=== PATIENT | female | born 1950 | race Native Hawaiian/Other Pacific Islander ===

== ENCOUNTER 2016-10-05 10:54 | Inpatient (IN) | payer OTHER, MEDICAID ==
[~2016-10-05] VITALS: Ht 160 cm; Wt 72.7 kg
[2016-10-05 11:05] VITALS: BP 141/60; PULSE 80; RESP 16; O2SAT 96
[2016-10-05 11:24] LABS: BASOPHILS % (AUTO) 0.1 % (0-3); EOSINOPHILS % (AUTO) 1.9 % (0-5); MONOCYTES % (AUTO) 9.9 % (4-12); Mean Corpuscular Hemoglobin 29.1 pg (27.0-35.0); Mean Corpuscular Volume 90.2 fL (81-100); NEUTROPHILS % (AUTO) 62.2 % (40-74); Platelet Count 281 bil/L (150-400)
[2016-10-05 12:27] LABS: APPEARANCE,URINE HAZY (CLEAR,HAZY); COLOR,URINE YELLOW (YELLOW); OCCULT BLOOD,URINE TRACE (NEGATIVE); UROBILINOGEN,URINE NORMAL (NORMAL)
--- NOTE | 2016-10-05 13:21 | ED.REPORT ---
HPI-Psychiatric Illness Date of Service Oct 05, 2016 ED Provider: Anita Dodge History of Present Illness: patient brought in by police. released from [facility] after being there 1 day. Police feel unable to care for self. When seen in [facility] and asked how long she will be there, she replied "once they find out I did not kill the body in my yard, I will be released". denies medications or primary care. Denies health concerns. Nursing Notes Stated Complaint: PSYCHOSIS Chief Complaint: Psychiatric Complaint Nursing Notes Reviewed: Yes Allergies: Coded Allergies: No Known Allergies (Unverified , 10/05/16) General Time Seen by MD: 10:56 Chief Complaint Bizarre behavior Hx Obtained From: Patient, Police Arrived By: Police Risk-Psychiatric Illness Suicide Risk Stratification Suicide Risk Factors - Adult: No: Access to firearms, Alcohol use, Close associate suicide, Family Hx of Suicide, Previous attempt, Prior psych admission , Substance abuse RF Statements: Risk factors reviewed Past Medical History Past Medical History denies Past Surgical History denies Social History unable to obtain, rambling Review of Systems Basic Review of Systems Eyes: Vision NL, No discharge ENT: Hearing NL, No pain, No nasal congestion, No pharyngeal pain : No dysuria, No frequency Musculoskeletal: No extremity swelling, No extremity pain, Full range of motion , Joints NL Hematologic: No bleeding, No bruising Endocrine: No cold intolerance, No heat intolerance, No weight gain, No weight loss Allergy / Immune: No allergy Physical Exam Initial Vital Signs Vital Signs (First) Date Time Temp Pulse Resp B/P Pulse Ox O2 Delivery O2 Flow Rate FiO2 10/05/16 11:05 36.7 80 16 141/60 96 Room Air Initial VS: Reviewed, Vital signs normal Head / Eyes: Atraumatic, Normocephalic, PERRL ENT: Mucous membranes moist, Conjunctiva normal, No scleral icterus Neck: Supple, Non-tender, Full range of motion Respiratory: Breath sounds normal, Clear to auscultation, No respiratory distress Cardiovascular: Regular rate & rhythm, Heart sounds normal, Intact distal pulses Abdomen / GI: Soft, Non-tender, No guarding, No rebound, No distention Back: No CVA tenderness Lymphatic: No lymphadenopathy Extremities: Vascular intact, Neuro intact, No swelling, No tenderness Skin: Warm, Dry, No cyanosis General/Constitutional: Awake, Alert, No acute distress, Cooperative Neurologic: Oriented X3, Speech NL, No motor deficits Abnormal Thinking / Perception: Positive: Delusions - paranoid appears unkempt, toenails long, hair has not been combed Head / Eyes: Atraumatic, Normocephalic, PERRL ENT: Atraumatic, Airway patent, Mucous membranes moist, Pharynx NL Respiratory / Chest: Atraumatic, Breath sounds NL, Breath sounds = bilat Cardiovascular: Heart rate NL, Regular rhythm, Heart sounds NL Abdomen: Atraumatic, Soft, Non-tender, McBurney's non-tender toenails are long with no recent triming, patient states can't reach her nails Interpretation & Diagnostics Lab Results Interpretation Result Diagram: 10/05/16 1115 10/05/16 1115 Test 10/05/16 11:15 10/05/16 11:26 10/05/16 11:40 White Blood Count 7.2th/mm3 (3.8-10.1) Red Blood Count 4.50mil/mm3 (3.90-5.20) Hemoglobin 13.1g/dL (12.0-15.6) Hematocrit 40.6% (35.0-46.0) Mean Corpuscular Volume 90.2fL (81-100) Mean Corpuscular Hemoglobin 29.1pg (27.0-35.0) Mean Corpuscular Hemoglobin Concent 32.3% (32.0-37.0) Red Cell Distribution Width 15.1% (12.3-15.4) Platelet Count 281bil/L (150-400) Neutrophils (%) (Auto) 62.2% (40-74) Lymphocytes (%) (Auto) 25.8% (14-46) Monocytes (%) (Auto) 9.9% (4-12) Eosinophils (%) (Auto) 1.9% (0-5) Basophils (%) (Auto) 0.1% (0-3) Sodium Level 140mEq/L (134-144) Potassium Level 4.6mEq/L (3.5-5.2) Chloride Level 102mEq/L (97-108) Carbon Dioxide Level 28mmol/L (18-29) Blood Urea Nitrogen 13mg/dL (8-27) Creatinine 0.59mg/dL (0.57-1.00) Estimat Glomerular Filtration Rate 147mL/min (>59) Glucose Level 100mg/dL (60-99) Calcium Level 9.8mg/dL (8.5-10.1) Total Bilirubin 0.2mg/dL (0.0-1.2) Aspartate Amino Transf (AST/SGOT) 15U/L (0-50) Alanine Aminotransferase (ALT/SGPT) 13U/L (0-32) Alkaline Phosphatase 67U/L (25-165) Total Protein 7.0g/dL (6.4-8.4) Albumin 3.9g/dL (3.4-5.0) Thyroid Stimulating Hormone (TSH) 3.600uIU/mL (0.450-4.500) Hold Coker Top Tube Received (Received) Hold Urine Received (Received) Urine Color Yellow (YELLOW) Urine Appearance Hazy (CLEAR,HAZY) Urine pH 6.0 (5.0-8.0) Urine Specific [place] 1.025 (1.003-1.035) Urine Protein Negativemg/dL (NEG,TRACE) Urine Glucose (UA) Negativemg/dL (NEGATIVE) Urine Ketones Negativemg/dL (NEGATIVE) Urine Occult Blood Trace (NEGATIVE) Urine Nitrite Negative (NEGATIVE) Urine Bilirubin Negative (NEGATIVE) Urine Urobilinogen Normalmg/dL (NORMAL) Urine Leukocyte Esterase Small (NEGATIVE) Urine RBC 3-10/hpf (0-2) Urine WBC 6-10/hpf (0-5) Urine Epithelial Cells Occasional/hpf (NONE-MOD) Urine Crystals None seen (NONE SEEN) Urine Bacteria Few/hpf (NONE-FEW) Urine Hyaline Casts None/lpf (NONE) Urine Granular Casts None seen (NONE SEEN) Urine Waxy Casts None seen (NONE SEEN) Urine Red Blood Cell Casts None seen (NONE SEEN) Urine White Blood Cell Casts None seen (NONE SEEN) Urine Mucus Present (None Seen) Urine Trichomonas None seen (NONE SEEN) Urine Yeast None (NONE SEEN) Urinalysis Comment None Urine Culture Reflexed Indicated Lab Results Interpretation: urine is negative CT Head Interpretation Noncontrast 4.5 mm thick angled axial sections acquired from the foramen magnum to the vertex, with coronal reformats. COMPARISON: None. FINDINGS: Image quality: Excellent. CSF spaces: Basal cisterns are patent. No extra-axial fluid collections. The ventricles are symmetric in size and shape. Brain: No intracranial bleeds or masses. There is cerebral volume loss for age, with resultant ventricular and sulcal prominence. There are periventricular and deep white matter chronic small vessel ischemic changes. There is intracranial internal carotid artery atherosclerosis. Skull and face: Calvarium and visualized facial bones appear intact, without suspicious lesions. Sinuses: Visualized sinuses and mastoids are clear. IMPRESSION: No abnormality, other than minimal atrophic change, is found in this CT scan of the head done without contrast. Dictated by: Nasim Ramos M.D. on 10/05/2016 at 18:13 Re-Eval/Medical Decision Med Decision/Clinical Course patient with clear parnoia. Discharge & Departure Impression: Primary Impression: Paranoia (psychosis) Disposition: ADMITTED TO HOSPITAL Referrals: NOPCP (PCP) EDSupervising Provider for APC: Bandar Burr MD Attending Statement I have conducted and evaluation of this patient and reviewed the documentation per the UTILIZATION COORDINATOR. I agree with the documentation as above. Anita Dodge [facility] Oct 05, 2016 13:21 Bandar Burr MD Oct 05, 2016 18:30
[2016-10-05] MEDS ORDERED: Ketamine 100 mg/mL 5 mL Inj IM ONE (16:45)
[2016-10-05 17:30] VITALS: PULSE 112; RESP 14; O2SAT 96
[2016-10-05 18:17] VITALS: PULSE 82; RESP 16; O2SAT 99
--- NOTE | 2016-10-05 18:17 | DRSVH ---
PROCEDURE: CT BRAIN WITHOUT CONTRAST ([id number]) INDICATIONS: changes in behavior TECHNIQUE: Noncontrast 4.5 mm thick angled axial sections acquired from the foramen magnum to the vertex, with c oronal reformats. COMPARISON: None. FINDINGS: Image quality: Excellent. CSF spaces: Basal cisterns are patent. No extra-axial fluid collections. The ventricles are symmet rafia in size and shape. Brain: No intracranial bleeds or masses. There is cerebral volume loss for age, with resultant vent ricular and sulcal prominence. There are periventricular and deep white matter chronic small vessel ischemic changes. There is intracranial internal carotid artery atherosclerosis. Skull and face: Calvarium and visualized facial bones appear intact, without suspicious lesions. Sinuses: Visualized sinuses and mastoids are clear. IMPRESSION: No abnormality, other than minimal atrophic change, is found in this CT scan of the head done without contrast. Dictated by: Nasim Ramos M.D. on 10/05/2016 at 18:13 Approved by: Nasim Ramos M.D. on 10/05/2016 at 18:15
--- NOTE | 2016-10-05 19:10 | NUR ---
Nurses Admission Note 65 year old female involuntarily committed at 1700 today as gravely disabled and danger to others and property.Patient arrived to the ER from longterm where she had been detained under suspicion of murdering her roommate whom was found and rolled up in a tarp on the porch. Its been reported by neighbors that she has been threatening to kill them, believing they are following her placing bodies around the neighborhood and are grinding dogs into sausages and feeding it to people. Patient has been living in [facility] in a home without running water,electricity or toilets. Patient has no previous psychiatric history although per her sons' conversation with the [facility], the patient has had paranoia for 30 years. Her son reported that he has been buying food and paying her storage bill. patient received Ketamine in the ER to perform CT head scan with was unremarkable. Patient arrived on the unit sedated with an unsteady balance. She was dry heaving at the bedside,was given water to sip and a basin. Patient was unable to be interviewed effectively or able to sign admission paperwork. Will maintain q 15min. checks for safety and support.
[2016-10-05 19:17] VITALS: BP 141/60; PULSE 82; RESP 16; O2SAT 99
[2016-10-05] MEDS ORDERED: LORazepam 1 mg Tablet PO PRN (22:50)
[2016-10-05] MEDS ORDERED: Alum-Mag Hydrox-Simeth 30 mL Suspension PO PRN (22:50)
[2016-10-05] MEDS ORDERED: Magnesium Hydroxide 10 mL Oral Concentration PO PRN (22:50)
--- NOTE | 2016-10-06 04:41 | NUR ---
Pt arrived at 1910. Did not sign paperwork as she was nauseous and had been medicated in ER. Asleep at 2245. Pt observed every 15 minutes as ordered.
--- NOTE | 2016-10-06 05:13 | NUR ---
nursing, nights, 11-7 s/o- has appeared to sleep after 2244 during q 15 minute assessments. a- no apparent distress. p- monitor behavior/emotional state, quality, times and amount of sleep, use and effect of medication. betty
[2016-10-06 10:05] VITALS: BP 156/96; PULSE 106; RESP 16
--- NOTE | 2016-10-06 12:16 | NUR ---
Nursing Day Shift- S- "They cut my fingernails in the residential because one of the bodies had claw levy in the skin and they where looking for evidence. I was cleared. There were 5 bodies, all male but then the police came and switched them out with female bodies. I've been locking the door at night because the neighbors have been doing a lot of scary things. I sit and work on my writing. 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 Some of them have been published. I moved to the house 7.5 years ago because I used to walk to get there and it would take [address], and my legs would hurt when I got there. I volunteered my time to help. 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 I should be able to return to the house, my name has been on the title for 23 years now. I had a bed in the house. I haven't been to the 's in 30 years." O- Pt. was in bed and appeared asleep at the start of the day shift. She awoke at 8ish. Pt. was encouraged to eat breakfast then shower. She denied depression, anxiety, auditory or visual hallucinations. Pt. was polite with a steady gait. She was oriented x3. Pt. was aware that she had been at the residential. She denied any medical conditions or pain. She denied any medications or drug and alcohol use. Pt. was willing to answer questions. Her answers did not appear to match what was known of her history. Some of her responses contradicted what she had recently said. She eat well at meals. A- Pleasant, delusional, Poor historian, Multiple missing teeth, with what appear to be several rotten remaining. P- MD to evaluate today. Cont. BHTP.
--- NOTE | 2016-10-06 14:22 | HP ---
[address] [address] HISTORY AND PHYSICAL PATIENT: LALI DONOHUE : 1950 MR#: [id number] ADMIT: 10/05/2016 JOB ID: [id number] IDENTIFICATION: The patient is a 65-year-old single, white female. She has a very supportive brother who helps her with finances, groceries. 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 She has been living at the place where she had been providing care. REASON FOR ADMISSION: Client brought to the ED from the assisted by police for evaluation and treatment of psychosis. HISTORY OF PRESENT ILLNESS: The patient presents today for evaluation and treatment of psychotic symptoms. I met with her for a 60 minute evaluation, reviewed course and records kept by [facility], the police report in the involuntary [facility] papers. Client's main issue is in acute psychotic state secondary to being emotionally overwhelmed. Her paranoid symptoms are reportedly chronic and have been present for the past 30 years. However, she has been functional. The neighbors called because they were concerned and they found Mr. Vinson body wrapped up and left on the porch. Initially there was some concern that this was a homicide and the patient was taken to assisted for several days. However, the report is that he of natural causes. It appears that she was overwhelmed by the event and is currently describing completely amnestic state. She believes that she owns the house and lives in the house. She believes that there has never been a Charlie Layton and that the body that they found on her porch was a female body, not Mr. Stovers. The police report that he is the mold blower of the house and that her brother confirmed in chart review that she had been his caregiver for seven years. At present, she denies symptoms of depression, ko or psychosis. She presents quite well initially but after 30-60 seconds begins to talk in a delusional manner with delusions of persecution, yarsanism and paranoia. She believes that the neighbors are not human. She believes that Mr. Vinson body was not human and was a magical being. She feels that multiple things are being stolen from her house by her neighbors and she has in the past threatened homicide. At this point she denied suicidal ideation, homicidal ideation and stated that this is simply a big misunderstanding. She denies ever being on psychiatric medications and has no interest in treatment of psychosis because "I'm fine." She is currently presenting with no emotional liability or difficulty with impulse control. Her judgment, insight, coping and reality testing are all severely impaired. PAST MEDICAL HISTORY: MEDICATIONS: Client denies. ALLERGIES: Client denies. ILLNESSES: Client denies. FAMILY MEDICAL HISTORY: Client denies. PAST PSYCHIATRIC HISTORY: Client denies. PSYCHOSOCIAL HISTORY: Client states she was born in [place] and graduated from [employer]. 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 HISTORY OF TRAUMA: Client denies drug and alcohol history. Client denies lethality. Client denies suicidal ideation or previous suicide attempts. RELATIONSHIPS: Client states she has been for 34 years. She stated her was incarcerated for two years for fake murder charges. She stated that he was recently released. All of this appears to be delusional and a projection. ORIENTAL ORTHODOX: "I'm a born again [employer]ism. I don't attend faith." LEGAL HISTORY: Client recently cleared from murder charges in assisted. They report that Mr. Layton of natural causes. PHYSICAL EXAMINATION: Normal gait. Balance steady. Vital signs within normal limits. MENTAL STATUS EXAMINATION: Client has neatly styled hair but she had strong body odor and very unkept dental hygiene and nail care. She had good eye contact. Her behavior was calm and her attitude was aloof and detached. Speech normal rate and rhythm. Mood fine. Affect flat, restricted. No lability. Thought process: Client unable to relate a coherent history. She does not appear to be responding to internal stimuli. She was able to talk quite freely and spontaneously about different events in her life from [place] to living in [place]. Thought content: Multiple delusions of a paranoid, persecutory and congregational nature. Consistently denied suicidal ideation, homicidal ideation. She was alert and oriented to person, place and date. Her immediate short and long-term memory intact. Her attention and concentration are actually relatively good. Insight and judgment severely impaired. Impulse control highly contained but rigid. Reality testing is severely impaired. Competence to handle stressors is currently being overwhelmed. LABORATORIES: October 06, 2016: CT of the head normal. CBC, liver, electrolytes normal. UDS negative. IMPRESSION: The patient is a 65-year-old, white female, admitted on a 72 hour involuntary treatment hold after police found the body of the person that she was caring in the house and staying at his house. He had apparently several weeks ago. Client is currently completely dissociated in terms of her relationship with Mr. Lyaton. She believes she owns the house. She denies that she ever knew Mr. Layton. She talks in a very paranoid and persecutory way about the neighbors being not human and that the body found on her porch was an alien. She has no other psychotic symptoms and is refusing any kind of psychiatric medication. She stated, "I'm fine waiting until I can talk to the eap clinician." DIAGNOSIS: AXIS I 1. Psychosis unspecified. 2. Adjustment disorder with disturbance of emotion. AXIS II Defer. AXIS III None. AXIS IV Severe. AXIS V Current global assessment of functioning equal to 30. PLAN: Recommend client be admitted to our unit and be provided with a high degree of safety through the structure and active adult engagement that she will receive. We will have her participate in one-to-one unit and group activities focused on improving reality based thinking and coming up with a follow up plan for how to care for herself after discharge. She is on a 72 hour involuntary treatment hold. She will be given a chance to talk with her bridge repair crew person on Sunday. It is likely she will need a 14-day involuntary treatment hold. I offered the client Zyprexa starting at a low dose 5 mg h.s. but she refused. I will meet with her every day to see if I can develop an alliance that would allow education about her condition and the need for medications.
--- NOTE | 2016-10-06 17:59 | NUR ---
[facility] Day Shift Pt maintained behavioral control throughout the shift. Pt affect appears mostly flat, occasionally superficially bright. Pt spends most of the shift resting in her room and occasionally participating in unit activities. Pt is pleasant and appropriate with staff and peers when active on the unit. Pt occasionally appears vacant, or attentive to internal stimuli. Pt did not attend community meeting, but did participate in unit activities throughout the shift. Pt attended all meals and ate approx 80% of all meals.
--- NOTE | 2016-10-06 17:59 | NUR ---
Busgirl/Counselor: S: "I don't need to take any medicine." O: Patient only slept 7.5 hours last night as per staff. She denies S/I and H/I. She also denies auditory and visual hallucinations. She did not rate depression and anxiety. A: Patient is cooperative, unkept, flat affect, delusional, paranoid, poor historian, severely impaired insight and judgment. P: Follow care plan, coordinate out-patient providers.
--- NOTE | 2016-10-06 19:21 | NUR ---
NURSING NOTE [id number] Mood= "I'm hatching from my egg" *smiles* Affect= blunted, sad Behavior= pt. has mostly isolated to her room this shift, sitting on her bed w/eyes open, often staring into space, did come out for her evening meal but not seen socializing w/peers. Thought processes= delusional, paranoid, disorganized. Able to carry surface conversation for a while but ultimately delves into delusional thought content. She denies all issues but when this singer songwriter pointed out to her that she appears sad she admitted "yes I'm a little bit sad because I'm here and don't want to be" and is worried about her home and neighbors invading it; "I live alone, my left me and the police didn't shut the door properly after him so now the neighbors can come in whenever they please and take my things and take my mail. Pt. was oriented to person, place, time, date, and U.S. President but not oriented to her situation whatsoever. PRNs Ibuprofen 600 mg @ 18:02 for 6/10 neck, back and headache pain
--- NOTE | 2016-10-07 05:51 | NUR ---
Nursing note: shift superintendent Patient appears to be sleeping on safety checks during the night.
--- NOTE | 2016-10-07 06:02 | NUR ---
Pt isolated to room entire shift. Asleep at 2100. Pt observed every 15 minutes as ordered.
--- NOTE | 2016-10-07 11:53 | NUR ---
Nursing Day Shift- S- "I do still hurt. he ibuprofen was helpful." O- Pt. had slept 7 plus hours per shift report. She was awake for breakfast, eat 100%, and socialized politely with peers and staff. Pt. again denied depression, auditory or visual hallucinations. She attributed moderate anxiety to concerns over her neighbors. Pt. requested and received Ibprofen 600 mg at 1140 for back pain rated 6/10. She reported that it had been effective yesterday. A- Appropriate and calm on the surface, confused and delusional regarding history. P- Cont. BHTP
[2016-10-07 12:22] VITALS: BP 143/96; PULSE 93; RESP 20
--- NOTE | 2016-10-07 15:40 | PCM.PNPSY ---
Subjective Date of Service Oct 07, 2016 Subjective I spent 30 minutes both reviewing treatment plan and providing supportive/ educational psychotherapy. I spent more than 50% of the time counseling the patient. I reviewed the treatment plan with the patient and discussed options available including the potential risks, benefits and side effects. Marbin reports difficulty with thought organization or mood stability. Staff reports that she has been active and participating well in one-to-one unit and group activities. She slept 8 hours and denies depression manic or psychotic symptoms review. She remained superficially pleasant and cooperative as long as I do not ask her about details relating to her self-care, her housing, her relations, or the recent investigation of her employer was found . When I begin to ask her these questions her thoughts become tangential and her explanations bizarre. She declined all offers of medications. She did not appear to understand the need for medications by the questions she asked during our discussion. Current Medications Current Medications Ibuprofen 600 mg Q4H PRN PO Last administered on 10/07/16 12:01; Admin Dose 600 MG; Start 10/06/16 at 16:55 Ketamine HCl 100 mg ONCE ONCE IM Last administered on 10/05/16 17:34; Admin Dose 100 MG; Start 10/05/16 at 16:45; Stop 10/05/16 at 16:46; Status DC Mental Status Exam Vital Signs Vital Signs Date Time Temp Pulse Resp B/P Pulse Ox O2 Delivery O2 Flow Rate FiO2 10/07/16 12:22 36.7 93 20 143/96 Appearance: Unkept, Disheveled Attitude: Pleasant, Cooperative Behavior: Distractible Affect: Well Modulated/Appropriate Mood: Euthymic Thought Process/Associations: Tangential, Circumstantial, Other Speech Production: Normal Speech Rate: Normal Speech Articulation: Normal Thought Content: Other (client is expressing a psychotic level of denial about facts related to her alf) Danger to Self/Suicidal Ideati: None Danger to Others: None Delusions: Other (fixed delusional belief that she owns the house where her employer recently . He in fact is the legal lab asst.) Consciousness: Alert Orientation: Person, Place, Date Memory: Grossly Intact Attention/Concentration & Cogn: Grossly Intact Insight: None Judgement: Poor Result Diagram: 10/05/16 1115 10/05/16 1115 Mental Health Plan [place] AXIS I 1. Psychosis unspecified. 2. Adjustment disorder with disturbance of emotion. AXIS II Defer. AXIS III None. AXIS IV Severe. AXIS V Current global assessment of functioning equal to 30. Medications Treatments Patient is being provided with a high degree of safety through the structure and active adult engagement. We will focus on developing improved coping skills and identifying stressors that may have led to current episode. We will attempt to: Integrate into therapeutic groups, milieu and individual therapy. Maintain in a closely monitored and structured unit Provide low-stimulation environment Obtain collateral data to assist in treatment planning Assess degree of lability of affect and impulse control Complete safety plan Decrease frequency of relapse and need for re-hospitalization Denies thoughts of harm to self and/or others Establish a consistent sleep pattern Educate about and identify a medication regimen effective in stabilization of mood and/or thought process Tolerates medication without side effects Patient will be on the following psychiatric medications: Patient is declining any offers of medication Address patient's legal status Patient is on a 72 hour involuntary treatment hold. Patient will be given the opportunity to talk to her member certification manager and the bark scaler Matt Rabago MD Oct 07, 2016 15:40
--- NOTE | 2016-10-07 17:38 | NUR ---
Observations 0700 to 1900 Pt maintained behavioral control throughout the shift. Pt is euthymic, childlike. Pt alternated between D.R. and room throughout the day. Pt seemed to spent much of time around hers room organizing small items. Pt seems to enjoy interacting with other pts set daily goal to fold towels in room, do laundry. Pt ate 75-100% of meals and was observed every 15 minutes as ordered.
--- NOTE | 2016-10-07 18:34 | NUR ---
NURSING NOTE [id number] Orientation= x3 (not oriented to situation) Mood= "good" Affect= flat, blunted Behavior= pt has spent most of the shift isolating in her room, sitting on her bed. Sometimes she is reading a magazine and other times just sitting on her bed staring into space. Does interact She asked to clip her toenails and did so under this marketing writer's supervision. Several of her toenails were circa 0.5 inches long and curving sideways. Pt reported her nails "are like this because I've always worn tennis shoes and mowed lawns-- I keep walkin', walkin', walkin'" Thought processes= pt. expresses no insight into why she is here, still very delusional about her neighbors. As she was clipping her toenails tonight she spoke about how her neighbors "keep stealing my clippers so I can't trim my nails" and expressed paranoia about police and the FBI. 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 Pt. denies depression, anxiety, SI/HI/AH/VH.
--- NOTE | 2016-10-07 18:37 | NUR ---
Senior Quality Methods Specialist./ c.m. S.:"This is the best vacation I ever had! I'm having time of my life! It would be even better if I had TV in my room." O.: met with pt. in the Dining room. She was coloring a picture. She slept well last night. She said that she had "a great mattress and a nice room". She denied SI/HI, denied AH/VH, denied depression or anxiety. She told curriculum writer her story that was changing in a process of a conversation. She believes that she can go back to the house where she has been living. She was in and out of her room but mostly keeping to herself. A.: pt. is pleasant, cooperative, delusional, has a bright affect and a good eye contact. P.: monitor behavior, follow care plan.
--- NOTE | 2016-10-08 06:20 | NUR ---
Nursing Noc Pt noted to isolate to room this entire shift. Noted to be first asleep at 2200 and remained asleep throughout this shift. Q15 minute safety snacks performed throughout the night, Continuing to monitor safety, mood, behavior, emotional state and sleep times. CP
[2016-10-08 10:54] VITALS: BP 148/94; PULSE 102; RESP 16
--- NOTE | 2016-10-08 11:27 | NUR ---
Nursing Day Shift- S- "Today is Sunday Isn't it? Maybe tomorrow I could talk to a wire worker about getting on disability. When I leave here I won't have any money. I paid into SS a few times. The most I ever made in a month was 600.00 dollars. I had 6 bank accounts but the neighbors stole my mail and stole them all. There was 5 men bringing me bottled water and groceries because they stole my money and that was part of the court arrangement for paying me back. They said they were my son, but none of them looked like him. All my family knows I'm here, because they have been looking out for me. The police would have told them. I had 2 toilets, but one broke when it got filled with body parts and they put it out in the yard because it stunk so bad. The downstairs toilet worked until the neighbors stole the pipes and put a cap on the bottom of it. I emptied the buckets in the bathtub, but you had to add a lot of water to make a slurry out of it so it would go down. We had an outhouse in the [facility]. The house had a gold mine under it and the man would move the gold out every night into trucks." O- Pt. was asleep at the start of the shift. She had slept 8 plus hours per report. Pt. joined her peers and eat 100% breakfast and lunch. She denied depression, auditory or visual hallucinations. Pt. stated the above in response to staff questions that were intended to encourage her to contact family. She expressed pleasure at a warm environment, and hot meals. A- Oriented to time and plans for meeting basic needs. Delusional. P- Cont. BHTP. CM to be informed ofPt's request for assistance with connecting to services.
[2016-10-08] MEDS ORDERED: Alum-Mag Hydrox-Simeth 30 mL Suspension PO PRN (12:30)
[2016-10-08] MEDS ORDERED: Magnesium Hydroxide 10 mL Oral Concentration PO PRN (12:30)
[2016-10-08] MEDS ORDERED: Benzocaine-Menthol Lozenge 2/Pkg PO PRN (12:30)
--- NOTE | 2016-10-08 12:31 | PCM.PNPSY ---
Subjective Date of Service Oct 08, 2016 Subjective I spent 30 minutes both reviewing treatment plan and providing supportive/ educational psychotherapy. I spent more than 50% of the time counseling the patient. I reviewed the treatment plan with the patient and discussed options available including the potential risks, benefits and side effects. Sarita denies difficulty with thought organization or mood stability. Staff reports that she has been active and participating well in one-to-one unit and group activities. She slept 7.5 hours and denies depression manic or psychotic symptoms review. She remains superficially pleasant and cooperative as long as I do not ask her about details relating to her self-care, her housing, her relations, or the recent investigation of her employer was found . When I begin to ask her these questions her thoughts become tangential and her explanations bizarre. She declined all offers of medications. She did not appear to understand the need for medications by the questions she asked during our discussion. Current Medications Current Medications Ibuprofen 600 mg Q4H PRN PO Last administered on 10/07/16t 12:01; Admin Dose 600 MG; Start 10/06/16 at 16:55 Mental Status Exam Vital Signs Vital Signs Date Time Temp Pulse Resp B/P Pulse Ox O2 Delivery O2 Flow Rate FiO2 10/08/16 10:54 36.3 102 16 148/94 Appearance: Unkept, Disheveled Attitude: Pleasant, Cooperative Behavior: Distractible Affect: Well Modulated/Appropriate Mood: Euthymic Thought Process/Associations: Tangential, Circumstantial, Other Speech Production: Normal Speech Rate: Normal Speech Articulation: Normal Thought Content: Other (client is expressing a psychotic level of denial about facts related to her [facility]) Danger to Self/Suicidal Ideati: None Danger to Others: None Delusions: Other (fixed delusional belief that she owns the house where her employer recently . 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 He had apparently of natural causes several weeks ago. When the police were notified they initially thought that she had killed the man And she was held in [facility]. It was determined that it was natural causes and she was transferred to [facility] for evaluation and treatment. She is currently completely dissociated in terms of her relationship with Mr. Layton. She believes she owns the house. She denies that she ever knew Mr. Layton. She talks in a very paranoid and persecutory way about the neighbors being not human and that the body found on her porch was an alien. She has no other psychotic symptoms and is refusing any kind of psychiatric medication. She stated, "I'm fine waiting until I can talk to the customer service and sales consultant." [place] AXIS I 1. Psychosis unspecified. 2. Adjustment disorder with disturbance of emotion. AXIS II Defer. AXIS III None. AXIS IV Severe. AXIS V Current global assessment of functioning equal to 30. Medications Treatments Patient is being provided with a high degree of safety through the structure and active adult engagement. We will focus on developing improved coping skills and identifying stressors that may have led to current episode. We will attempt to: Integrate into therapeutic groups, milieu and individual therapy. Maintain in a closely monitored and structured unit Provide low-stimulation environment Obtain collateral data to assist in treatment planning Assess degree of lability of affect and impulse control Complete safety plan Denies thoughts of harm to self and/or others Establish a consistent sleep pattern Educate about and identify a medication regimen effective in stabilization of mood and/or thought process Tolerates medication without side effects Patient will be on the following psychiatric medications: Patient is declining any offers of medication Address patient's legal status Patient is on a 72 hour involuntary treatment hold. Patient will be given the opportunity to talk to her certified orthotist and the customer service and sales consultant Matt Rabago MD Oct 08, 2016 12:31
--- NOTE | 2016-10-08 16:55 | NUR ---
[place] Treatment Supervisor./ c.m. S.:"I'm doing good but I'm in pain because I broke my neck and my back in many places." O.: met with pt. in a private room to work on her Treatment plan and goals. She slept "good" last night. She complained about "pain" in her neck and back. She denied SI/HI, denied depression, denied AH/VH. She talked about her time in senior care and legal hold here. She talked about "3 bodies that were found" in her yard after she "was put in senior care". She said that she "knew about it because" she "talked to" her "neighbors. They called me on my cell phone." She told development writer that "other patients here were using their cell phones too. I saw Yakov talking to his daughter on his cell phone." Pt. was asking about visitation rights here. She said that she read about it in her folder but she wasn't sure if it was true. She had a hard time following a conversation. She was in and out of her room wondering around and looking at pictures in a regan. A.: pt. is cooperative, quiet, confused, paranoid and delusional. She looks internally preoccupied. P.: monitor behavior, follow care plan.
--- NOTE | 2016-10-08 17:33 | NUR ---
[facility] Day Shift Pt affect and behavior unchanged from previous shift. Pt maintained behavioral control throughout the shift. Pt affect appears mostly flat, occasionally superficially bright. Pt spends most of the shift resting in her room and occasionally participating in unit activities. Pt is pleasant and appropriate with staff and peers when active on the unit. Pt occasionally appears vacant, or attentive to internal stimuli. Pt lightly participated in unit activities throughout the shift. Pt attended all meals and ate approx 80% of all meals.
--- NOTE | 2016-10-08 18:09 | NUR ---
NURSING NOTE [id number] Orientation= time, date, place, but not situation Mood= "good" Affect= blunted, pleasant but vacant in conversation Behavior= napping at start of shift. She came out for her meal, sat alone and didn't interact w/peers. Ate most of her evening meal. She reads intermittently but mostly sits on her bed, staring into space. C/o of back aches and neck aches that she reports she sustained in custodial, reports ibuprofen PRN here has given her "some" relief. Thought processes= delusional: this scenario writer asked her if she has been living with anyone and she stated "I've been living alone now for the last 7.5 years", she reported she enjoys being here on the unit because she feels safe here and "no one is gonna murder me here" *smiles*. She went on to state that "lots of people are being murdered where I live, [place], body parts floating in the water-- it's gotten so bad that the seagulls are dying from the rot in the water". When asked about if she has family she stated "I have 3 children" *smiles*, then said "they come in and out of my house-- my neighbors do too-- now that the police didn't shut the door I'm sure they're all in there now" PRNs Motrin 600 mg @ 16:55 for neck and back pain (03/19)
--- NOTE | 2016-10-09 03:50 | NUR ---
Observations from [id number] Pt reamined asleep in her room the entire shift and has been observed every 15 minutes as directed.
--- NOTE | 2016-10-09 05:46 | NUR ---
Nursing NOC Pt stayed in room all evening, asleep since 2014, q 15min checks in place.
[2016-10-09 10:08] VITALS: BP 139/95; PULSE 102; RESP 16
--- NOTE | 2016-10-09 12:53 | NUR ---
Nursing Day Shift- S- "I slept fine. I understood. 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 response to being asked if she understood that her pending court tomorrow was for Mental Health.) O- Pt. had slept well per report. She attended breakfast and eat 100%. She has participated in unit activities and colored in the DR. She continues to be delusional with increased grandiose themes. Pt. declined to take medications before court tomorrow. A- Presentation mostly unchanged past 3 days. Appears relaxed and comfortable with a fair amount of internal stimulation. P- Court tomorrow for possible 14 day MRO.
--- NOTE | 2016-10-09 16:06 | NUR ---
Observations [id number] Pt was asleep during start of shift. Mood appears distant and internally preoccupied. Pt was pleasant to both staff and peers upon interaction. She attended all meals eating 100%. Pt attended Community Meeting, and spent the majority of the day coloring in the dining room. Pt was observed sitting her room staring at the hardwick with a blank expression. Pt was observed every 15 minutes of shift as directed.
--- NOTE | 2016-10-09 18:24 | NUR ---
NURSING NOTE [id number] Orientation= x3 (not situation) Mood= "good, I like being here. There's no regimen I have to stick to. I can just come and go" *smiles* Affect= vacant staring, smiles sporadically in conversation Behavior= mostly isolating to her room and when she does come out to the common area for meals she is only visible on the fringes of the milieu. This news writer heard her speaking to herself in her room once at the beginning of the shift. Thought processes= has a continuous fixed delusion about her neighbors coming into her home and stealing her things, denies AH/VH, denies SI/HI. She said "I noticed other people here have people visit them and bring them clothes. Can I have that too?" When this news writer said she could, and encouraged her to reach out to her family, she seemed reticent to do so, stating: "they're probably cooking supper so I don't want to bother them" and "they're just very busy". When this news writer reminded her she has a new medication, Risperdal, ordered tonight she cut this news writer off mid-sentence and in a pressured tone said: "the doctor said it's going to give me a big fat butt! I'm not taking it, no thank you!"
--- NOTE | 2016-10-09 18:31 | NUR ---
Ticket Puller/Counselor: S: "I'm doing good, I'm feeling good." O: Patient slept 10 hours last night as per staff. She denies S/I and H/I. She also denies auditory and visual hallucinations. Depression is 0/10 and anxiety is 0/10. Patient stated the body that was found on the property, "Was a woman, not really a woman, It was a person from another country. Somebody from [place]. It was a troll. The boy that accused me of something has been arrested and 5 bodies were there. 3 bodies were put there after I went to [facility]. They watched the porch and put them there. I own the house, it's in my name. 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 P: Follow care plan, coordinate out-patient providers.
[2016-10-09] MEDS: risperiDONE 1 mg Tablet PO SCH (20:24)
--- NOTE | 2016-10-09 20:54 | PCM.PNPSY ---
Subjective Date of Service Oct 09, 2016 Subjective The patient reports that she is "doing good." Regarding her reason for hospitalization she states, "that boy that accused me of something was arrested. There were 5 bodies, 3 more got added after I was in custodial. 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 She stated that someone took out the plumbing from underneath the house. She reported the date was 10/09/2016 [facility]. Sleep: 10 hours Appetite: Good Suicidal and homicidal ideation: Denies Auditory hallucinations/Visual hallucinations: Denies Other Psychotic Symptoms: Delusions as above Anxiety/Depression: Denies Mental Status Exam Appearance: Unkept, Disheveled Attitude: Pleasant, Cooperative Behavior: Distractible Affect: Well Modulated/Appropriate Mood: Euthymic Thought Process/Associations: Tangential, Circumstantial Speech Production: Normal Speech Rate: Normal Speech Articulation: Normal Thought Content: Suspicious, Other (multiple delusions) Danger to Self/Suicidal Ideati: None Danger to Others: None Delusions: Paranoid (Endorses), Other (multiple delusions as above) Hallucinations: Auditory (Denies) Consciousness: Alert Orientation: Person, Place, Date Memory: Grossly Intact Estimate Intellectual Function: Average Attention/Concentration & Cogn: Grossly Intact Insight: None Judgement: Poor Result Diagram: 10/05/16 1115 10/05/16 1115 Mental Health Plan Sarita is a 65-year-old, female admitted on a 72 hour involuntary hold. Police initially found the body of a man on the porch of their house. 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 He apparently of natural causes several weeks prior. She was initially held in custodial under investigation of a homicide but upon discovering the nature of his she was transferred to [facility] for evaluation and treatment. The patient has expressed multiple delusions as noted above regarding neighbor's and the fact that she believes that the body was in fact a troll. She previously reported that she believed it was an alien. We discussed the use of antipsychotic medications, the patient denied psychosis and indicated that she did not need medication. She was given informed consent including the risk of tardive dyskinesia and metabolic syndrome. [place] AXIS I Psychotic disorder unspecified AXIS II Defer. AXIS III None. AXIS IV Severe. AXIS V Current global assessment of functioning equal to 25. Medications Treatments 1. The patient is encouraged to participate with group and milieu therapy. 2. The patient is prescribed risperidone 1 mg at bedtime and was given informed consent as noted above. Medication will be titrated as tolerated. 3. The patient will meet with the treatment team on a daily basis to assess symptoms, side effects, and response to treatment. 4. The patient appears to be in need of further inpatient treatment. A 14 day order has been requested and she will have court tomorrow. 5. Estimated length of stay 10-14 days. Terence Brown MD Oct 09, 2016 20:54
--- NOTE | 2016-10-10 01:21 | NUR ---
Observations 1900 to 0700 Pt was in her room for most of the night. Pt did come out to watch TV briefly but went back to her room shortly after. Pt was not very social. Pt first appeared asleep at 21:45 and was observed every 15 minutes through the night as directed.
--- NOTE | 2016-10-10 05:53 | NUR ---
Nursing, Nights, 11-7 s/o- has appeared to sleep 2145 during q 15 minute assessments. a- no apparent distress. p- monitor behavior/emotional state, quality, times and amount of sleep, use and effect of medication.
[2016-10-10 09:00] VITALS: BP 130/89; PULSE 99; RESP 17
--- NOTE | 2016-10-10 11:37 | NUR ---
Nursing Day Shift- S- "I lived alone. I would return to my residence on [facility]." (Pt. made toe above comments in court today.) O- Pt. had slept well again last PM per report. She was dressed and friendly toward staff and peers at breakfast. Pt. continued to deny any mental health concerns. She attended court on the unit and was placed on a 14 day MRO. Pt. made multiple delusional comments in court. A- Pleasant, delusional, slightly angered in court, but maintained behavioral control. P- Pt. placed on 14 Day hold. Awaiting 2nd opinion for forced medications.
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
--- NOTE | 2016-10-10 18:08 | NUR ---
Nursing Note Nanda Shift- Pt up for most of shift watching tv and reading. Pt denied anxiety, depression, SI or hallucinations. Pt A&O x 3, with delusional thought process AEB pt stating, " [place] is a dangerous place, bodies found everywhere, I sit on my front pouch and watch men drown their wives."Once I saw a man with a women head that was dripping blood and had pink flesh flying off it and he was trying to clean it off in the water and the water was turning pink with blood". I asked pt if she was seeing things like that here on the unit and pt stated "No but I cover my head with the blanket at night". While graphically describing bodies pt was laughing and smiling. 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
[2016-10-10] MEDS: risperiDONE 1 mg Tablet PO SCH ×2 (21:00→21:15)
--- NOTE | 2016-10-11 01:29 | NUR ---
Observations 1900 to 0700 Pt was in her room for the entire night. Pt first appeared asleep at 20:00 and was observed every 15 minutes through the night as directed.
--- NOTE | 2016-10-11 06:05 | NUR ---
Nursing 11p-7a Adequate sleep through the night with no noted distress or awakening. Total 9.5+ hours.
--- NOTE | 2016-10-11 12:12 | NUR ---
Nursing Day Shift- S- "I'm going to focus on being positive and making the most of my situation." O- Pt. appeared asleep at the start of the day shift. She awoke for breakfast after sleeping 10 plus hours. and eat 100% at meals. She stated the above for her daily goal, was presented with her admission paperwork, and again declined to sign it. Pt. continues with delusional comments. A- Very limited insight. Good sleep, pleasant, delusional, resistant to medications. P- Cont. with BHTP and 2nd opinion medications if PO refused.
--- NOTE | 2016-10-11 18:16 | NUR ---
NURS evening shift S "Could I get some ibuprofen -- my back is killing me." O Pt requested and given PRN ibuprofen for back pain. When asked about mood stated "I'm okay" and would not elaborate. Expressed concern about not being home to receive package with new clothes. A Pt was calm, pleasant, and cooperative. Concerns about mail/packages suggests paranoia. P Continue with treatment plan and continue to monitor behaviors and back pain.
[2016-10-11] MEDS: risperiDONE 1 mg Tablet PO SCH (20:06)
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
--- NOTE | 2016-10-12 05:22 | NUR ---
Observations 1900 to 0700 Pt was in her room for the entire night. Pt first appeared asleep at 20:45 and was observed every 15 minutes through the night as directed.
--- NOTE | 2016-10-12 05:29 | NUR ---
Nursing, Nights, 11- s/o- has appeared to sleep 2044 during q 15 minute assessments. a- no apparent distress. Pt was willing to take HS PO medicine this shift. p- monitor behavior/emotional state, quality, times and amount of sleep, use and effect of medication.
--- NOTE | 2016-10-12 15:54 | NUR ---
Nursing Day Shift- S/O- Pt. was awake for breakfast. She appeared to have a pleasant smile and increased socialization with her peers. Pt. denied depression, SI, auditory or visual hallucinations. A- Delusional, participatory with medications. Eating well. P- Cont. BHTP.
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
--- NOTE | 2016-10-12 17:50 | NUR ---
NURSING NOTE [id number] Orientation= x3 (not oriented to situation) Mood= "good" Affect= blunted, flat Behavior= spent time out in the dining room this evening watching a movie she enjoys, smiling while watching, otherwise she is visible on the fringes of the milieu and socializing very little w/peers. She appears indecisive about committing to activities, e.g; she is seen standing and staring at coloring pages and markers for several mins and then stated to this greeting card writer "I was thinking about maybe coloring... but maybe I won't" and paging through a book off and on without reading it. Often seen sitting on her bed staring into space. Thought processes= delusional w/church content (mentioning blood in the water near her home and then relating it to [place]). She is denying SI/HI/AH/VH. Denies any disturbed thought processes and gives rogelio answers when the topic is broached.
--- NOTE | 2016-10-12 17:56 | NUR ---
Glass Enamel Mixer/Counselor: S: "I'm doing okay." O: Patient slept 8.75 hours last night as per staff. She denies S/I and H/I. She denies auditory and visual hallucinations. Depression is 0/10 and anxiety is 0/10. When asked her mood, patient stated, "I'm doing okay." Patient stated that she is thinking about going back to her after she discharges. She stated that she has her "some 30 years ago." When the psychiatrist asked patient if he could contact patient's , patient stated, "I'm not going to tell you where he lives because he wouldn't like anybody calling or contacting him. I also have a catholic friend who I might be able to stay with also." When the psychiatrist asked patient if she could possibly stay with her son or daughter, patient stated, "a neighbor pretended to be my son. Maybe he felt guilty for being in my house. He kept bringing me grocery." A: Patient is cooperative, guarded, distractible, restricted, suspicious, paranoid, no insight, poor judgment. P: Follow care plan, coordinate out-patient providers.
--- NOTE | 2016-10-12 18:53 | NUR ---
[facility] Day Shift Pt affect and behavior unchanged from previous shift. Pt maintained behavioral control throughout the shift. Pt affect appears mostly flat, occasionally superficially bright. Pt spends most of the shift resting in her room and occasionally participating in unit activities. Pt is pleasant and appropriate with staff and peers when active on the unit. Pt occasionally appears vacant, or attentive to internal stimuli. Pt attended community meeting in the AM and lightly participated in unit activities throughout the shift. Pt attended all meals and ate approx 80% of all meals.
[2016-10-12 19:20] VITALS: BP 128/79; PULSE 88; RESP 18
[2016-10-12] MEDS: risperiDONE 2 mg Tablet PO SCH (20:04)
--- NOTE | 2016-10-13 05:39 | NUR ---
Pt isolated to room entire shift. Asleep at 2045. Pt observed every 15 minutes as ordered.
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
[2016-10-13 16:30] VITALS: BP 155/91; PULSE 84; RESP 16
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
--- NOTE | 2016-10-13 18:21 | NUR ---
Cabinetmaker Helper/Counselor: S/O: Patient slept 7.2 hours last night as per staff. She denies S/I and H/I. She denies auditory and visual hallucinations. Depression is 0/10 and anxiety is 0/10. A: Patient is cooperative, unkempt, guarded, distractible, restricted, suspicious, paranoid, no insight, poor judgment. P: Follow care plan, coordinate out-patient providers.
[2016-10-13] MEDS: risperiDONE 2 mg Tablet PO SCH (21:01)
--- NOTE | 2016-10-14 04:58 | NUR ---
Pt isolated to room most of shift, out some to watch TV. Asleep at 2315. Pt observed every 15 minutes as ordered.
--- NOTE | 2016-10-14 05:18 | NUR ---
nursing, nights, 11-7 s/o- has appeared to sleep after 2315 during q 15 minute assessments. a- no apparent distress. p- monitor behavior/emotional state, quality, times and amount of sleep, use and effect of medication. betty
--- NOTE | 2016-10-14 13:46 | PCM.PNPSY ---
Subjective Date of Service Oct 14, 2016 Subjective The patient was brighter today, smiling and less guarded. She reported that she might have some muscle stiffness but on physical exam none was noted. There was also no cogwheeling noted. She continued to reports that the body on the front porch was not a human and if it were a human there was likely a female. She stated that she might believe the photography coordinator's report but she would not believe a police report regarding the status of the body. She stated that she might be open to those reported in the newspaper. Sleep: 7+ hours "good" Appetite: Denies Suicidal and homicidal ideation: Denies Auditory hallucinations/Visual hallucinations: Denies Other Psychotic Symptoms: Delusions as above Anxiety: Denies Depression: Denies Current Medications Current Medications Risperidone 2 mg HS PO Last administered on 10/13/16t 21:01; Admin Dose 2 MG; Start 10/12/16 at 21:00 Mental Status Exam Appearance: Neat/well groomed Attitude: Pleasant, Cooperative, Guarded Behavior: No unusual behavior Affect: Well Modulated/Appropriate Mood: Euthymic Thought Process/Associations: Logical/Sequential, Goal Directed Speech Production: Normal Speech Rate: Normal Speech Articulation: Normal Thought Content: Suspicious, Other (multiple delusions, decreased in intensity) Danger to Self/Suicidal Ideati: None Danger to Others: None Delusions: Paranoid (Endorses), Other (delusions as above) Hallucinations: Auditory (Denies), Visual (Denies) Consciousness: Alert Orientation: Person, Place, Date Memory: Grossly Intact Estimate Intellectual Function: Average Attention/Concentration & Cogn: Grossly Intact Insight: None Judgement: Poor Mental Health Plan Sarita is a 65-year-old, female admitted on a 72 hour involuntary hold. Police initially found the body of a man on the porch of their house. 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 He apparently of natural causes several weeks prior. She was initially held in nursing home under investigation of a homicide but upon discovering the nature of his she was transferred to [facility] for evaluation and treatment. Although the patient is still reporting delusional content, she is much more engaged and pleasant and open to the possibility that the individual was actually a human male. At the present time, given the fact that she is never been on medications, appears to be responding to medications, slow titration is warranted. Insight is only minimally improved. [place] AXIS I Schizophrenia chronic paranoid type AXIS II Defer. AXIS III None. AXIS IV Severe. AXIS V Current global assessment of functioning equal to 30. Medications Treatments 1. The patient is encouraged to participate with group and milieu therapy. 2. Risperidone will be continued at 2 mg at bedtime and titrated as needed. Second opinion for medication override was approved, she will receive olanzapine 5 mg IM for each refused dose of by mouth risperidone. 3. The patient will meet with the treatment team on a daily basis to assess symptoms, side effects, and response to treatment. 4. The patient received a 14 day commitment order on 10/10/2016.. 5. Estimated length of stay 14+ days. Terence Brown MD Oct 14, 2016 13:46
--- NOTE | 2016-10-14 15:14 | NUR ---
Nursing Note Day Shift-Depression/Anxiety/SI/Psychosis/Nutrition S/O-"I am not the one who needs a shower...I took a shower yesterday." Pt. has been up for meals. She tends to keep to herself in her room. She stays on the periphery of groups. She has been ambulating the halls and is cooperative and pleasant with staff. She has a steady, even gait and a almost toothless smile. She denies SI, depression, anxiety or hallucinations. She does not initiate any conversation with her peers. She appears internally preoccupied. A-Psychosis. Lack of insight. P-Monitor for safety per protocol. Assess efficacy of meds to decrease psychosis. Encourage engagement in milieu activities when able.
--- NOTE | 2016-10-14 16:16 | NUR ---
Livestock Handler/Counselor: S: "I didn't expect for anything to be in the newspaper about the body on my porch because 'it' was not from here, it wasn't human." O: Patient slept 7+ hours last night as per staff. She denies S/I and H/I. She denies auditory and visual hallucinations. Depression is 0/10 and anxiety is 0/10. Patient smiled a lot during interview and was pleasant during interview. A: Patient is cooperative, unkempt, guarded, distractible, brighter affect, suspicious, paranoid, no insight, poor judgment. P: Follow care plan, coordinate out-patient providers.
--- NOTE | 2016-10-14 17:41 | NUR ---
Observations 0700 to 1900 Pt affect and mood was isolative, religiously preoccupied and flat. Pt speech and eye contact was good. Pt attended group and unit activities. Pt attended community meeting and set a daily goal. Pt was social with staff and select peers when approached. Pt attended meals in [facility] and ate 100% of her meals. Pt maintained behavior throughout the shift. Pt was in her room reading for a majority of the shift. Pt was polite, pleasant and cooperative. Pt was observed every 15 minutes throughout the shift as ordered.
[2016-10-14 19:48] VITALS: BP 133/94; PULSE 98; RESP 16
[2016-10-14] MEDS: risperiDONE 2 mg Tablet PO SCH (20:22)
--- NOTE | 2016-10-15 05:12 | NUR ---
Pt isolated to room most of shift, out some to watch TV. Asleep at 2245. Pt observed every 15 minutes as ordered.
--- NOTE | 2016-10-15 06:00 | NUR ---
Nursing note: /sleep Patient appears to be sleeping on safety checks during the night.
[2016-10-15 09:00] VITALS: BP 133/94; PULSE 89; RESP 16
--- NOTE | 2016-10-15 11:17 | NUR ---
Nursing Note [id number] Psychotic Sx S/O: Pt ate 100% of breakfast. Pt out in dining room reading [employer] & writing on paper. Pt turned paper over when approached. Pt stated, "The neighbor came over to my house & took out the toilet pipe....He dug in the crawl space & took out the pipe.The perla at my house had to pee in the bathtub....I own the house....The neighbors are stealing car parts....I don't have any thing to drive because they've stolen parts out of them....They run a [employer] yard." Pleasant & cooperative. Adequate eye contact. D/n interact with peers. A: Pt paranoid & delusional. P: Provide supportive environment. Monitor medications & effects.
--- NOTE | 2016-10-15 15:32 | PCM.PNPSY ---
Subjective Date of Service Oct 15, 2016 Subjective The patient is fairly cooperative today. She was given information regarding the of the gentleman at the house but continued to report that 20 individuals were coming in and out of the house and she did not know who he was. 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 and the outboard system operator gave me a license after interviewing me." Sleep: 8 hours "good" Appetite: "Good" Suicidal and homicidal ideation: Denies Auditory hallucinations/Visual hallucinations: Denies Other Psychotic Symptoms: Delusions as above Anxiety: Denies Depression: Denies Mental Status Exam Appearance: Neat/well groomed Attitude: Pleasant, Cooperative, Guarded Behavior: No unusual behavior Affect: Well Modulated/Appropriate Mood: Euthymic Thought Process/Associations: Logical/Sequential, Goal Directed Speech Production: Normal Speech Rate: Normal Speech Articulation: Normal Thought Content: Suspicious, Other (multiple delusions, decreased in intensity) Danger to Self/Suicidal Ideati: None Danger to Others: None Delusions: Paranoid (Endorses), Other (delusions as above) Hallucinations: Auditory (Denies), Visual (Denies) Consciousness: Alert Orientation: Person, Place, Date, Situation (unclear if she fully understands the situation) Memory: Grossly Intact Estimate Intellectual Function: Average Attention/Concentration & Cogn: Grossly Intact Insight: None Judgement: Poor Mental Health Plan Sarita is a 65-year-old, female admitted on a 72 hour involuntary hold. Police initially found the body of a man on the porch of their house. 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 He apparently of natural causes several weeks prior. She was initially held in prison under investigation of a homicide but upon discovering the nature of his she was transferred to [facility] for evaluation and treatment. Although the patient is still reporting delusional content, she is much more engaged and pleasant and appears less delusionally focused. At the present time , given the fact that she has never been on medications, appears to be responding to medications, slow titration is warranted. If no further improvement in the next several days, the dose should be increased. Insight is only minimally improved. [place] AXIS I Schizophrenia chronic paranoid type AXIS II Defer. AXIS III None. AXIS IV Severe. AXIS V Current global assessment of functioning equal to 30. Medications Risperdal 2 mg at bedtime Treatments 1. The patient is encouraged to participate with group and milieu therapy. 2. Risperidone will be continued at 2 mg at bedtime and titrated as needed. If no further improvement in the next couple of days, we will increase to 3 mg. Second opinion for medication override was approved, she will receive olanzapine 5 mg IM for each refused dose of by mouth risperidone. 3. The patient will meet with the treatment team on a daily basis to assess symptoms, side effects, and response to treatment. 4. The patient received a 14 day commitment order on 10/10/2016.. 5. Estimated length of stay 14+ days. Terence Brown MD Oct 15, 2016 15:32
--- NOTE | 2016-10-15 18:17 | NUR ---
Observations [id number] Pt was asleep upon start of shift. She appears to be more present and able to track conversations better then previous interactions with this rewriter. Pt spent time in her room but also attended groups. Pt is very clean and organized- she was observed methodically cleaning or putting things away. Pt attended all meals, eating 100%. She was friendly with peers and staff, but is not overly social. Pt watched TV in the evening and colored in the dining room. Pt was observed every 15 minutes of shift as directed.
[2016-10-15] MEDS: risperiDONE 2 mg Tablet PO SCH (19:56)
--- NOTE | 2016-10-16 04:48 | NUR ---
Observations from [id number] Pt was out in the common area for a good portion of the evening but didn't interact with peers. Pt appeared asleep 0 and has remained asleep throughout the night. Pt has been monitored every 15 minutes as directed.
--- NOTE | 2016-10-16 05:29 | NUR ---
Nursing note: 11p-07a/ sleep Patient appears to be sleeping on safety checks during the night. No complaints offered.
[2016-10-16 09:45] VITALS: BP 149/106; PULSE 95; RESP 16
--- NOTE | 2016-10-16 14:20 | NUR ---
Nursing Note [id number] Behavior S/O: Pt has good appetite. B/P high at 149/106. Will recheck this afternoon. Other VS stable. Pt is pleasant & cooperative. Conversation tracking clear & organized with normal rate & rhythm. Pt remains delusional about home situation. Pt out in milieu at times, but rarely has interactions with peers. A: Pt unable to care for self d/t delusions. P: Provide supportive environment. Monitor medications & effects.
--- NOTE | 2016-10-16 18:51 | NUR ---
Observations [id number] Pt was awake sitting on bed this morning at beginning of shift. Pt still appears to be very quiet with peers but friendly, and spending much of her time in her room. She stated that she has been washing her clothes in her bathroom sink, and doesn't need clothes washed. It also appears that she has not taken a shower. Pt did attend groups, and ate 100% of meals. Pt was observed every 15 minutes of shift as directed.
--- NOTE | 2016-10-16 20:07 | PCM.PNPSY ---
Subjective Date of Service Oct 16, 2016 Subjective The patient is somewhat guarded today. The patient stated that she "must have the wrong phone book" as she can't find any of her friends. The patient declined assistance from her son and appeared suspicious of the suggestion. She denied medical or side effect complaints. Sleep: 7+ hours "good" Appetite: "Good" Suicidal and homicidal ideation: Denies Auditory hallucinations/Visual hallucinations: Denies Other Psychotic Symptoms: Delusions as above Anxiety: Denies Depression: Denies Mental Status Exam Appearance: Neat/well groomed Attitude: Pleasant, Guarded Behavior: No unusual behavior Affect: Well Modulated/Appropriate Mood: Other (suspicious) Thought Process/Associations: Logical/Sequential, Goal Directed Speech Production: Normal Speech Rate: Normal Speech Articulation: Normal Thought Content: Suspicious, Other (reluctant to discuss delusions) Danger to Self/Suicidal Ideati: None Danger to Others: None Delusions: Paranoid (Endorses), Other (delusions as above) Hallucinations: Auditory (Denies), Visual (Denies) Consciousness: Alert Orientation: Person, Place, Date, Situation (unclear if she fully understands the situation) Memory: Grossly Intact Estimate Intellectual Function: Average Attention/Concentration & Cogn: Grossly Intact Insight: None Judgement: Poor Mental Health Plan Sarita is a 65-year-old, female admitted on a 72 hour involuntary hold. Police initially found the body of a man on the porch of their house. 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 He apparently of natural causes several weeks prior. She was initially held in [facility] under investigation of a homicide but upon discovering the nature of his she was transferred to [facility] for evaluation and treatment. Although the patient is still reporting delusional content, she is more engaged and pleasant and appears less delusionally focused. Insight is only minimally improved but sufficiently so to not freely discuss delusional content. Appears to need increase in medication. [place] AXIS I Schizophrenia chronic paranoid type AXIS II Defer. AXIS III None. AXIS IV Severe. AXIS V Current global assessment of functioning equal to 30. Medications Risperdal 2 mg at bedtime Treatments 1. The patient is encouraged to participate with group and milieu therapy. 2. Increase risperidone to 3 mg. Second opinion for medication override was approved, she will receive olanzapine 5 mg IM for each refused dose of by mouth risperidone. 3. The patient will meet with the treatment team on a daily basis to assess symptoms, side effects, and response to treatment. 4. The patient received a 14 day commitment order on 10/10/2016.. 5. Estimated length of stay 14+ days. eTrence Brown MD Oct 16, 2016 20:07
[2016-10-16] MEDS ORDERED: risperiDONE 2 mg Tablet PO SCH (21:00)
--- NOTE | 2016-10-16 23:00 | NUR ---
Nursing Note Nanda- Pt in milieu coloring upon arrival to unit. Pt cooperative with staff, and isolating to self and not noted socializing with peers. Pt denied anxiety, depression and SI. Pt appears to still be having delusional thought process AEB pt c/t talk about "her house on [facility] [place]". Pt was compliant with meds and is currently resting in bed. Q15 min safety checks done per protocols. WCTM sleep, safety, behavior
--- NOTE | 2016-10-17 06:39 | NUR ---
Nursing Noc s/o- has appeared to sleep after 2315 during q 15 minute assessments. a- no apparent distress. p- monitor behavior/emotional state, quality, times and amount of sleep, use and effect of medication.
[2016-10-17 10:33] VITALS: BP 133/83; PULSE 90; RESP 16
--- NOTE | 2016-10-17 13:00 | NUR ---
Nursing Note [id number] Behavior S/O: Pt has a good appetite. VS stable. Pt attended some groups during the day. Only superficial interactions with peers & staff. Conversation tracking clear & organized with normal rate & rhythm. Pt remained in room most of the time. Pt showered with encouragement. A: Pt very guarded. P: Provide supportive environment. Monitor medications & effects.
--- NOTE | 2016-10-17 19:25 | NUR ---
Hydrological Technical Officer/Counselor: S: "The meds gives my heart palpitations, bang, bang, bang, bang." O: Patient slept 6.5+ hours last night as per staff. She denies S/I and H/I. She denies auditory and visual hallucinations. Depression is 0/10 and anxiety is 0/10. When patient was asked about "the body" that was found on her porch she stated, "The neighbors said it was a female. I walked by it everyday to go to the mailbox but I didn't look at it." A: Patient is cooperative, unkempt, guarded, distractible, brighter affect, suspicious, paranoid, poor insight, poor judgment. P: Follow care plan, coordinate out-patient providers.
--- NOTE | 2016-10-17 19:41 | PCM.PNPSY ---
Subjective Date of Service Oct 17, 2016 Subjective The patient is somewhat guarded today. The patient reports that she was able to locate phone numbers but could not reach anyone. The patient declined assistance from her son and again appeared suspicious of the suggestion. The patient reported again that the body was a female and she has no idea how it got there. The patient reports stiffness in her calves and pounding headache after taking medication and would like to have an alternate medication. We discussed using olanzapine at bedtime and she was given informed consent including the risk of tardive dyskinesia and metabolic syndrome and agreed to proceed. She denied medical or side effect complaints. Sleep: 6.5+ hours, "okay" Appetite: "Good" Suicidal and homicidal ideation: Denies Auditory hallucinations/Visual hallucinations: Denies Other Psychotic Symptoms: Delusions as above Anxiety: Denies Depression: Denies Current Medications Current Medications Risperidone 3 mg HS PO Last administered on 10/16/16t 20:04; Admin Dose 3 MG; Start 10/16/16 at 21:00; Stop 10/17/16 at 12:16; Status DC Mental Status Exam Appearance: Neat/well groomed Attitude: Pleasant, Guarded Behavior: No unusual behavior Affect: Well Modulated/Appropriate Mood: Other (suspicious) Thought Process/Associations: Logical/Sequential, Goal Directed Speech Production: Normal Speech Rate: Normal Speech Articulation: Normal Thought Content: Suspicious, Other (reluctant to discuss delusions, but clearly still present) Danger to Self/Suicidal Ideati: None Danger to Others: None Delusions: Paranoid (Endorses), Other (delusions as above) Hallucinations: Auditory (Denies), Visual (Denies) Consciousness: Alert Orientation: Person, Place, Date, Situation (unclear if she fully understands the situation) Memory: Grossly Intact Estimate Intellectual Function: Average Attention/Concentration & Cogn: Grossly Intact Insight: None Judgement: Poor Mental Health Plan Sarita is a 65-year-old, female admitted on a 72 hour involuntary hold. Police initially found the body of a man on the porch of their house. 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 He apparently of natural causes several weeks prior. She was initially held in residential under investigation of a homicide but upon discovering the nature of his she was transferred to [facility] for evaluation and treatment. Although the patient is still reporting delusional content, she is more engaged and pleasant and appears less delusionally focused. Insight is only minimally improved but sufficiently so to not freely discuss delusional content; she also indicates that she does not need medications or treatment and discharge. As the patient is reporting side effects she would likely be noncompliant on discharge and therefore we will switch to olanzapine which should have less extrapyramidal symptoms. [place] AXIS I Schizophrenia chronic paranoid type AXIS II Defer. AXIS III None. AXIS IV Severe. AXIS V Current global assessment of functioning equal to 30. Medications Risperdal 2 mg at bedtime Treatments 1. The patient is encouraged to participate with group and milieu therapy. 2. Discontinue risperidone and start olanzapine 10 mg at bedtime with a 10 mg IM backup. 3. The patient will meet with the treatment team on a daily basis to assess symptoms, side effects, and response to treatment. 4. The patient received a 14 day commitment order on 10/10/2016.. 5. Estimated length of stay 14+ days. Terence Brown MD Oct 17, 2016 19:41
--- NOTE | 2016-10-18 06:37 | NUR ---
Sleep Adequate sleep through the night with no noted distress or awakening per protocol checks. Total sleep over 7.5 hours.
[2016-10-18 15:30] VITALS: BP 133/86; PULSE 107
--- NOTE | 2016-10-18 17:44 | NUR ---
Day Shift 7a-7p Pt withdrawn, guarded and vague this shift, thoughts organized and linear in conversation with poor insight into why she is receiving treatment, " This place is boring, I don't even know why I am here". No delusional content elicited or observed and she denies A/VH. Pt is making superficial social connections and was seen for brief periods in the common area doing art work with peers. Hygiene good, food and fluid intake adequate. Pt denies side effects to medicaiton, reports the stiffness in legs has resolved. Pt given ibuprofen for a stiff neck with good relief ) see MAR for details.
--- NOTE | 2016-10-18 19:46 | PCM.PNPSY ---
Subjective Date of Service Oct 18, 2016 Subjective The patient reports that she is "contemplating the future." Regarding where she will live on discharge she states, "I haven't got a clue." The patient reports that she feels foggy this morning but otherwise is noting no new side effects. Sleep: 7.5+ hours, "okay" Appetite: "Fine" Suicidal and homicidal ideation: Denies Auditory hallucinations/Visual hallucinations: Denies Other Psychotic Symptoms: Delusions as above Anxiety: Denies Depression: Denies Current Medications Current Medications Olanzapine 10 mg HS PO Last administered on 10/17/16 20:50; Admin Dose 10 MG; Start 10/17/16 at 21:00 Risperidone 3 mg HS PO Last administered on 10/16/16 20:04; Admin Dose 3 MG; Start 10/16/16 at 21:00; Stop 10/17/16 at 12:16; Status DC Mental Status Exam Vital Signs Vital Signs Date Time Temp Pulse Resp B/P Pulse Ox O2 Delivery O2 Flow Rate FiO2 10/18/16 15:30 107 133/86 Appearance: Neat/well groomed Attitude: Pleasant, Guarded Behavior: No unusual behavior Affect: Well Modulated/Appropriate Mood: Other (suspicious) Thought Process/Associations: Logical/Sequential, Goal Directed Speech Production: Normal Speech Rate: Normal Speech Articulation: Normal Thought Content: Suspicious, Other (delusions still present will not discuss) Danger to Self/Suicidal Ideati: None Danger to Others: None Delusions: Paranoid (Endorses) Hallucinations: Auditory (Denies), Visual (Denies) Consciousness: Alert Orientation: Person, Place, Date, Situation (unclear if she fully understands the situation) Memory: Grossly Intact Estimate Intellectual Function: Average Attention/Concentration & Cogn: Grossly Intact Insight: None Judgement: Poor Mental Health Plan Sarita is a 65-year-old, female admitted on a 72 hour involuntary hold. Police initially found the body of a man on the porch of their house. 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 He apparently of natural causes several weeks prior. [facility] of a [facility] but upon discovering the nature of his she was transferred to [facility] for evaluation and treatment. Although the patient is still reporting delusional content, she is more engaged and pleasant and appears less delusionally focused. Insight is only minimally improved but sufficiently so to not freely discuss delusional content; she also indicates that she does not need medications or treatment on discharge. She currently is unsure of where she will live upon discharge. She reports the only side effect from olanzapine at this time is some mental clouding this morning. We discussed that this will likely resolve over the next few days and if not we will need a dosage adjustment. [place] AXIS I Schizophrenia chronic paranoid type AXIS II Defer. AXIS III None. AXIS IV Severe. AXIS V Current global assessment of functioning equal to 30. Medications Olanzapine 10 mg at bedtime Treatments 1. The patient is encouraged to participate with group and milieu therapy. 2. Continue olanzapine 10 mg at bedtime with a 10 mg IM backup. 3. The patient will meet with the treatment team on a daily basis to assess symptoms, side effects, and response to treatment. 4. The patient received a 14 day commitment order on 10/10/2016.. 5. Estimated length of stay 14+ days. Terence Brown MD Oct 18, 2016 19:46
--- NOTE | 2016-10-19 01:52 | NUR ---
Nursing note [id number] Pt up in milieu upon arrival to unit. Pt noted to have minimal engagement with peers. Pt appears to be superficially Bright in conversation with staff and denied anxiety, depression and hallucinations. When asked if she was seeing anything weird or out of the ordinary on the unit she stated" Well I am looking at you" and laughed. Pt was compliant with meds and no PRN's given. Pt noted sleep time 2300 and has had uninterrupted sleep since. Q15 min safety checks done per protocol, [facility] sleep, safety, behavior
[2016-10-19 08:20] VITALS: BP 158/91; PULSE 98; RESP 17
--- NOTE | 2016-10-19 18:10 | NUR ---
Nursing Note [id number] S: They were always coming into my yard at night, doing terrible things, raping girls-I would hear them screaming and screaming all night long. They even cut down some of my evergreens and took them home and burned them to heat their house. They were just kids, you know, but they steal things. They come to my place because there is privacy and they do terrible things. O: Patient reading in dining room, attended activity group for a short time. Quiet, pursuing solitary activities, but interacts appropriately when approached. A: Patient paranoid, pleasant. Cooperative. P: Monitor for safety and response to treatment. Follow plan of care.
--- NOTE | 2016-10-19 20:19 | NUR ---
Observations 0900 to 2130 Pt affect and mood remained the same as previous shifts. Pt speech and eye contact was good. Pt attended group and unit activities. Pt attended community meeting and set a daily goal. Pt was social with staff and select peers when approached. Pt attended meals in D.R. and ate 100% of her meals. Pt maintained behavior throughout the shift. Pt was in her room reading for a majority of the shift. Pt was polite, pleasant and cooperative. Pt was observed every 15 minutes throughout the shift as ordered.
--- NOTE | 2016-10-19 21:52 | PCM.PNPSY ---
Subjective Date of Service Oct 19, 2016 Subjective The patient reports that she is not as groggy today. Patient reports that she does not think she is mentally ill and does not plan to continue treatment on discharge. She reports that we have been in contact with "pretend family members." Sleep: 7+ hours, "fine" Appetite: "Good" Suicidal and homicidal ideation: Denies Auditory hallucinations/Visual hallucinations: Denies Other Psychotic Symptoms: Delusions as above Anxiety: Denies Depression: Denies Mental Status Exam Appearance: Neat/well groomed Attitude: Pleasant, Guarded Behavior: No unusual behavior Affect: Well Modulated/Appropriate Mood: Other (suspicious) Thought Process/Associations: Logical/Sequential, Goal Directed Speech Production: Normal Speech Rate: Normal Speech Articulation: Normal Thought Content: Suspicious, Other (delusions still present will not discuss in detail) Danger to Self/Suicidal Ideati: None Danger to Others: None Delusions: Paranoid (Endorses) Hallucinations: Auditory (Denies), Visual (Denies) Consciousness: Alert Orientation: Person, Place, Date, Situation (unclear if she fully understands the situation) Memory: Grossly Intact Estimate Intellectual Function: Average Attention/Concentration & Cogn: Grossly Intact Insight: None Judgement: Poor Mental Health Plan Sarita is a 65-year-old, female admitted on a 72 hour involuntary hold. Police initially found the body of a man on the porch of their house. 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 He apparently of natural causes several weeks prior. She was initially held in long-term under investigation of a homicide but upon discovering the nature of his she was transferred to [facility] for evaluation and treatment. Although the patient is still reporting delusional content, she is more engaged and pleasant and appears less delusionally focused. Insight is only minimally improved but sufficiently so to not freely discuss delusional content; she also indicates that she does not need medications or treatment on discharge. She currently is unsure of where she will live upon discharge. She reports side effecrs from olanzapine have improved. [place] AXIS I Schizophrenia chronic paranoid type AXIS II Defer. AXIS III None. AXIS IV Severe. AXIS V Current global assessment of functioning equal to 30. Medications Olanzapine 10 mg at bedtime Treatments 1. The patient is encouraged to participate with group and milieu therapy. 2. Continue olanzapine 10 mg at bedtime with a 10 mg IM backup. 3. The patient will meet with the treatment team on a daily basis to assess symptoms, side effects, and response to treatment. 4. The patient received a 14 day commitment order on 10/10/2016.. 5. Estimated length of stay 14+ days. Terence Brown MD Oct 19, 2016 21:52
--- NOTE | 2016-10-20 04:49 | NUR ---
Observations from [id number] Pts mood and affect mostly unchanged from previous shifts. Pt appeared asleep 2300 and has remained asleep through the night. Pt has been monitored every 15 minutes as directed.
--- NOTE | 2016-10-20 05:30 | NUR ---
nursing, nights, 11-7 s/o- has appeared to sleep after 2300 during q 15 minute assessments. a- no apparent distress. p- monitor behavior/emotional state, quality, times and amount of sleep, use and effect of medication. betty
[2016-10-20 08:30] VITALS: BP 141/92; PULSE 97; RESP 16
--- NOTE | 2016-10-20 11:53 | NUR ---
Nursing Day Shift- S/O- Pt. had slept 7 plus hours per report. She was awake for breakfast. Pt. appeared to keep to herself. She eat well, walked in the hallway and read the newspaper. Pt. continues to deny any mental health concerns, or need for psychiatric medications. A- Pt. behavior mostly unchanged since admission. P- Pt. had a preliminary hearing today for court next week. Cont. BHTP. Enforce 2nd opinion for forced medications.
--- NOTE | 2016-10-20 17:47 | NUR ---
[facility] Day Shift Pt affect and behavior mostly unchanged from previous shifts. Pt maintained behavior control throughout the shift. Pt affect appears mostly flat. Pt spends most of the shift resting in her room, occasionally participating in unit activities and interacting lightly with peers in the dining room. Pt is not overly social with staff and peers when active on the unit, but is appropriate when engaged. Pt attended community meeting in the AM and participated lightly in group activities. Pt attended all meals and ate approx 100% of all meals.
--- NOTE | 2016-10-20 18:54 | PCM.PNPSY ---
Subjective Date of Service Oct 20, 2016 Subjective The patient reports that she is "doing good." She does endorse some muscle aches which are apparently unchanged from with risperidone. She reports feeling more alert with olanzapine. She reports that she is "talked with her and they have not decided what to do." She now states that he was not in [facility] but was on a trip to [place]. Regarding her son she stated, "he is not my son, I do not know who that was." She denies side effects other than above. Sleep: 6.5+ hours Appetite: "Good" Suicidal and homicidal ideation: Denies Auditory hallucinations/Visual hallucinations: Denies Other Psychotic Symptoms: Delusions as above Anxiety: Denies Depression: Denies Mental Status Exam Appearance: Neat/well groomed Attitude: Pleasant, Guarded Behavior: No unusual behavior Affect: Well Modulated/Appropriate Mood: Other (suspicious) Thought Process/Associations: Logical/Sequential, Goal Directed Speech Production: Normal Speech Rate: Normal Speech Articulation: Normal Thought Content: Suspicious, Other (delusions still present as exemplified by those regarding her and son) Danger to Self/Suicidal Ideati: None Danger to Others: None Delusions: Paranoid (Endorses) Hallucinations: Auditory (Denies), Visual (Denies) Consciousness: Alert Orientation: Person, Place, Date, Situation Memory: Grossly Intact Estimate Intellectual Function: Average Attention/Concentration & Cogn: Grossly Intact Insight: None Judgement: Poor Mental Health Plan Sarita is a 65-year-old, female admitted on a 72 hour involuntary hold. Police initially found the body of a man on the porch of their house. 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 He apparently of natural causes several weeks prior. She was initially held in [facility] under investigation of a homicide but upon discovering the nature of his she was transferred to [facility] for evaluation and treatment. Although the patient is still reporting delusional content, she is more engaged and pleasant and appears less delusionally focused. She now no longer believes her ex- was in [facility] and rather states he was in [place]. She still appears to believe that they will be reunited. Insight, therefore, is only minimally improved. She currently is unsure of where she will live upon discharge. She reports side effects from olanzapine have improved. [place] AXIS I Schizophrenia chronic paranoid type AXIS II Defer. AXIS III None. AXIS IV Severe. AXIS V Current global assessment of functioning equal to 30. Medications Olanzapine 10 mg at bedtime Treatments 1. The patient is admitted to the inpatient unit and will be provided a safe and secure environment. 2. The patient is denying current active suicidality and is not in need of a one-to-one at this time. He is agreeing to notify us should he have any acute suicidal or homicidal thoughts. 3. The patient is encouraged to participate with group and milieu activities. 4. The patient will be seen by the treatment team on a daily basis to assess symptoms, side effects and response to treatment. 5. Continue olanzapine 10 mg at bedtime with a 10 mg IM backup. Consider increasing to 15 mg if no further improvement in the next few days. 6. The patient received a 14 day commitment order on 10/10/2016. 7. Estimated length of stay 14+ days. Petition for 90 day more restrictive order was filed 10/20/2016. Terence Brown MD Oct 20, 2016 18:54
--- NOTE | 2016-10-20 19:22 | NUR ---
NURSING NOTE [id number] Orientation= x3 (time, date, place -- stated: "I'm at [facility], [place], [place]. My daughter lives a few blocks down from here." Not oriented to situation) Mood= "Good! I didn't spill anything or drop anything on the floor" *smiles* Affect= flat, distracted Behavior= mostly isolating to her room, reading her book. She comes out to the dining room off and on to grab refreshments or watch TV. 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
--- NOTE | 2016-10-21 04:18 | NUR ---
Nursing Note Noc Shift Pt asleep upon arrival to unit. Sleep time noted 0 and has had 7 hr uninterrupted sleep. No PRN's given and Pt currently asleep, Q15 min safety checks done per protocol, No distress noted, [facility] sleep, safety, behavior
--- NOTE | 2016-10-21 12:57 | NUR ---
Nursing Day Shift- S/O- Pt. had slept well again per report. She was awake for breakfast and morning group. She continues to appear contained and calm. She did color in the DR for several hours. A- Delusional with very limited insight. Resistant to medications. P- Cont. BHTP.
--- NOTE | 2016-10-21 15:07 | NUR ---
Meat And Poultry Inspector/Counselor: S: "I'm good,I'm just grooming. I take a shower when I feel I need one, around every 3 days." O: Patient slept 8.5+ hours last night as per staff. She denies S/I and H/I. She denies auditory and visual hallucinations. Depression is 0/10 and anxiety is 0/10. A: Patient is cooperative, unkempt, guarded, distractible, brighter affect, suspicious, paranoid, poor insight, poor judgment. P: Follow care plan, coordinate out-patient providers.
[2016-10-21 16:53] VITALS: BP 143/96; PULSE 85; RESP 16
--- NOTE | 2016-10-21 18:08 | NUR ---
NURSING NOTE [id number] Mood: "Good! Trying to stay busy and that's what I'm doing!" *sighs* Affect: blunted Behavior: colored for a while in the dining room, mostly isolates to her room Thought processes = appears distracted w/vacant expression and poor eye contact in conversation but denies any disturbed thought processes, denies AH/VH/SI/HI. No expressed delusions this evening.
--- NOTE | 2016-10-21 18:52 | NUR ---
Observations 0700 to 1900 Pt maintained behavioral control throughout the shift. Pt affect and behavior seems mostly unchanged from previous shifts. Pt attended community activities throughout the day-- set goal to keep a stiff upper lip. Pt was active on the unit throughout the day but did not seek interaction and struggles to hold conversations with staff or peers. Pt ate 75-100% of meals and ate was observed every 15 minutes as ordered.
--- NOTE | 2016-10-21 22:08 | PCM.PNPSY ---
Subjective Date of Service Oct 21, 2016 Subjective The patient reports that she was "just grooming" herself. She reports taking a shower every 3 days as she does not want it drying out her skin. Patient reports feeling uncoordinated at times from medication. She denies side effects other than above. Sleep: 8.5+ hours, "Good" Appetite: "Good" Suicidal and homicidal ideation: Denies Auditory hallucinations/Visual hallucinations: Denies Other Psychotic Symptoms: remains guarded. Anxiety: Denies Depression: Denies Mental Status Exam Vital Signs Vital Signs Date Time Temp Pulse Resp B/P Pulse Ox O2 Delivery O2 Flow Rate FiO2 10/21/16 16:53 36.1 85 16 143/96 Appearance: Neat/well groomed Attitude: Pleasant, Guarded Behavior: No unusual behavior Affect: Well Modulated/Appropriate Mood: Other (suspicious) Thought Process/Associations: Logical/Sequential, Goal Directed Speech Production: Normal Speech Rate: Normal Speech Articulation: Normal Thought Content: Suspicious Danger to Self/Suicidal Ideati: None Danger to Others: None Delusions: Paranoid (Endorses) Hallucinations: Auditory (Denies), Visual (Denies) Consciousness: Alert Orientation: Person, Place, Date, Situation Memory: Grossly Intact Estimate Intellectual Function: Average Attention/Concentration & Cogn: Grossly Intact Insight: None Judgement: Poor Mental Health Plan Sarita is a 65-year-old, female admitted on a 72 hour involuntary hold. Police initially found the body of a man on the porch of their house. 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 He apparently of natural causes several weeks prior. She was initially held in senior living under investigation of a homicide but upon discovering the nature of his she was transferred to [facility] for evaluation and treatment. Although the patient is still reporting delusional content, she is more engaged and pleasant and appears less delusionally focused. She is fairly guarded today. She currently is unsure of where she will live upon discharge. She reports side effects from olanzapine have improved, but are still present. [place] AXIS I Schizophrenia chronic paranoid type AXIS II Defer. AXIS III None. AXIS IV Severe. AXIS V Current global assessment of functioning equal to 30. Medications Olanzapine 10 mg at bedtime Treatments 1. The patient is admitted to the inpatient unit and will be provided a safe and secure environment. 2. The patient is denying current active suicidality and is not in need of a one-to-one at this time. He is agreeing to notify us should he have any acute suicidal or homicidal thoughts. 3. The patient is encouraged to participate with group and milieu activities. 4. The patient will be seen by the treatment team on a daily basis to assess symptoms, side effects and response to treatment. 5. Continue olanzapine 10 mg at bedtime with a 10 mg IM backup. Consider increasing to 15 mg if no further improvement in the next few days. 6. The patient received a 14 day commitment order on 10/10/2016. 7. Estimated length of stay 14+ days. Petition for 90 day more restrictive order was filed 10/20/2016. Terence Brown MD Oct 21, 2016 22:08
--- NOTE | 2016-10-22 01:34 | NUR ---
Observations 1900 to 0700 Pt was out in the DR watching TV for most of the night. Pt first appeared asleep at 22:30 and was observed every 15 minutes through the night as directed.
--- NOTE | 2016-10-22 06:36 | NUR ---
Sleep Adequate sleep through the night with no noted distress or awakening per protocol checks. Total sleep over 7.5 hours.
--- NOTE | 2016-10-22 10:39 | NUR ---
Nursing Day shift- S/O- Pt. set a goal of not being sarcastic and being increasingly patient and tolerant. She expressed frustration with staff daily questions as the motivation for the goal. Pt. had slept well and was awake for breakfast. She continues to dent any mental health concerns or problems. A- Delusions continue per staff report, with very limited insight. P- Cont bHTP. Court this coming week for possible 90 day LRO.
--- NOTE | 2016-10-22 18:33 | NUR ---
Obs Dayshift Pt is attending grps, participating well. Pt spends sometime in the milieu, but mostly keeps to herself. Engages some w/ peers when she is approached but remains very superficial and keeps conversations short. Pt does spend a lot of free time in her room, sitting on the bed, mumbling to herself, cleaning/organizing, napping. Pt stated that her mood is an 8/10 - 10 being the best day ever, but stated that her goal was to try and be more patient and not be sarcastic because she is tired fo being asked the same questions ever day for the last 3 weeks. Pt wants to DC soon and get back to her house. Ok ADL's, Good meals
--- NOTE | 2016-10-22 21:01 | PCM.PNPSY ---
Subjective Date of Service Oct 22, 2016 Subjective The patient reports that she is writing a short story. She reports that she plans to publish it under a "nom de plume" as she has done before. She would not say what her pseudonym is. The patient reports feeling somewhat unsteady early in the morning from the medication but has yet to report this to staff. She was asked to find staff and inform them of the same should this recur. She denies side effects other than above. Sleep: 7.5+ hours, "Good" Appetite: "Good" Suicidal and homicidal ideation: Denies Auditory hallucinations/Visual hallucinations: Denies Other Psychotic Symptoms: remains guarded, some delusions. Anxiety: Denies Depression: Denies Mental Status Exam Appearance: Neat/well groomed Attitude: Pleasant, Guarded Behavior: No unusual behavior Affect: Well Modulated/Appropriate Mood: Other (suspicious) Thought Process/Associations: Logical/Sequential, Goal Directed Speech Production: Normal Speech Rate: Normal Speech Articulation: Normal Thought Content: Suspicious Danger to Self/Suicidal Ideati: None Danger to Others: None Delusions: Paranoid (Endorses) Hallucinations: Auditory (Denies), Visual (Denies) Consciousness: Alert Orientation: Person, Place, Date, Situation Memory: Grossly Intact Estimate Intellectual Function: Average Attention/Concentration & Cogn: Grossly Intact Insight: None Judgement: Poor Mental Health Plan Sarita is a 65-year-old, female admitted on a 72 hour involuntary hold. Police initially found the body of a man on the porch of their house. 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 He apparently of natural causes several weeks prior. She was initially held in assisted under investigation of a homicide but upon discovering the nature of his she was transferred to [facility] for evaluation and treatment. Although the patient is still reporting delusional content, she is more engaged and pleasant and appears less delusionally focused. She is still fairly guarded. She currently is unsure of where she will live upon discharge. She reports side effects from olanzapine have improved, but are still present. The patient will likely need further titration of olanzapine. [place] AXIS I Schizophrenia chronic paranoid type AXIS II Defer. AXIS III None. AXIS IV Severe. AXIS V Current global assessment of functioning equal to 30. Medications Olanzapine 10 mg at bedtime Treatments 1. The patient is admitted to the inpatient unit and will be provided a safe and secure environment. 2. The patient is denying current active suicidality and is not in need of a one-to-one at this time. She is agreeing to notify us should he have any acute suicidal or homicidal thoughts. 3. The patient is encouraged to participate with group and milieu activities. 4. The patient will be seen by the treatment team on a daily basis to assess symptoms, side effects and response to treatment. 5. Continue olanzapine 10 mg at bedtime with a 10 mg IM backup. Consider increasing to 15 mg if no further improvement in the next few days. 6. The patient received a 14 day commitment order on 10/10/2016. 7. Estimated length of stay 14+ days. Petition for 90 day more restrictive order was filed 10/20/2016. Terence Brown MD Oct 22, 2016 21:01
--- NOTE | 2016-10-22 21:50 | NUR ---
NURSING NOTE [id number] Mood: "I did my walk and I read my book, so yeah, I'm doing good" Affect: guarded, blunted Behavior: watching TV off and on, selectively social w/a few of her peers. Spent some time outside on the patio. Isolating to her room in later part of shift. Thought processes: pt. denies AH/VH/SI/HI. Stares blankly at this filing writer when asked any questions r/t mental health. PRNs Ibuprofen for 6/10 neck and back pain @ 15:38-- pt. reported relief upon reassessment
--- NOTE | 2016-10-23 06:14 | NUR ---
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
[2016-10-23 10:21] VITALS: BP 150/79; PULSE 90; RESP 16
--- NOTE | 2016-10-23 13:02 | PCM.PNPSY ---
Subjective Date of Service Oct 23, 2016 Subjective I spent 30 minutes both reviewing treatment plan and providing supportive/ educational psychotherapy. I spent more than 50% of the time counseling the patient. I reviewed the treatment plan with the patient and discussed options available including the potential risks, benefits and side effects. Sarita reports no difficulty with thought organization, mood stability, or paranoia. She remains actively psychotic with multiple grandiose delusions. She is quite intelligent and can maintain a false sense of thought organization for 3-5 minutes. However if you ask her any details about events leading to admission or what will happen afterwards her delusional frame of mind becomes quite apparent. Staff reports that she has been active and participating well in one-to-one unit and group activities. She slept 7.5 hours . She denies medication side effects. Patient was not able to identify her medications or what they were used to treat. She did not appear to understand the need for medications by the questions she asked during our discussion. Mental Status Exam Vital Signs Vital Signs Date Time Temp Pulse Resp B/P Pulse Ox O2 Delivery O2 Flow Rate FiO2 10/23/16 10:21 36.7 90 16 150/79 Appearance: Neat/well groomed Attitude: Pleasant, Guarded Behavior: No unusual behavior Affect: Well Modulated/Appropriate Mood: Other (suspicious) Thought Process/Associations: Logical/Sequential, Goal Directed Speech Production: Normal Speech Rate: Normal Speech Articulation: Normal Thought Content: Suspicious Danger to Self/Suicidal Ideati: None Danger to Others: None Delusions: Paranoid (Endorses) Hallucinations: Auditory (Denies), Visual (Denies) Consciousness: Alert Orientation: Person, Place, Date, Situation Memory: Grossly Intact Estimate Intellectual Function: Average Attention/Concentration & Cogn: Grossly Intact Insight: None Judgement: Poor Mental Health Plan Sarita is a 65-year-old, white female, admitted initially on a 72 hour involuntary treatment hold after police found the body of the client. 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 He had apparently of natural causes several weeks ago. When the police were notified they initially thought that she had killed the man And she was held in assisted. It was determined that it was natural causes and she was transferred to [facility] for evaluation and treatment. She remains completely dissociated in terms of her relationship with Mr. Layton. She believes she owns the house. She denies that she ever knew Mr. Layton. She talks in a very paranoid and persecutory way about the neighbors being not human and that the body found on her porch was an alien. She is now reluctantly taking Zyprexa 10 mg at bedtime. She remains quite psychotic with no change in her delusional system beliefs. [place] AXIS I Schizophrenia chronic paranoid type AXIS II Defer. AXIS III None. AXIS IV Severe. AXIS V Current global assessment of functioning equal to 30. Medications Olanzapine 10 mg at bedtime Treatments 1. The patient is admitted to the inpatient unit and will be provided a safe and secure environment. 2. The patient is denying current active suicidality and is not in need of a one-to-one at this time. She is agreeing to notify us should he have any acute suicidal or homicidal thoughts. 3. The patient is encouraged to participate with group and milieu activities. 4. The patient will be seen by the treatment team on a daily basis to assess symptoms, side effects and response to treatment. 5. Continue olanzapine 10 mg at bedtime with a 10 mg IM backup. Consider increasing to 15 mg if no further improvement in the next few days. 6. The patient received a 14 day commitment order on 10/10/2016. 7. Estimated length of stay 14+ days. Petition for 90 day more restrictive order was filed 10/20/2016. Matt Rabago MD Oct 23, 2016 13:02
--- NOTE | 2016-10-23 14:15 | NUR ---
Nursing Note [id number] Behavior S/O: Pt ate 100% of breakfast & lunch. Pt attends groups. She interacts pleasantly when spoken to, but d/n initiate conversation. Pt seen talking to herself. She appeared to be counting her fingers, when asked she stated, "I'm manicuring." Conversation tracking clear & organized with normal rate & rhythm. A: Pt appears to be responding to internal stimuli. P: Provide supportive environment. Monitor medications & effects.
--- NOTE | 2016-10-23 16:55 | NUR ---
Observations 0700 to 1900 Pt maintained behavioral control throughout the shift. Pt attended groups throughout the day and and is interacting positive with staff and peers. Pt is cooperative when approached and holds a lucid conversation most of the time. During 15 minutes check pt was observed multiple times in her room talking to self and air and interacting with internal stimuli. Pt touching fingers on hands over and over again with other hand. "I'm giving myself a manicure." Pt ate 75-100% of breakfast and lunch and was observed every 15 minutes as ordered.
--- NOTE | 2016-10-24 06:00 | NUR ---
nursing, nights, 11-7 s/o- has appeared to sleep after 2244 during q 15 minute assessments. a- no apparent distress. p- monitor behavior/emotional state, quality, times and amount of sleep, use and effect of medication
--- NOTE | 2016-10-24 12:13 | PCM.PNPSY ---
Subjective Date of Service Oct 24, 2016 Subjective I spent 20 minutes both reviewing treatment plan and providing supportive/ educational psychotherapy. Sarita continues to feel that she has no difficulty with thought organization, mood stability, or paranoia. Over both myself and staff note that She remains actively psychotic with multiple grandiose delusions. She is quite intelligent and can maintain a false sense of thought organization for 3-5 minutes. However if you ask her any details about events leading to admission or what will happen afterwards her delusional frame of mind becomes quite apparent. Staff reports that she has been active and participating well in one-to-one unit and group activities. She slept 7.25 hours . She denies medication side effects. Patient was not able to identify her medications or what they were used to treat. She did not appear to understand the need for medications by the questions she asked during our discussion. Mental Status Exam Appearance: Neat/well groomed Attitude: Pleasant, Guarded Behavior: No unusual behavior Affect: Well Modulated/Appropriate Mood: Other (suspicious) Thought Process/Associations: Logical/Sequential, Goal Directed Speech Production: Normal Speech Rate: Normal Speech Articulation: Normal Thought Content: Suspicious Danger to Self/Suicidal Ideati: None Danger to Others: None Delusions: Paranoid (Endorses) Hallucinations: Auditory (Denies), Visual (Denies) Consciousness: Alert Orientation: Person, Place, Date, Situation Memory: Grossly Intact Estimate Intellectual Function: Average Attention/Concentration & Cogn: Grossly Intact Insight: None Judgement: Poor Mental Health Plan Sarita is a 65-year-old, white female, admitted initially on a 72 hour involuntary treatment hold after police found the body of the client. 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 He had apparently of natural causes several weeks ago. When the police were notified they initially thought that she had killed the man And she was held in intermediate. It was determined that it was natural causes and she was transferred to [facility] for evaluation and treatment. She remains completely dissociated in terms of her relationship with Mr. Layton. She believes she owns the house. She denies that she ever knew Mr. Layton. She talks in a very paranoid and persecutory way about the neighbors being not human and that the body found on her porch was an alien. She is now reluctantly taking Zyprexa 10 mg at bedtime. She remains quite psychotic with no change in her delusional system beliefs. She has little to know insight into recent events and appears unable to process at this time. [place] AXIS I Schizophrenia chronic paranoid type AXIS II Defer. AXIS III None. AXIS IV Severe. AXIS V Current global assessment of functioning equal to 30. Medications Treatments 1. The patient is admitted to the inpatient unit and will be provided a safe and secure environment. 2. The patient is denying current active suicidality and is not in need of a one-to-one at this time. She is agreeing to notify us should he have any acute suicidal or homicidal thoughts. 3. The patient is encouraged to participate with group and milieu activities. 4. The patient will be seen by the treatment team on a daily basis to assess symptoms, side effects and response to treatment. 5. olanzapine 15 mg at bedtime with a 10 mg IM backup. 6. The patient received a 14 day commitment order on 10/10/2016. 7. Estimated length of stay 14+ days. Petition for 90 day more restrictive order was filed 10/20/2016. Matt Rabago MD Oct 24, 2016 12:13
--- NOTE | 2016-10-24 18:38 | NUR ---
Nursing: Day shift: Sarita is unchanged in her behavior and thinking. She laughed when fha underwriter attempted to assess her suicidality, anxiety and depression. When asked why she thought she was on this mental health unit, she responded with statements about ""Someone reported me ...I know his name..He looks like my son but he isn't my son...My son is ...They said the body was in my house..." Alert. Oriented to environment. A: Delusional. Lacks insight into any need to hospitalization. P: Assess for effectiveness of meds.
--- NOTE | 2016-10-24 19:57 | NUR ---
Obs Dayshift Pt is attending some groups, with minimal participation, polite, IS. Slightly engaging w/ peers or staff but only on approach. Pt is hoarding in her room. Stating that she needs help looking for housing. Engaged in one of the groups this shift, Trivia cards, laughing w/ peers and answering questions. Pt has some inappropriate laughter, and smiling, responding to IS. Ok ADL's, Good meals
[2016-10-24 20:47] VITALS: BP 150/85; PULSE 95; RESP 16
--- NOTE | 2016-10-25 02:43 | NUR ---
Observations 1900 to 0700 Pt was out in the DR watching TV for most of the night. Pt first appeared asleep at 21:30 and was observed every 15 minutes through the night as directed.
--- NOTE | 2016-10-25 05:20 | NUR ---
nursing, nights, s/o- has appeared to sleep after 2129 during q 15 minute assessments. a- no apparent distress. Expected court hearing Sunday for 90 MR. p- monitor behavior/emotional state, quality, times and amount of sleep, use and effect of medication
--- NOTE | 2016-10-25 10:04 | PCM.PNPSY ---
Subjective Date of Service Oct 25, 2016 Subjective I spent 20 minutes both reviewing treatment plan and providing supportive/ educational psychotherapy. Sarita continues to feel that she has no difficulty with thought organization, mood stability, or paranoia. She remains actively psychotic with multiple grandiose delusions. She is quite intelligent and can maintain a false sense of thought organization for 3-5 minutes. She does not understand the long term process or need for psychiatric medications. She has been taking the Zyprexa but only because she is on an involuntary order to do so. Staff reports that she has been active and participating well in one-to-one unit and group activities. She slept 7.25 hours . She denies medication side effects. Patient was not able to identify her medications or what they were used to treat. She did not appear to understand the need for medications by the questions she asked during our discussion. Current Medications Current Medications Olanzapine 15 mg HS PO Last administered on 10/24/16t 21:15; Admin Dose 15 MG; Start 10/24/16 at 21:00 Mental Status Exam Appearance: Neat/well groomed Attitude: Pleasant, Guarded Behavior: No unusual behavior Affect: Well Modulated/Appropriate Mood: Other (suspicious) Thought Process/Associations: Logical/Sequential, Goal Directed Speech Production: Normal Speech Rate: Normal Speech Articulation: Normal Thought Content: Suspicious Danger to Self/Suicidal Ideati: None Danger to Others: None Delusions: Paranoid (Endorses) Hallucinations: Auditory (Denies), Visual (Denies) Consciousness: Alert Orientation: Person, Place, Date, Situation Memory: Grossly Intact Estimate Intellectual Function: Average Attention/Concentration & Cogn: Grossly Intact Insight: None Judgement: Poor Mental Health Plan Sarita is a 65-year-old, white female, admitted initially on a 72 hour involuntary treatment hold after police found the body of the client. 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 He had apparently of natural causes several weeks ago. When the police were notified they initially thought that she had killed the man And she was held in retirement. It was determined that it was natural causes and she was transferred to [facility] for evaluation and treatment. She remains completely dissociated in terms of her relationship with Mr. Layton. She believes she owns the house. She denies that she ever knew Mr. Kinjal. She talks in a very paranoid and persecutory way about the neighbors being not human and that the body found on her porch was an alien. She is now reluctantly taking Zyprexa 10 mg at bedtime. She remains quite psychotic with no change in her delusional system beliefs. She has little to know insight into recent events and appears unable to process at this time. Her Zyprexa was increased yesterday from 10-15 mg. She is not having side effects from this change. [place] AXIS I Schizophrenia chronic paranoid type AXIS II Defer. AXIS III None. AXIS IV Severe. AXIS V Current global assessment of functioning equal to 30. Medications Treatments 1. The patient is admitted to the inpatient unit and will be provided a safe and secure environment. 2. The patient is denying current active suicidality and is not in need of a one-to-one at this time. She is agreeing to notify us should he have any acute suicidal or homicidal thoughts. 3. The patient is encouraged to participate with group and milieu activities. 4. The patient will be seen by the treatment team on a daily basis to assess symptoms, side effects and response to treatment. 5. olanzapine 15 mg at bedtime with a 10 mg IM backup. 6. The patient received a 14 day commitment order on 10/10/2016. 7. Estimated length of stay 14+ days. Petition for 90 day more restrictive order was filed 10/20/2016." Transfer to [facility] if she continues to struggle with this level of psychotic symptoms. Matt Rabago MD Oct 25, 2016 10:04
[2016-10-25 10:14] VITALS: BP 133/82; PULSE 90; RESP 18
--- NOTE | 2016-10-25 17:30 | NUR ---
NURSING NOTE [id number] Orientation= x3 Mood= "okay, good" Affect= flat, guarded Behavior= approached pt several times in her room and each time she was sitting on her bed, staring at the wall. She later sat in the DR reading a magazine and briefly spent time in the rec room. Mostly visible on fringes of milieu. Thought processes= pt. used one-word answers to answer this race and sports book writer's questions re: disturbed thought processes; no SI/HI/AH/VH/depression. Pt. not showing insight into illness and why she is here yet reports she is content here and "enjoying my walks and resting... I've also had time to do some writing" *smiles* PRNs 600 mg ibuprofen @ 17:00 for 03/19 neck and back pain, pt. reported improvement to 11/17 upon reassessment
--- NOTE | 2016-10-26 05:16 | NUR ---
nursing, nights, 11-7 s/o- has appeared to sleep after 2114 during q 15 minute assessments. a- no apparent distress. p- monitor behavior/emotional state, quality, times and amount of sleep, use and effect of medication. betty
--- NOTE | 2016-10-26 05:20 | NUR ---
Nursing Noc Pt hesitant to take HS medications r/t having court in am. Explained to patient that court is not until Sunday, patient finally took medications. Continue to monitor.
--- NOTE | 2016-10-26 06:15 | NUR ---
Observations 1900 to 0700 Pt was in her room for most of the night. Pt came out for snack and a little TV before going back to her room for the night. Pt first appeared asleep at 21:15 and was observed every 15 minutes through the night as directed.
[2016-10-26 08:59] VITALS: BP 126/86; PULSE 78; RESP 15
--- NOTE | 2016-10-26 12:54 | PCM.PNPSY ---
Subjective Date of Service Oct 26, 2016 Subjective I spent 30 minutes both reviewing treatment plan and providing supportive/ educational psychotherapy. Sarita continues to feel that she has no difficulty with thought organization, mood stability, or paranoia. She remains actively psychotic with multiple grandiose delusions: [she believes that the house she was staying in was built on top of a [place]. She Believes that she was minding the Gold. She believes that people were coming into the house to steal the Gold. 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 She presents as a quite intelligent woman and can maintain a false sense of thought organization for 3-5 minutes. She does not understand the halfway process or need for psychiatric medications. She has been taking the Zyprexa but only because she is on an involuntary order to do so. Staff reports that she has been active and participating well in one-to-one unit and group activities. She slept 8.5 hours . She complained of medication side effects to Zyprexa when it was increased from 10 to15 mg saying that for an hour after taking the medication she feels dizzy and hot. Patient was not able to identify her medications or what they were used to treat. She did not appear to understand the need for medications by the questions she asked during our discussion. Current Medications Current Medications Olanzapine 15 mg HS PO Last administered on 10/25/16t 20:48; Admin Dose 15 MG; Start 10/24/16 at 21:00 Mental Status Exam Vital Signs Vital Signs Date Time Temp Pulse Resp B/P Pulse Ox O2 Delivery O2 Flow Rate FiO2 10/26/16 08:59 36.0 78 15 126/86 Appearance: Neat/well groomed Attitude: Pleasant, Guarded Behavior: No unusual behavior Affect: Well Modulated/Appropriate Mood: Other (suspicious) Thought Process/Associations: Logical/Sequential, Goal Directed Speech Production: Normal Speech Rate: Normal Speech Articulation: Normal Thought Content: Suspicious Danger to Self/Suicidal Ideati: None Danger to Others: None Delusions: Paranoid (Endorses) Hallucinations: Auditory (Denies), Visual (Denies) Consciousness: Alert Orientation: Person, Place, Date, Situation Memory: Grossly Intact Estimate Intellectual Function: Average Attention/Concentration & Cogn: Grossly Intact Insight: None Judgement: Poor Mental Health Plan Sarita is a 65-year-old, white female, admitted initially on a 72 hour involuntary treatment hold after police found the body of the client. 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 He had apparently of natural causes several weeks ago. When the police were notified they initially thought that she had killed the man And she was [facility]. It was determined that it was natural causes and she was transferred to [facility] for evaluation and treatment. She remains completely dissociated in terms of her relationship with Mr. Layton. She believes she owns the house. She denies that she ever knew Mr. Layton. She talks in a very paranoid and persecutory way about the neighbors being not human and that the body found on her porch was an alien. She is now reluctantly taking Zyprexa 10 mg at bedtime. She remains quite psychotic with no change in her delusional system beliefs. She has little to know insight into recent events and appears unable to process at this time. Her Zyprexa was increased 48 hours ago from 10to 15 mg. She is now complaining of side effects from this change. [place] AXIS I Schizophrenia chronic paranoid type AXIS II Defer. AXIS III None. AXIS IV Severe. AXIS V Current global assessment of functioning equal to 30. Medications Treatments 1. The patient is admitted to the inpatient unit and will be provided a safe and secure environment. 2. The patient is encouraged to participate with group and milieu activities. 4. The patient will be seen by the treatment team on a daily basis to assess symptoms, side effects and response to treatment. 5. Decrease olanzapine 15 mg at bedtime to 10 mg with a 10 mg IM backup. 6. The patient received a 14 day commitment order on 10/10/2016. 7. Petition for 90 day more restrictive order was filed 10/20/2016. Transfer to [facility] if she continues to struggle with this level of psychotic symptoms. Matt Rabago MD Oct 26, 2016 12:54
--- NOTE | 2016-10-26 17:58 | NUR ---
[id number]. nurs. S: "I don't think that I will be allowed to go back home.. I don't think I will have any control about what will happen to me" O: Pt reports that she is comfortable on unit but her preference would be to return home, pt does seem to have some understanding that the prev residential situation she was in will be unavailable to her. A: Pt verbalizing some continuing delusional ideation about previous neighbours, and that her son was really neighbour pretending to be her son. Pt reporting that she has list of phone numbers but unable to find them, restarting list to call medicaid etc. Pt out on unit to participate in group briefly has worked on craft projects previously and concerned that they are well stored. Pt calm, somewhat guarded, poor insight re. concerns re prev. coping and resulting loss of independent control. P:CNCP
--- NOTE | 2016-10-26 18:18 | NUR ---
[facility] Day Shift Pt affect and behavior mostly unchanged from previous shifts. Pt maintained behavior control throughout the shift. Pt affect appears mostly flat. Pt spends most of the shift resting in her room, occasionally participating in unit activities and interacting lightly with peers in the dining room. Pt is not overly social with staff and peers when active on the unit, but is appropriate when engaged. Pt attended community meeting in the AM and participated lightly in group activities. Pt attended all meals and ate approx 100% of all meals.
--- NOTE | 2016-10-26 18:59 | NUR ---
Photography Manager/Counselor: S/O: Patient slept 8.5 hours last night as per staff. She denies S/I and H/I. She denies auditory and visual hallucinations. Depression is 0/10 and anxiety is 0/10. A: Patient is cooperative, unkempt, guarded, flat affect, suspicious, paranoid, poor insight, poor judgment. P: Follow care plan, coordinate out-patient providers.
--- NOTE | 2016-10-27 05:48 | NUR ---
Nursing Noc Pt withdrawn and paranoid, seen in common area but not interacting with others. First note to be first asleep at 2130 and remained asleep throughout the night. Pt refusing medications r/t scheduled court hearing today.
[2016-10-27 08:10] VITALS: BP 127/89; PULSE 84; RESP 16
--- NOTE | 2016-10-27 10:47 | PCM.PNPSY ---
Subjective Date of Service Oct 27, 2016 Subjective I spent 30 minutes both reviewing treatment plan and providing supportive/ educational psychotherapy. Sarita continues to feel that she has no difficulty with thought organization, mood stability, or paranoia. She remains actively psychotic with multiple grandiose delusions: Staff reports that she has been active and participating well in one-to-one unit and group activities. She slept over 8 hours . She denied medication side effects to Zyprexa. Mental Status Exam Appearance: Neat/well groomed Attitude: Pleasant, Guarded Behavior: No unusual behavior Affect: Well Modulated/Appropriate Mood: Other (suspicious) Thought Process/Associations: Logical/Sequential, Goal Directed Speech Production: Normal Speech Rate: Normal Speech Articulation: Normal Thought Content: Suspicious Danger to Self/Suicidal Ideati: None Danger to Others: None Delusions: Paranoid (Endorses) Hallucinations: Auditory (Denies), Visual (Denies) Consciousness: Alert Orientation: Person, Place, Date, Situation Memory: Grossly Intact Estimate Intellectual Function: Average Attention/Concentration & Cogn: Grossly Intact Insight: None Judgement: Poor Mental Health Plan Sarita is a 65-year-old, white female, admitted initially on a 72 hour involuntary treatment hold after police found the body of the client. 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 He had apparently of natural causes several weeks ago. When the police were notified they initially thought that she had killed the man And she was [facility]. It was determined that it was natural causes and she was transferred to [facility] for evaluation and treatment. She remains completely dissociated in terms of her relationship with Mr. Layton. She believes she owns the house. She denies that she ever knew Mr. Layton. She talks in a very paranoid and persecutory way about the neighbors being not human and that the body found on her porch was an alien. She is now reluctantly taking Zyprexa 10 mg at bedtime. She remains quite psychotic with no change in her delusional system beliefs. She has little to know insight into recent events and appears unable to process at this time. Sarita's court was postponed per her traffic law attorney's request until next Sunday [place] AXIS I Schizophrenia chronic paranoid type AXIS II Defer. AXIS III None. AXIS IV Severe. AXIS V Current global assessment of functioning equal to 35. Medications Treatments 1. The patient is admitted to the inpatient unit and will be provided a safe and secure environment. 2. The patient is encouraged to participate with group and milieu activities. 4. The patient will be seen by the treatment team on a daily basis to assess symptoms, side effects and response to treatment. 5 olanzapine 10mg at bedtime 6. The patient received a 14 day commitment order on 10/10/2016. 7. Petition for 90 day more restrictive order was filed 10/20/2016. This was postponed or continued to Transfer to [facility] if she continues to struggle with this level of psychotic symptoms. Matt Rabago MD Oct 27, 2016 10:47
--- NOTE | 2016-10-27 17:40 | NUR ---
Nursing Dayshift: S: "I don't get any meds until bedtime." O: Patient relating having no AM meds. Had signed not to take meds [address] which was this morning. Case continued to Sunday the . Has been out on the unit most of the shift. Eating well at meals. Pleasant on approach. A: Calm. Cooperative. P: CPOC. Monitor mood and behavior.
--- NOTE | 2016-10-27 18:28 | NUR ---
[facility] Day Shift Pt affect and behavior mostly unchanged from previous shifts. Pt maintained behavior control throughout the shift. Pt affect appears mostly flat. Pt spends most of the shift resting in her room, occasionally participating in unit activities and interacting lightly with peers in the dining room. Pt is not overly social with staff and peers when active on the unit, but is appropriate when engaged. Pt attended all meals and ate approx 100% of all meals.
--- NOTE | 2016-10-27 18:46 | NUR ---
Back Order Clerk/Counselor: S/O: Patient slept 7 hours last night as per staff. She denies S/I and H/I. She denies auditory and visual hallucinations. Depression is 0/10 and anxiety is 0/10. A: Patient is cooperative, pleasant, guarded, flat affect, suspicious, paranoid, no insight, poor judgment. P: Follow care plan, coordinate out-patient providers.
--- NOTE | 2016-10-28 05:17 | NUR ---
Nursing Note 7pm to 7am Pt pleasant, calm and cooperative, remained in room during movie time stating " I am writing a story about my vacation. Maybe my mother will read it and remember. Pt stated mother is alive. Uncertain if mother is still alive, if this is part of her delusional system or if she is confused. Pt went to bed at approx 2315 and slept the duration of the shift with no interruptions.
[2016-10-28 09:00] VITALS: BP 121/86; PULSE 79; RESP 15
--- NOTE | 2016-10-28 11:01 | PCM.PNPSY ---
Subjective Date of Service Oct 28, 2016 Subjective I spent 20 minutes both reviewing treatment plan and providing supportive/ educational psychotherapy. Sarita continues to feel that she has no difficulty with thought organization, mood stability, or paranoia. She remains actively psychotic with multiple grandiose delusions. I attempted to confront her on some of the delusional thought today and was only successful and making K irritable. At this point she is not capable of processing recent erratic ayevents Staff reports that she has been active and participating well in one-to-one unit and group activities. She slept over 8 hours . She denied medication side effects to Zyprexa. Current Medications Current Medications Olanzapine 10 mg HS PO Last administered on 10/27/16t 20:24; Admin Dose 10 MG; Start 10/26/16 at 21:00 Mental Status Exam Appearance: Neat/well groomed Attitude: Pleasant, Guarded Behavior: No unusual behavior Affect: Well Modulated/Appropriate Mood: Other (suspicious) Thought Process/Associations: Logical/Sequential, Goal Directed Speech Production: Normal Speech Rate: Normal Speech Articulation: Normal Thought Content: Suspicious Danger to Self/Suicidal Ideati: None Danger to Others: None Delusions: Paranoid (Endorses) Hallucinations: Auditory (Denies), Visual (Denies) Consciousness: Alert Orientation: Person, Place, Date, Situation Memory: Grossly Intact Estimate Intellectual Function: Average Attention/Concentration & Cogn: Grossly Intact Insight: None Judgement: Poor Mental Health Plan Sarita is a 65-year-old, white female, admitted initially on a 72 hour involuntary treatment hold after police found the body of the client. 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 He had apparently of natural causes several weeks ago. When the police were notified they initially thought that she had killed the man And she was held in group home. It was determined that it was natural causes and she was transferred to [facility] for evaluation and treatment. She remains completely dissociated in terms of her relationship with Mr. Layton. She believes she owns the house. She denies that she ever knew Mr. Layton. She talks in a very paranoid and persecutory way about the neighbors being not human and that the body found on her porch was an alien. She is now reluctantly taking Zyprexa 10 mg at bedtime. She remains quite psychotic with no change in her delusional system beliefs. She has little to know insight into recent events and appears unable to process at this time. Sarita's court was postponed per her stockkeeper's request until next Sunday [place] AXIS I Schizophrenia chronic paranoid type AXIS II Defer. AXIS III None. AXIS IV Severe. AXIS V Current global assessment of functioning equal to 35. Medications Treatments 1. The patient is admitted to the inpatient unit and will be provided a safe and secure environment. 2. The patient is encouraged to participate with group and milieu activities. 4. The patient will be seen by the treatment team on a daily basis to assess symptoms, side effects and response to treatment. 5 olanzapine 10mg at bedtime 6. The patient received a 14 day commitment order on 10/10/2016. 7. Petition for 90 day more restrictive order was filed 10/20/2016. This was postponed or continued to Transfer to [facility] if she continues to struggle with this level of psychotic symptoms. Matt Rabago MD Oct 28, 2016 11:01
--- NOTE | 2016-10-28 13:32 | NUR ---
Nursing Dayshift: S: "The rain is good. The trees need it because they are going to be blooming soon." O: Patient describing her positive attitude about the rain. Has been out of her room for meals and group activities. Pleasant on approach. Eating well at meals. Attending unit activities. Denies anxiety and depression "I'm a 9 today!" Also denies harmful thoughts and hallucinations. A: Calm. Cooperative. Pleasant. P: CPOC. Monitor mood and behavior.
--- NOTE | 2016-10-28 17:58 | NUR ---
Observations [id number] Pt was asleep upon start of shift. She was very quite, not socializing much with peers but pleasant upon interaction. Pt spent much of her time in her room and in dining room coloring. Pt appears to continue to be washing her clothes in her bathroom sink, laying them out on her window sill to dry. Pt has been offered to utilize washer and dryer, but has declined. She spent time writing, reading and coloring. Pt attended group and all meals eating 100%. She was observed every 15 minutes of shift as directed.
--- NOTE | 2016-10-29 05:10 | NUR ---
Nursing 7pm to 7am Pt received at start of shift in day room, watching tv with staff, pleasant and engaging, affect appeared bright and responded to proposal manager writer with a smile. Pt went to bed at 2200. Pt denied back pain this evening. No prn medications given this shift. Pt slept through the night with uninterrupted sleep.
--- NOTE | 2016-10-29 11:24 | PCM.PNPSY ---
Subjective Date of Service Oct 29, 2016 Subjective I spent 30 minutes both reviewing treatment plan and providing supportive/ educational psychotherapy. Sarita continues to feel that she has no difficulty with thought organization, mood stability, or paranoia. She remains actively psychotic with grandiose and persecutory delusions. I did not confront her delusional thought today and was able to maintain a therapeutic alliance. At this point she is not capable of processing recent events Staff reports that she has been active and participating well in one-to-one unit and group activities. She slept over 8 hours . She denied medication side effects to Zyprexa. Mental Status Exam Appearance: Neat/well groomed Attitude: Pleasant, Guarded Behavior: No unusual behavior Affect: Well Modulated/Appropriate Mood: Other (suspicious) Thought Process/Associations: Logical/Sequential, Goal Directed Speech Production: Normal Speech Rate: Normal Speech Articulation: Normal Thought Content: Suspicious Danger to Self/Suicidal Ideati: None Danger to Others: None Delusions: Paranoid (Endorses), Grandiose (Endorses) Hallucinations: Visual Consciousness: Alert Orientation: Person, Place, Date, Situation Memory: Grossly Intact Estimate Intellectual Function: Average Attention/Concentration & Cogn: Grossly Intact Insight: None Judgement: Poor Mental Health Plan Sarita is a 65-year-old, white female, admitted initially on a 72 hour involuntary treatment hold after police found the body of the client. 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 He had apparently of natural causes several weeks ago. When the police were notified they initially thought that she had killed the man And she was held in [facility] living. It was determined that it was natural causes and she was transferred to [facility] for evaluation and treatment. She remains completely dissociated in terms of her relationship with Mr. Layton. She believes she owns the house. She denies that she ever knew Mr. Layton. She talks in a very paranoid and persecutory way about the neighbors being not human and that the body found on her porch was an alien. She is now reluctantly taking Zyprexa 10 mg at bedtime. She remains psychotic with no change in her delusional system beliefs. She has little to know insight into recent events and appears unable to process at this time. Sarita's court was postponed per her corporate associate attorney's request until next Sunday [place] AXIS I Schizophrenia chronic paranoid type AXIS II Defer. AXIS III None. AXIS IV Severe. AXIS V Current global assessment of functioning equal to 35. Medications Treatments 1. The patient is admitted to the inpatient unit and will be provided a safe and secure environment. 2. The patient is encouraged to participate with group and milieu activities. 4. The patient will be seen by the treatment team on a daily basis to assess symptoms, side effects and response to treatment. 5 olanzapine 10mg at bedtime 6. The patient received a 14 day commitment order on 10/10/2016. 7. Petition for 90 day more restrictive order was filed 10/20/2016. This was postponed or continued to Transfer to [facility] if she continues to struggle with this level of psychotic symptoms. Matt Rabago MD Oct 29, 2016 11:23
--- NOTE | 2016-10-29 17:29 | NUR ---
Nursing Dayshift: S: "That was a good burger. They make good food here." O: Patient pleasant and cheerful on approach. Quiet otherwise. Coloring in the dining room this afternoon. Watched a movie in the group room earlier in the day. States she is having a good day today. Good appetite at meals. A: Quiet. Approachable. Appropriate. P: CPOC. Monitor mood and behavior.
--- NOTE | 2016-10-29 18:30 | NUR ---
Observations [id number] Pt was asleep upon start of shift. She mentioned that she's still not sure as to why she is here. Pt said she has been bored, and is trying to keep herself busy. She continues to color, write stories, and watched a movie in the afternoon. Pt is not social with peers, but appropriate when approached. She attended all meals, eating 100%. Goal was to continue to stay busy. Pt was observed every 15 minutes of shift as directed.
--- NOTE | 2016-10-30 05:29 | NUR ---
Nursing [facility] 7p-7a Pt continues much the same. She presents as bright and pleasant. Visible on the unit with appropriate interaction with both peers and staff. Delusional thought content still present. Took scheduled HS medication along with prn Motrin 800 mg po for pain. Motrin appeared effective pt able to fall asleep and remain asleep with no further awakening or distress noted per protocol checks. Total sleep over 6 hours. Addendum: 11/07/16 at 0653 by BLANCA DE LEON RN Nursing [facility] 7p-7a Pt continues much the same. She presents as bright and pleasant. Visible on the unit with appropriate interaction with both peers and staff. Delusional thought content still present. Took scheduled HS medication. Pt able to fall asleep and remain asleep with no further awakening or distress noted per protocol checks. Total sleep over 7.5 hours
[2016-10-30 09:00] VITALS: BP 126/90; PULSE 93; RESP 16
--- NOTE | 2016-10-30 14:32 | PCM.PNPSY ---
Subjective Date of Service Oct 30, 2016 Subjective The patient reports that she is doing well. Although she still reports that her neighbors told her that the body on the porch was female; however, she now refers to it as male and that she is unsure of how it got there. When asked about whether her son could help her she stated she was unsure but she did not report that he was an impostor. She stated that she was unsure where she would be living. She reported her mood as" 9 out of 10 good." The patient reported mild sedation but no other side effects. Sleep: 7+ hours, "Good" Appetite: "Okay" Suicidal and homicidal ideation: Denies Auditory hallucinations/Visual hallucinations: Denies Other Psychotic Symptoms: As above Anxiety: Denies Depression: Denies Mental Status Exam Vital Signs Vital Signs Date Time Temp Pulse Resp B/P Pulse Ox O2 Delivery O2 Flow Rate FiO2 10/30/16 09:00 35.8 93 16 126/90 Appearance: Neat/well groomed Attitude: Pleasant, Cooperative, Guarded (less) Behavior: No unusual behavior Affect: Well Modulated/Appropriate Mood: Euthymic Thought Process/Associations: Logical/Sequential, Goal Directed Speech Production: Normal Speech Rate: Normal Speech Articulation: Normal Thought Content: Suspicious (less so) Danger to Self/Suicidal Ideati: None Danger to Others: None Delusions: Paranoid (Endorses but improved) Hallucinations: Auditory (Denies), Visual (Denies) Consciousness: Alert Orientation: Person, Place, Date, Situation Memory: Grossly Intact Estimate Intellectual Function: Average Attention/Concentration & Cogn: Grossly Intact Insight: Limited Judgement: Poor Mental Health Plan Sarita is a 65-year-old, female admitted on a 72 hour involuntary hold. Police initially found the body of a man on the porch of their house. 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 He apparently of natural causes several weeks prior. She was initially held in senior care under investigation of a homicide but upon discovering the nature of his she was transferred to [facility] for evaluation and treatment. Although the patient is still reporting delusional content, it appears to be in the abstract. She appears less hostile or paranoid regarding family. She is more open to receiving assistance but still reports no need for mental health services. She reports side effects from olanzapine have improved, but are still present, but does not appear sedated or untowardly affected. The patient will likely need further slow titration of olanzapine. [place] AXIS I Schizophrenia chronic paranoid type AXIS II Defer. AXIS III None. AXIS IV Severe. AXIS V Current global assessment of functioning equal to 35. Medications Olanzapine 10 mg at bedtime Treatments 1. The patient is admitted to the inpatient unit and will be provided a safe and secure environment. 2. The patient is denying current active suicidality and is not in need of a one-to-one at this time. She is agreeing to notify us should he have any acute suicidal or homicidal thoughts. 3. The patient is encouraged to participate with group and milieu activities. 4. The patient will be seen by the treatment team on a daily basis to assess symptoms, side effects and response to treatment. 5. If the patient makes no further improvement will increase olanzapine to 15 mg at bedtime. 6. The patient received a 14 day commitment order on 10/10/2016. 7. Estimated length of stay 14+ days. Petition for 90 day more restrictive order was filed 10/20/2016.This was postponed or continued to . Likely plan to transfer to [facility] if 90 day order received given events surrounding initial commitment and persistent lack of insight. Terence Brown MD Oct 30, 2016 14:32
--- NOTE | 2016-10-30 17:29 | NUR ---
Observations 0900 to 1730 Pt affect and mood remained the same as previous shifts. Pt speech and eye contact was good. Pt attended group and unit activities. Pt attended community meeting and set a daily goal. Pt was social with staff and select peers when approached. Pt attended meals in D.R. and ate 100% of her meals. Pt maintained behavior throughout the shift. Pt was in her room reading and looking at paperwork for a majority of the shift. Pt watched TV with peers and was laughing really loud on occasion. Pt was polite, pleasant and cooperative. Pt was observed every 15 minutes throughout the shift as ordered.
--- NOTE | 2016-10-30 17:42 | NUR ---
Nursing Dayshift: S: "I ate too much at breakfast." O: Patient relating having a good breakfast though stating eating more than needed. Has been pleasant on approach. Good appetite. Watching TV with peers. Has attended group activities. Denies anxiety, depression, harmful thoughts, and hallucinations. A: Quiet. Calm. P: CPOC. Monitor mood and behavior.
--- NOTE | 2016-10-30 17:55 | NUR ---
Cook House Supervisor/Counselor: S/O: Patient slept 7 hours last night as per staff. She denies S/I and H/I. She denies auditory and visual hallucinations. Depression is 0/10 and anxiety is 0/10. Patient stated that she is not mentally ill and should not even still be here. A: Patient is cooperative, pleasant, guarded, flat affect, suspicious, paranoid, no insight, poor judgment. P: Follow care plan, coordinate out-patient providers.
--- NOTE | 2016-10-31 06:28 | NUR ---
Nursing Noc 7p-7a Pt continues much the same. She presents as bright and pleasant. Visible on the unit with appropriate interaction with both peers and staff. Delusional thought content still present. She watched part of a movie before retiring to bed. She took her scheduled medication and had no complaints this evening. No middle of the night awakening or distress noted per protocol checks. Total sleep over 9 hours.
[2016-10-31 10:22] VITALS: BP 151/84; PULSE 98; RESP 16
--- NOTE | 2016-10-31 13:07 | PCM.PNPSY ---
Subjective Date of Service Oct 31, 2016 Subjective The patient reports that she is "doing fine" and that her mood is "excellent, 10 /10." She is still not sure where she will live and has no options that she's aware of. She does not believe that she can stay with her children. She reported that the person who visits her is not her son,but a neighbor (same person who has been bringing groceries). 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 The neighbors are families from other countries and live in sheds on their properties." She reports side effect of Zyprexa "going to my spleen" and going to her spine. Sleep: 8.5+ hours, "Good" Appetite: "I like to eat" Suicidal and homicidal ideation: Denies Auditory hallucinations/Visual hallucinations: Denies Other Psychotic Symptoms: As above Anxiety: Denies Depression: Denies Mental Status Exam Vital Signs Vital Signs Date Time Temp Pulse Resp B/P Pulse Ox O2 Delivery O2 Flow Rate FiO2 10/31/16 10:22 35.8 98 16 151/84 Appearance: Neat/well groomed Attitude: Pleasant, Cooperative, Guarded (less) Behavior: No unusual behavior Affect: Well Modulated/Appropriate Mood: Euthymic Thought Process/Associations: Logical/Sequential, Goal Directed Speech Production: Normal Speech Rate: Normal Speech Articulation: Normal Thought Content: Suspicious (less so) Danger to Self/Suicidal Ideati: None Danger to Others: None Delusions: Paranoid (Endorses but improved) Hallucinations: Auditory (Denies), Visual (Denies) Consciousness: Alert Orientation: Person, Place, Date, Situation Memory: Grossly Intact Estimate Intellectual Function: Average Attention/Concentration & Cogn: Grossly Intact Insight: Limited Judgement: Poor Mental Health Plan Sarita is a 65-year-old, female admitted on a 72 hour involuntary hold. Police initially found the body of a man on the porch of their house. 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 He apparently of natural causes several weeks prior. She was initially held in assisted under investigation of a homicide but upon discovering the nature of his she was transferred to [facility] for evaluation and treatment. Although the patient is still reporting delusional content, it appears to be in the abstract. She appears less hostile or paranoid regarding family. She is more open to receiving assistance but still reports no need for mental health services. She reports side effects from olanzapine have improved, but are still present, but does not appear sedated or untowardly affected and her reports appear to be delusionally based. The patient will likely need further slow titration of olanzapine. [place] AXIS I Schizophrenia chronic paranoid type AXIS II Defer. AXIS III None. AXIS IV Severe. AXIS V Current global assessment of functioning equal to 35. Medications Olanzapine 10 mg at bedtime Treatments 1. The patient is admitted to the inpatient unit and will be provided a safe and secure environment. 2. The patient is denying current active suicidality and is not in need of a one-to-one at this time. She is agreeing to notify us should he have any acute suicidal or homicidal thoughts. 3. The patient is encouraged to participate with group and milieu activities. 4. The patient will be seen by the treatment team on a daily basis to assess symptoms, side effects and response to treatment. 5. If the patient makes no further improvement will increase olanzapine to 15 mg at bedtime, she has declined medications for court and if further detained will increase dose. 6. The patient received a 14 day commitment order on 10/10/2016. 7. Estimated length of stay 14+ days. Petition for 90 day more restrictive order was filed 10/20/2016.This was postponed or continued to . Likely plan to transfer to [facility] if 90 day order received given events surrounding initial commitment and persistent lack of insight. Terence Brown MD Oct 31, 2016 13:07
--- NOTE | 2016-10-31 14:02 | NUR ---
Nursing Note [id number] Behavior S/O: Pt has a good appetite. B/P slightly elevated at 151/84. She attended community meeting this morning. She has been out in the milieu briefly, but spends most of her time in her room. Pt pleasant & cooperative upon approach. Pt washes her clothing by hand & rarely takes a shower, but washes her body with a washcloth. 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 The story is detailed & very elaborate. Pt states she doesn't have time to finish it while she is here. Pt continued in court today. She has opted not to take medications prior to court. Pt con't to advocate that she d/n have a mental illness & there is nothing wrong with her. A: Pt has no insight into illness. P: Provide supportive environment. Monitor medications & effects.
--- NOTE | 2016-10-31 16:03 | NUR ---
Resource Coordinator/Counselor: S: "I'm not sure where I'm going to stay when I leave here." O: Patient slept 8.5+ hours last night as per staff. She denies S/I and H/I. She denies auditory and visual hallucinations. Depression is 0/10 and anxiety is 0/10. When the psychiatrist asked patient if her son brought her grocery when she lived in her house. Patient stated, "the person who brought me grocery is my neighbor, not my son. The state gave me that property 23 years ago. 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 The people that live there are form other countries. Will the medicine you're giving me shut my mouth for the rest of my life." A: Patient is cooperative, pleasant, guarded, flat affect, suspicious, paranoid, no insight, poor judgment. P: Follow care plan, coordinate out-patient providers.
--- NOTE | 2016-10-31 18:53 | NUR ---
Obs Dayshift Pt joined in most groups, with minimal participation. Pt is still responding to IS, but much less obvious and mostly in her room. Pt is polite w/ staff and peers, little engaging. Ok ADL's, Good meals
--- NOTE | 2016-11-01 01:00 | NUR ---
Observations 1900 to 0700 Pt was in her room for most of the night. Pt came out for snack and a little TV before going back to her room for the night as usual. Pt first appeared asleep at 21:45 and was observed every 15 minutes through the night as directed.
--- NOTE | 2016-11-01 05:01 | NUR ---
Sleep 11p-7a Adequate sleep through the night with no noted distress or awakening per protocol checks. Total sleep 8+ hours.
[2016-11-01 12:14] VITALS: BP 134/81; PULSE 83; RESP 15
--- NOTE | 2016-11-01 14:13 | NUR ---
Nursing Note [id number] Behavior S/O: Pt at court this morning. Pt silent during court. Pt put on 90 MRO. Pt quiet & pleasant. Little interaction with staff & no known interaction with peers. Superficial interactions only. Pt out in milieu during meals, getting snacks & drinks. Able to make needs known. A: Pt isolative & has little interactions on unit. P: Provide supportive environment. Monitor medications & effects.
--- NOTE | 2016-11-01 14:29 | PCM.PNPSY ---
Subjective Date of Service Nov 01, 2016 Subjective The patient had 90 day MR hearing today and received order. Patient's history and mental health symptoms reported. Patient stated that she disagreed with having a long history of mental health problems as this was her first treatment. We discussed family report of many years of symptoms but no professional verification. Patient stated she would prefer to not change medication. She agreed as the alternative was to change medications or proceed with referral to [facility]. If patient makes sufficient progress, could potentially go to [facility]. Patient states would need transportation as the neighbors took parts off of her car. Informed patient may need to refer to [facility] for outpatient treatment as she is stating today she would take medications in the community rather than go to [facility]. No clear side effects reported, "they make me feel strange at times." Sleep: 9.5+ hours, "Good" Appetite: "Fine" Suicidal and homicidal ideation: Denies Auditory hallucinations/Visual hallucinations: Denies Other Psychotic Symptoms: Continues as previously documented. Anxiety: Denies Depression: Denies Mental Status Exam Vital Signs Vital Signs Date Time Temp Pulse Resp B/P Pulse Ox O2 Delivery O2 Flow Rate FiO2 11/01/16 12:14 36.1 83 15 134/81 Appearance: Neat/well groomed Attitude: Pleasant, Cooperative, Guarded Behavior: No unusual behavior Affect: Well Modulated/Appropriate Mood: Euthymic Thought Process/Associations: Logical/Sequential, Goal Directed Speech Production: Normal Speech Rate: Normal Speech Articulation: Normal Thought Content: Suspicious (less so) Danger to Self/Suicidal Ideati: None Danger to Others: None Delusions: Paranoid (Endorses but improved) Hallucinations: Auditory (Denies), Visual (Denies) Consciousness: Alert Orientation: Person, Place, Date, Situation Memory: Grossly Intact Estimate Intellectual Function: Average Attention/Concentration & Cogn: Grossly Intact Insight: Limited Judgement: Poor Mental Health Plan Sarita is a 65-year-old, female admitted on a 72 hour involuntary hold. Police initially found the body of a man on the porch of their house. 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 He apparently of natural causes several weeks prior. [facility] of a homicide but upon discovering the nature of his she was transferred to [facility] for evaluation and treatment. Although the patient is still reporting delusional content, it appears to be in the abstract. She appears less hostile or paranoid regarding family. She is more open to receiving assistance but still reports no need for mental health services. She reports side effects from olanzapine have improved, but are still present, but does not appear sedated or untowardly affected and her reports of side effects (spleen/liver/spine deposits) appear to be delusionally based. The patient will likely need further slow titration of olanzapine. [place] AXIS I Schizophrenia chronic paranoid type AXIS II Defer. AXIS III None. AXIS IV Severe. AXIS V Current global assessment of functioning equal to 35. Medications Olanzapine 10 mg at bedtime Treatments 1. The patient is admitted to the inpatient unit and will be provided a safe and secure environment. 2. The patient is denying current active suicidality and is not in need of a one-to-one at this time. She is agreeing to notify us should he have any acute suicidal or homicidal thoughts. 3. The patient is encouraged to participate with group and milieu activities. 4. The patient will be seen by the treatment team on a daily basis to assess symptoms, side effects and response to treatment. 5. Increase olanzapine to 12.5mg x 3 days then 15mg. 6. The patient received a 90 day commitment order on 11/01/2016. 7. Will likely need referral to [facility] should patient improve enough for LRO. Terence Brown MD Nov 01, 2016 14:29
--- NOTE | 2016-11-02 05:56 | NUR ---
nursing, nights, 11-7 s/o- has appeared to sleep after 0 during q 15 minute assessments. a- no apparent distress. p- monitor behavior/emotional state, quality, times and amount of sleep, use and effect of medication. betty
[2016-11-02 10:28] VITALS: BP 133/83; PULSE 86; RESP 16
--- NOTE | 2016-11-02 13:07 | PCM.PNPSY ---
Subjective Date of Service Nov 02, 2016 Subjective The patient reports that her son lives in [place] and just lost his job so may be reluctant to take her in. She still insists that the individual who says that he is her son is actually a neighbor. She reports that she would like to stay in [facility] and is agreeable to working with [facility] regarding services and housing. Patient agreed to follow LRO if that occurred "I don't have a choice. " Patient stated grogginess from olanzapine and "high blood pressure" although patient normotensive with fairly bright, alert affect. Sleep: 7.75+ hours, "restful" Appetite: "Real good" Suicidal and homicidal ideation: Denies Auditory hallucinations/Visual hallucinations: Denies Other Psychotic Symptoms: Continues as previously documented, though appears to be softening somewhat given statements regarding son. Anxiety: Denies Depression: Denies Current Medications Current Medications Olanzapine/ Olanzapine 12.5 mg HS PO Last administered on 11/01/16t 20:24; Admin Dose 12.5 MG; Start 11/01/16 at 21:00 Mental Status Exam Vital Signs Vital Signs Date Time Temp Pulse Resp B/P Pulse Ox O2 Delivery O2 Flow Rate FiO2 11/02/16 10:28 36.4 86 16 133/83 Appearance: Neat/well groomed Attitude: Pleasant, Cooperative, Guarded (mild at times) Behavior: No unusual behavior Affect: Well Modulated/Appropriate Mood: Euthymic Thought Process/Associations: Logical/Sequential, Goal Directed Speech Production: Normal Speech Rate: Normal Speech Articulation: Normal Thought Content: Suspicious (mild at times) Danger to Self/Suicidal Ideati: None Danger to Others: None Delusions: Paranoid (Endorses but continues to improve) Hallucinations: Auditory (Denies), Visual (Denies) Consciousness: Alert Orientation: Person, Place, Date, Situation Memory: Grossly Intact Estimate Intellectual Function: Average Attention/Concentration & Cogn: Grossly Intact Insight: Limited Judgement: Limited Mental Health Plan Sarita is a 65-year-old, female admitted on a 72 hour involuntary hold. Police initially found the body of a man on the porch of their house. 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 He apparently of natural causes several weeks prior. She was initially held in assisted under investigation of a homicide but upon discovering the nature of his she was transferred to [facility] for evaluation and treatment. Although the patient is still reporting delusional content, it appears to be slowly improving over time. She appears less hostile or paranoid regarding family. She is more open to receiving assistance but still reports no need for mental health services, but is willing to comply. Patient reports some side effects, but no increase since increase in dose. The patient will likely need further slow titration of olanzapine. [place] AXIS I Schizophrenia chronic paranoid type AXIS II Defer. AXIS III None. AXIS IV Severe. AXIS V Current global assessment of functioning equal to 35. Medications Olanzapine 12.5 mg at bedtime Treatments 1. The patient is admitted to the inpatient unit and will be provided a safe and secure environment. 2. The patient is denying current active suicidality and is not in need of a one-to-one at this time. She is agreeing to notify us should he have any acute suicidal or homicidal thoughts. 3. The patient is encouraged to participate with group and milieu activities. 4. The patient will be seen by the treatment team on a daily basis to assess symptoms, side effects and response to treatment. 5. Increase olanzapine to 12.5mg x 3 days then 15mg. 6. The patient received a 90 day commitment order on 11/01/2016. 7. Will likely need referral to [facility] should patient improve enough for LRO. Terence Brown MD Nov 02, 2016 13:07
--- NOTE | 2016-11-02 14:16 | NUR ---
Nursing Note [id number] Behavior S/O: Pt has good appetite. Pt out in milieu for meals, groups, & snacks. Pt attends groups but d/n interact with peers. No interactions with peers noted. Pt responds briefly to staff with 1-2 word sentences. Pt's goal today was to "pick out a craft...stay busy on a new project." A: Pt appears guarded & paranoid. P: Provide supportive environment. Monitor medications & effects.
--- NOTE | 2016-11-02 14:22 | NUR ---
Observations 0700 to 1430 Pt affect and mood remained the same as previous shifts. Pt speech was guarded and eye contact was ok. Pt attended both groups and unit activities. Pt attended community meeting and set a daily goal. Pt was social with staff and select peers when approached. Pt continues to give short responses when approached. Pt attended meals in D.R. and ate 100% of her meals. Pt maintained behavior throughout the shift. Pt was polite, pleasant and cooperative. Pt was in her room during free time and keeps to herself. Pt was observed every 15 minutes throughout the shift as ordered.
--- NOTE | 2016-11-02 18:53 | NUR ---
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 She denies S/I and H/I. She denies auditory and visual hallucinations. Depression is 0/10 and anxiety is 0/10. A: Patient is cooperative, pleasant, guarded, flat affect, suspicious, paranoid, no insight, poor judgment. P: Follow care plan, coordinate out-patient providers.
--- NOTE | 2016-11-03 05:32 | NUR ---
nursing, nights, 11-7 s/o- has appeared to sleep after 2200 during q 15 minute assessments. a- no apparent distress. p- monitor behavior/emotional state, quality, times and amount of sleep, use and effect of medication. betty
[2016-11-03 13:34] VITALS: BP 132/81; PULSE 66; RESP 16
--- NOTE | 2016-11-03 14:22 | PCM.PNPSY ---
Subjective Date of Service Nov 03, 2016 Subjective The patient was reading [employer] in the original 1726 language. Patient reported finding it a difficult read at times, but enjoying it. She stated was willing to fill out paperwork for [employer] but has to call [facility] to resolve her status as she has not completed taxes in over 10 years. No new side effect complaints or medical issues. Sleep: 8.25+ hours Appetite: "Real good" Suicidal and homicidal ideation: Denies Auditory hallucinations/Visual hallucinations: Denies Other Psychotic Symptoms: Continues as previously documented, though appears more organized and future oriented. Anxiety: Denies Depression: Denies Current Medications Current Medications Olanzapine/ Olanzapine 12.5 mg HS PO Last administered on 11/02/16t 20:43; Admin Dose 12.5 MG; Start 11/01/16 at 21:00 Mental Status Exam Vital Signs Vital Signs Date Time Temp Pulse Resp B/P Pulse Ox O2 Delivery O2 Flow Rate FiO2 11/03/16 13:34 36.4 66 16 132/81 Appearance: Neat/well groomed Attitude: Pleasant, Cooperative, Guarded (mild at times) Behavior: No unusual behavior Affect: Well Modulated/Appropriate Mood: Euthymic Thought Process/Associations: Logical/Sequential, Goal Directed Speech Production: Normal Speech Rate: Normal Speech Articulation: Normal Thought Content: Suspicious (mild at times) Danger to Self/Suicidal Ideati: None Danger to Others: None Delusions: Paranoid (Endorses but continues to improve) Hallucinations: Auditory (Denies), Visual (Denies) Consciousness: Alert Orientation: Person, Place, Date, Situation Memory: Grossly Intact Estimate Intellectual Function: Average Attention/Concentration & Cogn: Grossly Intact Insight: Limited Judgement: Limited Mental Health Plan Sarita is a 65-year-old, female admitted on a 72 hour involuntary hold. Police initially found the body of a man on the porch of their house. 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 He apparently of natural causes several weeks prior. She was initially held in half-way under investigation of a homicide but upon discovering the nature of his she was transferred to [facility] for evaluation and treatment. Although the patient is still reporting delusional content, it appears to be slowly improving over time. She appears less hostile or paranoid regarding family. She is more open to receiving assistance. Patient reports some side effects, but no increase since increase in dose. The patient will likely need further slow titration of olanzapine. [place] AXIS I Schizophrenia chronic paranoid type AXIS II Defer. AXIS III None. AXIS IV Severe. AXIS V Current global assessment of functioning equal to 35. Medications Olanzapine 12.5 mg at bedtime Treatments 1. The patient is admitted to the inpatient unit and will be provided a safe and secure environment. 2. The patient is denying current active suicidality and is not in need of a one-to-one at this time. She is agreeing to notify us should he have any acute suicidal or homicidal thoughts. 3. The patient is encouraged to participate with group and milieu activities. 4. The patient will be seen by the treatment team on a daily basis to assess symptoms, side effects and response to treatment. 5. Increase olanzapine to 12.5mg x 3 days then 15mg. 6. The patient received a 90 day commitment order on 11/01/2016. 7. Will likely need referral to [facility] should patient improve enough for LRO, needs to clarify status as noted above. Terence Brown MD Nov 03, 2016 14:22
--- NOTE | 2016-11-03 17:04 | NUR ---
Hazmat Technician/Counselor: S: "I looked for those scissors in the craft room and could not find them anymore." Patient still wants to "trim" the top of her hair. O: Patient slept 7.5 hours last night as per staff. She denies S/I and H/I. She denies auditory and visual hallucinations. Depression is 0/10 and anxiety is 0/10. This investment underwriter attempted to do a Home & Community application for patient but patient does not qualify for medicaid at this time. Judy from [facility], attempted to assist patient in trying to obtain medicaid and patient has not paid taxes, or had a job to report taxes since on or around 1989. A: Patient is cooperative, pleasant, guarded, flat affect, suspicious, paranoid, no insight, poor judgment. P: Follow care plan, coordinate out-patient providers.
--- NOTE | 2016-11-03 19:26 | NUR ---
Nursing Day Shift: Patient has been up out of her room for a good part of the day attending group activities. Good appetite at meals. Pleasant on approach. Good eye contact. denies any negative processes. Will monitor mood and behavior.
--- NOTE | 2016-11-03 19:39 | NUR ---
Observations 00 to 1929 Pt affect and mood remained the same as previous shifts. Pt speech was guarded and eye contact was ok. Pt attended group. Pt was minimally social with staff and select peers when approached. Pt continues to give short responses when approached. Pt attended meals in [employer] and ate 100% of her meals. Pt maintained behavior throughout the shift. Pt was polite, pleasant and cooperative. Pt was in her room during free time and keeps to herself. Pt was observed every 15 minutes throughout the shift as ordered.
--- NOTE | 2016-11-04 05:24 | NUR ---
Nursing Noc Pt out in common area staying to self and not interacting with others. Appeared to be attempting to cheek her medications this evening. When asked to show patient refused and went to garbage can to throw some garbage away. Usually patient asks what each medication is before taking, but not today. monitor behavior/emotional state, quality, times and amount of sleep, use and effect of medication.
--- NOTE | 2016-11-04 05:40 | NUR ---
Pt out on unit most of evening participating in group and watching TV. All interactions are superficial, any discussion that is somewhat probing or in depth is ignored or she will walk away. Asleep at 2230. Pt observed every 15 minutes as ordered.
[2016-11-04 10:14] VITALS: BP 128/80; PULSE 91; RESP 16
--- NOTE | 2016-11-04 16:03 | NUR ---
Installer Interior Assemblies./c.m. S.:"I'm feeling good..." O.: met with pt. and MD together in the morning. Pt. was walking in a regan after breakfast in order to decrease her weight gain. She slept "good" last night. She described her mood as "good". She said that "there is always side effect from medications". She denied SI/HI, denied AH/VH, denied depression or anxiety. She is mostly keeping to herself. She talked about her financial situation. She was hoping to talk to Home and Community Services training representative on Sunday. A.: pt. is cooperative, quiet, isolative, pleasant. She has poor insight about her mental health condition. P.: monitor behavior, monitor meds intake, follow care plan.
--- NOTE | 2016-11-04 16:19 | NUR ---
[id number]. nurs. S: "I don't think I could go to an Adult Family Home with poor people because they would steal my things my son is not renting out a room any more because they were stealing from him" O: Pt wondering about living in [facility] and difficulties of returning to place she was staying in in [place] attending to ADLs and coming to meals, reading a [employer] book that she had read before to understand it better stating that it was based on true story. Pt making references to her son living in [facility] and daughter living in [facility] and frequently referring back to her past neighbours and her perception of their responsibility for many of pxs she has experienced. A: pt continues to appear to be preoccupied with past pxs and recall is vague and confusing, states does not remember name of man who "just came down the street to live with me"..Pt denies MH pxs. Pt will tangentially return to past focus. P:CNCP.
--- NOTE | 2016-11-04 18:43 | PCM.PNPSY ---
Subjective Date of Service Nov 04, 2016 Subjective The patient denies acute issues. Reported side effect of "hard to get out of bed, dizzy, hard to walk." Patient is noted to be walking well up and down the unit to "work off the breakfast I ate." No ataxia noted, patient appearing quite alert. No cogwheeling or stiffness on physical exam. Sleep: 7+ hours Appetite: "good" Suicidal and homicidal ideation: Denies Auditory hallucinations/Visual hallucinations: Denies Other Psychotic Symptoms: appeared apprehensive but did not discuss delusional material Anxiety: Denies Depression: Denies Mental Status Exam Vital Signs Vital Signs Date Time Temp Pulse Resp B/P Pulse Ox O2 Delivery O2 Flow Rate FiO2 11/04/16 10:14 36.6 91 16 128/80 Appearance: Neat/well groomed Attitude: Pleasant, Cooperative, Guarded (mild at times) Behavior: No unusual behavior Affect: Well Modulated/Appropriate Mood: Euthymic Thought Process/Associations: Logical/Sequential, Goal Directed Speech Production: Normal Speech Rate: Normal Speech Articulation: Normal Thought Content: Suspicious (mild at times) Danger to Self/Suicidal Ideati: None Danger to Others: None Delusions: Paranoid (Endorses but continues to improve) Hallucinations: Auditory (Denies), Visual (Denies) Consciousness: Alert Orientation: Person, Place, Date, Situation Memory: Grossly Intact Estimate Intellectual Function: Average Attention/Concentration & Cogn: Grossly Intact Insight: Limited Judgement: Limited Mental Health Plan Sarita is a 65-year-old, female admitted on a 72 hour involuntary hold. Police initially found the body of a man on the porch of their house. 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 He apparently of natural causes several weeks prior. She was initially held in nursing home under investigation of a homicide but upon discovering the nature of his she was transferred to [facility] for evaluation and treatment. Although the patient is still reporting delusional content, it appears to be slowly improving over time. She appears more positive regarding family, but still does not fully endorse the identity of her son. She is more open to receiving assistance. Patient reports some side effects, but no increase since increase in dose. The patient needs further slow titration of olanzapine. [place] AXIS I Schizophrenia chronic paranoid type AXIS II Defer. AXIS III None. AXIS IV Severe. AXIS V Current global assessment of functioning equal to 35. Medications Olanzapine 12.5 mg at bedtime Treatments 1. The patient is admitted to the inpatient unit and will be provided a safe and secure environment. 2. The patient is denying current active suicidality and is not in need of a one-to-one at this time. She is agreeing to notify us should she have any acute suicidal or homicidal thoughts. 3. The patient is encouraged to participate with group and milieu activities. 4. The patient will be seen by the treatment team on a daily basis to assess symptoms, side effects and response to treatment. 5. Increase olanzapine to 15mg. 6. The patient received a 90 day commitment order on 11/01/2016. 7. Will likely need referral to [facility] should patient improve enough for LRO, needs to clarify status as she has not filed taxes/records in approximately 10 years. Terence Brown MD Nov 04, 2016 15:02
[2016-11-04] MEDS: OLANZapine Zydis ODT 5 mg Tablet PO SCH (21:03)
--- NOTE | 2016-11-05 02:11 | NUR ---
Observations 1900 to 0700 Pt was in her room for most of the night. Pt came out for snack and a little TV before going back to her room for the night as usual. Pt first appeared asleep at 22:00 and was observed every 15 minutes through the night as directed.
--- NOTE | 2016-11-05 05:20 | NUR ---
Nursing Noc Pt in common area watching TV until evening wrap up then isolated to room. Pt swallowed medications at med room window hesitantly. Noted to first be asleep at 2200 and remained asleep throughout the shift. Monitor behavior/emotional state, quality, times and amount of sleep, use and effect of medication.
--- NOTE | 2016-11-05 13:43 | NUR ---
Nursing Day shift- S- 'I'm having a good day." O- Pt. appeared asleep at the start of the day s hift. She had slept 8 plus hours per report. Pty. appears well groomed and upbeat. She continues to mostly keep to herself without initiating contact with staff or peers. She denies any mental health concerns or problems. Pt. was able to identify her son as such yesterday. A- Delusional with decrease in delusional grandiosity since admission. P- Cont. BHTP.
--- NOTE | 2016-11-05 14:45 | PCM.PNPSY ---
Subjective Date of Service Nov 05, 2016 Subjective The patient denies acute issues. Reported side effect of "dizziness and weakness," but is showing no objective signs of same and appears alert during the interview. She is now reading a science fiction book. She still reports that her son is not actually her son but that this individual visited with his "lady friend." She reports her mood as "real good." No ataxia noted, patient appearing quite alert. No cogwheeling or stiffness on physical exam. Sleep: 8+ hours, "real good." Appetite: "Eating good" Suicidal and homicidal ideation: Denies Auditory hallucinations/Visual hallucinations: Denies Other Psychotic Symptoms: Appears delusional as noted above but is attenuated Anxiety: Denies Depression: Denies Current Medications Current Medications Olanzapine 15 mg HS PO Last administered on 11/04/16t 21:03; Admin Dose 15 MG; Start 11/04/16 at 21:00 Mental Status Exam Appearance: Neat/well groomed Attitude: Pleasant, Cooperative, Guarded (somewhat) Behavior: No unusual behavior Affect: Well Modulated/Appropriate Mood: Euthymic Thought Process/Associations: Logical/Sequential, Goal Directed Speech Production: Normal Speech Rate: Normal Speech Articulation: Normal Thought Content: Suspicious (somewhat) Danger to Self/Suicidal Ideati: None Danger to Others: None Delusions: Paranoid (Endorses but continues to improve) Hallucinations: Auditory (Denies), Visual (Denies) Consciousness: Alert Orientation: Person, Place, Date, Situation Memory: Grossly Intact Estimate Intellectual Function: Average Attention/Concentration & Cogn: Grossly Intact Insight: Limited Judgement: Limited Mental Health Plan Sarita is a 65-year-old, female admitted on a 72 hour involuntary hold. Police initially found the body of a man on the porch of their house. 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 He apparently of natural causes several weeks prior. She was initially held in group home under investigation of a homicide but upon discovering the nature of his she was transferred to [facility] for evaluation and treatment. Although the patient is still reporting delusional content, it appears to be slowly improving over time. She appears more positive regarding family, but still believes her son is being impersonated by a neighbor. She is more open to receiving assistance. Patient reports some side effects, but no change or increase since increase in dose; the patient had previously reported delusional side effects that seems to be focusing on more somatic issues at this time. The patient has tolerated titration to olanzapine 15 mg and appears to be responding with decreased conviction of her delusions. [place] AXIS I Schizophrenia chronic paranoid type AXIS II Defer. AXIS III None. AXIS IV Severe. AXIS V Current global assessment of functioning equal to 35. Medications Olanzapine Zydis 15 mg at bedtime Treatments 1. The patient is admitted to the inpatient unit and will be provided a safe and secure environment. 2. The patient is denying current active suicidality and is not in need of a one-to-one at this time. 3. The patient is encouraged to participate with group and milieu activities. 4. The patient will be seen by the treatment team on a daily basis to assess symptoms, side effects and response to treatment. 5. Continue olanzapine 15mg. 6. The patient received a 90 day commitment order on 11/01/2016. 7. Will likely need referral to [facility] should patient improve enough for LRO, needs to clarify status as she has not filed taxes/records in approximately 10 years and so needs medicare approved. Terence Brown MD Nov 05, 2016 14:45
--- NOTE | 2016-11-05 15:54 | NUR ---
Sales And Management Trainee./ c.m. S.:"I feel pretty good." O.: met with pt. and MD together in pt.'s room. She "slept real good" last night. She denied SI/HI, denied AH/VH or paranoid/delusional thoughts, denied depression or anxiety. She said that she had side effect from meds as "dizziness and weakness". She had "a good visit yesterday" but she couldn't tell who visited her. She said "He was the same person and he brought a lady with him." She was pleased to get some of her clothes. She was in and out of her room but mostly keeping for herself. A.: pt. is cooperative, isolative, quiet, has a hard time following a conversation. She is confused and scattered. P.: monitor behavior, continue exploring housing options, monitor meds intake; follow care plan.
[2016-11-05] MEDS: OLANZapine Zydis ODT 5 mg Tablet PO SCH (21:05)
--- NOTE | 2016-11-05 22:59 | NUR ---
Evening Note 3pm to 11pm Pt seen fluctuating between common area and bed area. She sat for periods watching tv and looking out the window but was not engaging with peers and when attempting to make small talk was not interested. Pt was guarded and answered questions with one word answers. As a result I was unable to assess thought content or process. No delusional content elicited or observed. Pt denied A/VH and did not appear to be responding to internal stimuli. Pt took HS meds without incident. No side effects reported or observed. Pt reports back pain is under control at this time. Addendum: 11/05/16 at 2305 by YOKASTA RIDDLE RN Amended: Links added.
--- NOTE | 2016-11-06 04:13 | NUR ---
Observations from [id number] Pt spent the evening watching tv. Pt attended wrap up group and stated that she felt she accomplished her goal, and rated her mood 05/20 saying "it was a slow day but it was happy." Pt appeared asleep at 2200 and has remained asleep throughout the night. Pt has been monitored every 15 minutes as directed.
--- NOTE | 2016-11-06 05:58 | NUR ---
Sleep 11p-7a Adequate sleep through the night with no noted distress or awakening per protocol checks. Total sleep 7+ hours
[2016-11-06 10:13] VITALS: BP 124/84; PULSE 87; RESP 14
--- NOTE | 2016-11-06 11:13 | NUR ---
Helicopter Technician./ c.m. S.:"I'm doing great, real good. I have a broken spine so I need a doctor to give me a disability check. My teeth fell over right before I came here so nobody would hire me with this teeth. I need a disability check." O.: met with pt. in her room. She was standing near her bed quietly and staring into a space. She said that she slept "real good" last night. She denied SI/HI, denied AH/VH or paranoid/delusional thoughts. She denied depression or anxiety. She washed her clothes and spread them on a window seal for drying. "It takes me a day to dry my clothes like that." She complained about "broken spine". She said "I don't need a surgery but I need a disability check because nobody would hire me with teeth like that." She said that her "teeth feel over" right before her hospitalization here. She remembered to call [facility] and [facility] Community Services today. Digital Community Manager reminded pt. that she would get help from A making that phone calls. A.: pt. is cooperative, quiet, isolative, confused, paranoid and delusional, scattered in her thoughts. She had a hard time following a conversation. P.: monitor behavior, help pt. to make phone calls, monitor meds intake; follow care plan.
--- NOTE | 2016-11-06 13:06 | NUR ---
Behavior and thoughts P: Pt. is alert and oriented. When she was asked why she was hospitalized, she became upset and stated, "I don't want to talk about it, I don't believe what they told me." I: Allowed pt. to expressed her perspective. E: Pt. denied V/A hallucination today. She appeared to have limited insight of her condition/situation. No behavior issues noted. She made little effort to engage in conversation or interact with others.
--- NOTE | 2016-11-06 16:31 | PCM.PNPSY ---
Subjective Date of Service Nov 06, 2016 Subjective I spent 30 minutes both reviewing treatment plan and providing supportive/ educational psychotherapy. I spent more than 50% of the time counseling the patient. I reviewed the treatment plan with the patient and discussed options available including the potential risks, benefits and side effects. Marbin reports a marked improvement in thought organization and mood stability. Staff reports that she has been active and participating well in one-to-one unit and group activities. She needs to show little to no insight. She slept 8 hours and denies depression or ko or psychosis symptoms review. She denies medication side effects. Patient was not able to identify her medications or what they were used to treat. She did not appear to understand the need for medications by the questions she asked during our discussion. Current Medications Current Medications Olanzapine 15 mg HS PO Last administered on 11/05/16t 21:05; Admin Dose 15 MG; Start 11/04/16 at 21:00 Mental Status Exam Vital Signs Vital Signs Date Time Temp Pulse Resp B/P Pulse Ox O2 Delivery O2 Flow Rate FiO2 11/06/16 10:13 36.4 87 14 124/84 Appearance: Neat/well groomed Attitude: Pleasant, Cooperative, Guarded (somewhat) Behavior: No unusual behavior Affect: Well Modulated/Appropriate Mood: Euthymic Thought Process/Associations: Logical/Sequential, Goal Directed Speech Production: Normal Speech Rate: Normal Speech Articulation: Normal Thought Content: Suspicious (somewhat) Danger to Self/Suicidal Ideati: None Danger to Others: None Delusions: Paranoid (Endorses but continues to improve) Hallucinations: Auditory (Denies), Visual (Denies) Consciousness: Alert Orientation: Person, Place, Date, Situation Memory: Grossly Intact Estimate Intellectual Function: Average Attention/Concentration & Cogn: Grossly Intact Insight: Limited Judgement: Limited Mental Health Plan Sarita is a 65-year-old, white female, admitted initially on a 72 hour involuntary treatment hold after police found the body of the client. 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 He had apparently of natural causes several weeks ago. Although the patient is still reporting delusional content, it appears to be slowly improving over time. She appears more positive regarding family, but still believes her son is being impersonated by a neighbor. She is more open to receiving assistance. Patient reports some side effects, but no change or increase since increase in dose; the patient had previously reported delusional side effects that seems to be focusing on more somatic issues at this time. The patient has tolerated titration to olanzapine 15 mg and appears to be responding with decreased conviction of her delusions. [place] AXIS I Schizophrenia chronic paranoid type AXIS II Defer. AXIS III None. AXIS IV Severe. AXIS V Current global assessment of functioning equal to 35. Medications Olanzapine Zydis 15 mg at bedtime Treatments 1. The patient is admitted to the inpatient unit and will be provided a safe and secure environment. 2. The patient is denying current active suicidality and is not in need of a one-to-one at this time. 3. The patient is encouraged to participate with group and milieu activities. 4. The patient will be seen by the treatment team on a daily basis to assess symptoms, side effects and response to treatment. 5. Continue olanzapine 15mg. 6. The patient received a 90 day commitment order on 11/01/2016. 7. Will likely need referral to [facility] should patient improve enough for LRO, needs to clarify status as she has not filed taxes/records in approximately 10 years and so needs medicare approved. Matt Rabago MD Nov 06, 2016 16:31
--- NOTE | 2016-11-06 18:33 | NUR ---
Observations 0900 to 1700 Pt affect and mood remained the same as previous shifts. Pt speech was guarded but had some delusional content. Pt is religiously preoccupied. Pt eye contact was ok. Pt attended community meeting and set a daily goal. Pt rated her mood a 9/10, with 10 being the best. Pt was minimally social with staff and select peers when approached. Pt continues to give short responses when approached. Pt attended meals in D.R. and ate 100% of her meals. Pt maintained behavior throughout the shift. Pt was polite, pleasant and cooperative. Pt was in her room during free time and keeps to herself. Pt was observed every 15 minutes throughout the shift as ordered.
[2016-11-06] MEDS: OLANZapine Zydis ODT 5 mg Tablet PO SCH (20:48)
--- NOTE | 2016-11-07 01:45 | NUR ---
Observations 1900 to 0700 Pt was out and about more than usual last night. Pt did attend wrap up group. Pt first appeared asleep at 22:00 and was observed every 15 minutes through the night as directed.
--- NOTE | 2016-11-07 06:53 | NUR ---
Nursing Noc 7p-7a Pt continues much the same. She presents as bright and pleasant. Visible on the unit with appropriate interaction with both peers and staff. Delusional thought content still present. Took scheduled HS medication. Pt able to fall asleep and remain asleep with no further awakening or distress noted per protocol checks. Total sleep over 7.5 hours
[2016-11-07 08:00] VITALS: BP 127/85; PULSE 82; RESP 20
--- NOTE | 2016-11-07 14:04 | NUR ---
Behavior Unlike yesterday, she was more open to conversation. She expressed, "I'm wasting my time here. 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 I need to go to the social security office." Although pt. verbalized no auditory and visual hallucinations, she still exhibited mild paranoid and guarded behaviors. Pt. participated morning community meeting and stated she will attend afternoon group activity as well.
--- NOTE | 2016-11-07 14:10 | NUR ---
Aquaculture Farm Manager./ c.m. S.:"I'm good." O.: met with pt. in her room. She was quiet and answered briefly on health underwriter's questions. Pt.'s information was faxed to [facility] liaison for admission assessment. She denied SI/HI, denied AH/VH, denied depression or anxiety. A.: pt. is cooperative, pleasant, looks internally preoccupied. P.: monitor behavior, coordinate with [facility], follow care plan.
[2016-11-07 15:23] VITALS: BP 127/85; PULSE 82; RESP 20
--- NOTE | 2016-11-07 16:47 | NUR ---
Observations 0900 to 1700 Pt affect and mood remained the same as previous shifts.flat, isolative, walking/pacing hallway Pt speech was guarded. Pt is religiously preoccupied. Pt eye contact was ok. Pt attended community meeting and set a daily goal. Pt rated her mood a 9/10, with 10 being the best. Pt was minimally social with staff and select peers when approached. Pt continues to give short responses when approached. Pt attended meals in D.R. and ate 100% of her meals. Pt maintained behavior throughout the shift. Pt was polite, pleasant and cooperative. Pt was in her room during free time and keeps to herself. Pt watched a little bit of TV and read the newspaper. Pt was observed every 15 minutes throughout the shift as ordered.
--- NOTE | 2016-11-07 17:33 | PCM.PNPSY ---
Subjective Date of Service Nov 07, 2016 Subjective I spent 30 minutes both reviewing treatment plan and providing supportive/ educational psychotherapy. I spent more than 50% of the time counseling the patient. I reviewed the treatment plan with the patient and discussed options available including the potential risks, benefits and side effects. Marbin reports that she is fine and is ready for discharge. Staff reports that she has been active and participating well in one-to-one unit and group activities. She shows little to no insight. She slept 8 hours and denies depression or ko or psychosis symptoms review. She denies medication side effects. Patient was not able to identify her medications or what they were used to treat. She did not appear to understand the need for medications by the questions she asked during our discussion. Mental Status Exam Vital Signs Vital Signs Date Time Temp Pulse Resp B/P Pulse Ox O2 Delivery O2 Flow Rate FiO2 11/07/16 15:23 36.7 82 20 127/85 Appearance: Neat/well groomed Attitude: Pleasant, Cooperative, Guarded (somewhat) Behavior: No unusual behavior Affect: Well Modulated/Appropriate Mood: Euthymic Thought Process/Associations: Logical/Sequential, Goal Directed Speech Production: Normal Speech Rate: Normal Speech Articulation: Normal Thought Content: Suspicious (somewhat) Danger to Self/Suicidal Ideati: None Danger to Others: None Delusions: Paranoid (Endorses but continues to improve) Hallucinations: Auditory (Denies), Visual (Denies) Consciousness: Alert Orientation: Person, Place, Date, Situation Memory: Grossly Intact Estimate Intellectual Function: Average Attention/Concentration & Cogn: Grossly Intact Insight: Limited Judgement: Limited Mental Health Plan Sarita is a 65-year-old, white female, admitted initially on a 72 hour involuntary treatment hold after police found the body of the client. 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 He had apparently of natural causes several weeks ago. Although the patient is still reporting delusional content, it appears to be slowly improving over time. She appears more positive regarding family, but still believes her son is being impersonated by a neighbor. She is more open to receiving assistance. Patient reports some side effects, but no change or increase since increase in dose; the patient had previously reported delusional side effects that seems to be focusing on more somatic issues at this time. The patient has tolerated titration to olanzapine 15 mg and appears to be responding with decreased conviction of her delusions. Zuleyka appears to be making slow but steady progress. [place] AXIS I Schizophrenia chronic paranoid type AXIS II Defer. AXIS III None. AXIS IV Severe. AXIS V Current global assessment of functioning equal to 35. Medications Olanzapine Zydis 15 mg at bedtime Treatments 1. The patient is admitted to the inpatient unit and will be provided a safe and secure environment. 2. The patient is denying current active suicidality and is not in need of a one-to-one at this time. 3. The patient is encouraged to participate with group and milieu activities. 4. The patient will be seen by the treatment team on a daily basis to assess symptoms, side effects and response to treatment. 5. Continue olanzapine 15mg. 6. The patient received a 90 day commitment order on 11/01/2016. 7. Will likely need referral to [facility] should patient improve enough for LRO, needs to clarify status as she has not filed taxes/records in approximately 10 years and so needs medicare approved. Matt Rabago MD Nov 07, 2016 17:33
[2016-11-07] MEDS: OLANZapine Zydis ODT 5 mg Tablet PO SCH (20:42)
--- NOTE | 2016-11-07 21:09 | NUR ---
Nursing Note Nanda Pt behavior polite and cooperative. Pt noted having social interactions with peers and is currently up in milieu eating snack and watching movie. Pt was compliant with HS meds and denied anxiety, depression and SI. No PRN's given on shift and Q15 min safety checks per protocol. WCTM sleep, safety, behavior
--- NOTE | 2016-11-08 02:06 | NUR ---
Observations 1900 to 0700 Pt was out and about more than usual last night. Pt did attend wrap up group. Pt watched a little TV last night. Pt first appeared asleep at 22:15 and was observed every 15 minutes through the night as directed.
--- NOTE | 2016-11-08 06:37 | NUR ---
Sleep 11p-7a Adequate sleep through the night with no noted distress or awakening per protocol checks. Total sleep over 8 hours.
--- NOTE | 2016-11-08 12:20 | NUR ---
DAYS 7-7 S/O-Patient participating in group activities, out with others at meals. Patient appears well groomed and calm. Patient had extended conversation with nurse regarding fruit trees and thought process appeared lucid. A- Listening attentively, walked with patient, encouraged participation with staff and other patients. P-90 day MR Kumar. Addendum: 11/08/16 at 1236 by DAVID KHANNA RN Amended: Links added.
[2016-11-08 14:43] VITALS: BP 128/80; PULSE 86; RESP 16
--- NOTE | 2016-11-08 15:21 | PCM.PNPSY ---
Subjective Date of Service Nov 08, 2016 Subjective I spent 30 minutes both reviewing treatment plan and providing supportive/ educational psychotherapy. I spent more than 50% of the time counseling the patient. I reviewed the treatment plan with the patient and discussed options available including the potential risks, benefits and side effects. Marbin repeats today that she is fine and is ready for discharge. Staff reports that she has been participating well in one-to-one unit and group activities but remains flat in affect and minimally interested.. She shows little to no insight. She slept well and denies depression or ko or psychosis symptoms review. If you talk at her at any length of fairly fixed delusional belief system becomes apparent. She denies medication side effects. Patient was not able to identify her medications or what they were used to treat. She did not appear to understand the need for medications by the questions she asked during our discussion. Mental Status Exam Vital Signs Vital Signs Date Time Temp Pulse Resp B/P Pulse Ox O2 Delivery O2 Flow Rate FiO2 11/08/16 14:43 36.3 86 16 128/80 Appearance: Neat/well groomed Attitude: Pleasant, Cooperative, Guarded (somewhat) Behavior: No unusual behavior Affect: Well Modulated/Appropriate Mood: Euthymic Thought Process/Associations: Logical/Sequential, Goal Directed Speech Production: Normal Speech Rate: Normal Speech Articulation: Normal Thought Content: Suspicious (somewhat) Danger to Self/Suicidal Ideati: None Danger to Others: None Delusions: Paranoid (Endorses but continues to improve) Hallucinations: Auditory (Denies), Visual (Denies) Consciousness: Alert Orientation: Person, Place, Date, Situation Memory: Grossly Intact Estimate Intellectual Function: Average Attention/Concentration & Cogn: Grossly Intact Insight: Limited Judgement: Limited Mental Health Plan Sarita is a 65-year-old, white female, admitted initially on a 72 hour involuntary treatment hold after police found the body of the client. 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 He had apparently of natural causes several weeks ago. Although the patient is still reporting delusional content, it appears to be slowly improving over time. She appears more positive regarding family, but still believes her son is being impersonated by a neighbor. She is more open to receiving assistance. Patient reports some side effects, but no change or increase since increase in dose; the patient had previously reported delusional side effects that seems to be focusing on more somatic issues at this time. The patient has tolerated titration to olanzapine 15 mg and appears to be responding with decreased conviction of her delusions. Zuleyka appears to be making slow but steady progress. At this point due to her thought Disorganization and delusional themes I do not believe she is able to advocate for herself and safely attend 2 activities of daily living. [place] AXIS I Schizophrenia chronic paranoid type AXIS II Defer. AXIS III None. AXIS IV Severe. AXIS V Current global assessment of functioning equal to 35. Medications Olanzapine Zydis 15 mg at bedtime Treatments 1. The patient is admitted to the inpatient unit and will be provided a safe and secure environment. 2. The patient is denying current active suicidality and is not in need of a one-to-one at this time. 3. The patient is encouraged to participate with group and milieu activities. 4. The patient will be seen by the treatment team on a daily basis to assess symptoms, side effects and response to treatment. 5. Continue olanzapine 15mg. 6. The patient received a 90 day commitment order on 11/01/2016. 7. Will likely need referral to [facility] should patient improve enough for LRO, needs to clarify status as she has not filed taxes/records in approximately 10 years and so needs medicare approved. Matt Rabago MD Nov 08, 2016 15:21
[2016-11-08] MEDS: OLANZapine Zydis ODT 5 mg Tablet PO SCH (20:40)
--- NOTE | 2016-11-08 21:01 | NUR ---
NURSING NOTE [id number] Mood= "good" Affect= flat, distracted Behavior= visible on the fringes of the milieu, went to rec group, sitting alone in the DR at a table staring at the wall, watches TV. Med compliant. Thought processes= guarded in her answers, gives this literary writer brief answers and denies all disturbed thought processes. No overt delusional statements made to this literary writer. Denies SI/HI. Does appear internally preoccupied.
--- NOTE | 2016-11-09 01:59 | NUR ---
Observations 1900 to 0700 Pt was out and about more than usual last night. Pt did attend wrap up group. Pt watched a little TV last night. Pt first appeared asleep at 21:45 and was observed every 15 minutes through the night as directed.
--- NOTE | 2016-11-09 05:51 | NUR ---
nursing, nights, 11-7 s/o- has appeared to sleep after 2144 during q 15 minute assessments. a- no apparent distress. p- monitor behavior/emotional state, quality, times and amount of sleep, use and effect of medication. betty
--- NOTE | 2016-11-09 11:48 | NUR ---
Nursing Day Shift- S- "I can't do stretching because my knee caps are broken. They have been broken for years. They don't heal." O- Pt. had slept over 8 hours per shift report. She was pleasant and well dressed for breakfast. Pt. stated the above when asked about attending a stretching group. She continues to be delusional and pleasant. Pt. denies any mental illness or mental health concerns. A- Behavior and paranoid delusional thinking remain unchanged the past few weeks. P- Awaiting response from [facility]. Cont. BHTP.
--- NOTE | 2016-11-09 14:05 | PCM.PNPSY ---
Subjective Date of Service Nov 09, 2016 Subjective I spent 20 minutes both reviewing treatment plan and providing supportive/ educational psychotherapy. I spent more than 50% of the time counseling the patient. Marbin repeats today that she is fine and is ready for discharge. Staff reports that she has been participating well in one-to-one unit and group activities but remains flat in affect and minimally interested.. She shows little to no insight. She slept well and denies depression or ko or psychosis symptoms review. If you talk at her at any length of fairly fixed delusional belief system becomes apparent. She denies medication side effects. Patient was not able to identify her medications or what they were used to treat. She did not appear to understand the need for medications by the questions she asked during our discussion. Mental Status Exam Appearance: Neat/well groomed Attitude: Pleasant, Cooperative, Guarded (somewhat) Behavior: No unusual behavior Affect: Well Modulated/Appropriate Mood: Euthymic Thought Process/Associations: Logical/Sequential, Goal Directed Speech Production: Normal Speech Rate: Normal Speech Articulation: Normal Thought Content: Suspicious (somewhat) Danger to Self/Suicidal Ideati: None Danger to Others: None Delusions: Paranoid (Endorses but continues to improve) Hallucinations: Auditory (Denies), Visual (Denies) Consciousness: Alert Orientation: Person, Place, Date, Situation Memory: Grossly Intact Estimate Intellectual Function: Average Attention/Concentration & Cogn: Grossly Intact Insight: Limited Judgement: Limited Mental Health Plan Sarita is a 65-year-old, white female, admitted initially on a 72 hour involuntary treatment hold after police found the body of the client. 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 He had apparently of natural causes several weeks ago. Although the patient is still reporting delusional content, it appears to be slowly improving over time. She appears more positive regarding family, but still believes her son is being impersonated by a neighbor. She is more open to receiving assistance. Patient reports some side effects, but no change or increase since increase in dose; the patient had previously reported delusional side effects that seems to be focusing on more somatic issues at this time. The patient has tolerated titration to olanzapine 15 mg and appears to be responding with decreased conviction of her delusions. Zuleyka appears to be making slow but steady progress. At this point due to her thought Disorganization and delusional themes I do not believe she is able to advocate for herself and safely attend to activities of daily living. [place] AXIS I Schizophrenia chronic paranoid type AXIS II Defer. AXIS III None. AXIS IV Severe. AXIS V Current global assessment of functioning equal to 35. Medications Olanzapine Zydis 15 mg at bedtime Treatments 1. The patient is admitted to the inpatient unit and will be provided a safe and secure environment. 2. The patient is denying current active suicidality and is not in need of a one-to-one at this time. 3. The patient is encouraged to participate with group and milieu activities. 4. The patient will be seen by the treatment team on a daily basis to assess symptoms, side effects and response to treatment. 5. Continue olanzapine 15mg. 6. The patient received a 90 day commitment order on 11/01/2016. 7. Will likely need referral to [facility] should patient improve enough for LRO, needs to clarify status as she has not filed taxes/records in approximately 10 years and so needs medicare approved. Matt Rabago MD Nov 09, 2016 14:05
--- NOTE | 2016-11-09 18:00 | NUR ---
[facility] Day Shift Pt affect and behavior mostly unchanged from previous shifts. Pt maintained behavior control throughout the shift. Pt affect appears mostly flat. Pt spends most of the shift resting in her room, occasionally participating in unit activities and interacting lightly with peers in the dining room. Pt is not overly social with staff and peers when active on the unit, but is appropriate when engaged. Pt attended community meeting in the AM, and lightly engages in group activities throughout the shift. Pt attended all meals and ate approx 100% of all meals.
[2016-11-09] MEDS: OLANZapine Zydis ODT 5 mg Tablet PO SCH (20:24)
--- NOTE | 2016-11-09 21:52 | NUR ---
NURSING NOTE [id number] Mood= "I'm doing good" Affect= guarded Behavior= visible in the DR and rec room this shift, however, interacts very little w/her peers unless approached. Med compliant. Thought processes= difficult to engage in conversation re: thought content. Pt. continues to deny any thought disturbances, is very guarded, but has no complaints about her stay here and reports "I like it here"
--- NOTE | 2016-11-10 04:28 | NUR ---
Pt out on unit most of evening participating in group and watching TV. All interactions are superficial, any discussion that is somewhat probing or in depth is ignored or she will walk away. Asleep at 2145. Pt observed every 15 minutes as ordered.
[2016-11-10 09:00] VITALS: BP 129/74; PULSE 70; RESP 16
--- NOTE | 2016-11-10 12:46 | PCM.PNPSY ---
Subjective Date of Service Nov 10, 2016 Subjective I spent 20 minutes both reviewing treatment plan and providing supportive/ educational psychotherapy. 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 Staff reports that she has been participating well with other patients and staff but tends to avoid group activities. She remains flat in affect and minimally interested. She shows little to no insight. She slept well and denies depression or ko or psychosis symptoms review. If you talk at her at any length of fairly fixed delusional belief system becomes apparent. She denies medication side effects. Patient was not able to identify her medications or what they were used to treat. She did not appear to understand the need for medications by the questions she asked during our discussion. Mental Status Exam Appearance: Neat/well groomed Attitude: Pleasant, Cooperative, Guarded (somewhat) Behavior: No unusual behavior Affect: Well Modulated/Appropriate Mood: Euthymic Thought Process/Associations: Logical/Sequential, Goal Directed Speech Production: Normal Speech Rate: Normal Speech Articulation: Normal Thought Content: Suspicious (somewhat) Danger to Self/Suicidal Ideati: None Danger to Others: None Delusions: Paranoid (Endorses but continues to improve) Hallucinations: Auditory (Denies), Visual (Denies) Consciousness: Alert Orientation: Person, Place, Date, Situation Memory: Grossly Intact Estimate Intellectual Function: Average Attention/Concentration & Cogn: Grossly Intact Insight: Limited Judgement: Limited Mental Health Plan Sarita is a 65-year-old, white female, admitted initially on a 72 hour involuntary treatment hold after police found the body of the client. 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 He had apparently of natural causes several weeks ago. Although the patient is still reporting delusional content, it appears to be slowly improving over time. She appears more positive regarding family, but still believes her son is being impersonated by a neighbor. She is more open to receiving assistance. Patient reports some side effects, but no change or increase since increase in dose; the patient had previously reported delusional side effects that seems to be focusing on more somatic issues at this time. The patient has tolerated titration to olanzapine 15 mg and appears to be responding with decreased conviction of her delusions. Sarita is making slow but steady progress. At this point due to her thought Disorganization and delusional themes I do not believe she is able to advocate for herself and safely attend to activities of daily living. [place] AXIS I Schizophrenia chronic paranoid type AXIS II Defer. AXIS III None. AXIS IV Severe. AXIS V Current global assessment of functioning equal to 35. Medications Olanzapine Zydis 15 mg at bedtime Treatments 1. The patient is admitted to the inpatient unit and will be provided a safe and secure environment. 2. The patient is denying current active suicidality and is not in need of a one-to-one at this time. 3. The patient is encouraged to participate with group and milieu activities. 4. The patient will be seen by the treatment team on a daily basis to assess symptoms, side effects and response to treatment. 5. Continue olanzapine 15mg. 6. The patient received a 90 day commitment order on 11/01/2016. 7. Will likely need referral to [facility] should patient improve enough for LRO, needs to clarify status as she has not filed taxes/records in approximately 10 years and so needs medicare approved. Matt Rabago MD Nov 10, 2016 12:46
--- NOTE | 2016-11-10 12:57 | NUR ---
Nursing Day Shift- S/O Pt. was awake for breakfast. She continues to appear upbeat and well groomed, polite but vague. She continues to deny all mental health concerns or problems. A- Delusion and paranoid with no insight. P- Cont. bHTP.
--- NOTE | 2016-11-10 17:12 | NUR ---
Review Analyst/Counselor: S: "I'm glad I'm going outside for some air." O: Patient slept 8.25+ hours last night as per staff. She denies S/I and H/I. She denies auditory and visual hallucinations. Depression is 0/10 and anxiety is 0/10. This racebook writer spoke with Mariel at [facility] and patient's information will be sent on to [facility] for screen for possible admission. A: Patient is cooperative, pleasant, guarded, euthymic, paranoid, limited insight, limited judgment. P: Follow care plan, coordinate out-patient providers.
--- NOTE | 2016-11-10 18:24 | NUR ---
[facility] Day Shift Pt affect and behavior unchanged from previous shifts. Pt maintained behavior control throughout the shift. Pt affect appears mostly flat. Pt spends most of the shift resting in her room, occasionally participating in unit activities and interacting lightly with peers in the dining room. Pt is not overly social with staff and peers when active on the unit, but is appropriate when engaged. Pt attended community meeting in the AM, and lightly engages in group activities throughout the shift. Pt attended all meals and ate approx 100% of all meals.
--- NOTE | 2016-11-10 19:42 | NUR ---
Nurses Note Evening Patient remains cooperative pleasant upon approach and superficial in conversation. She remains in the day room with peers but doesn't interact with others. Her hygiene,sleep and appetite have been undisturbed, patient remains medication compliant without adverse effects.Will continue to encourage socialization skills and continued medication compliant. Addendum: 11/10/16 at 1950 by DAVEY MAN RN Amended: Links added.
[2016-11-10] MEDS: OLANZapine Zydis ODT 5 mg Tablet PO SCH (20:21)
--- NOTE | 2016-11-11 05:17 | NUR ---
Civil Engineering Specialist Note 11pm to 7am Pt appeared to sleep soundly throughout the night, in no acute distress. Monitored q15 minutes for safety location and accountability.
[2016-11-11 11:45] VITALS: BP 132/92; PULSE 76; RESP 16
--- NOTE | 2016-11-11 13:48 | NUR ---
Nursing Day Shift Patient cooperative and pleasant. Attended morning group. In dining room throughout day, but not interactive with peers. Patient denies depression, anxiety, SI/HI, hallucinations, and reports "I'm fine".
--- NOTE | 2016-11-11 15:32 | PCM.PNPSY ---
Subjective Date of Service Nov 11, 2016 Subjective I spent 20 minutes both reviewing treatment plan and providing supportive psychotherapy. 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 Staff reports that she has been participating well with other patients and staff and is now attending group activities. She remains flat in affect and minimally interested. She shows little to no insight. She slept well and denies depression or ko or psychosis symptoms review. If you talk at her at any length of fairly fixed delusional belief system becomes apparent. She denies medication side effects. Patient was not able to identify her medications or what they were used to treat. She did not appear to understand the need for medications by the questions she asked during our discussion. Mental Status Exam Vital Signs Vital Signs Date Time Temp Pulse Resp B/P Pulse Ox O2 Delivery O2 Flow Rate FiO2 11/11/16 11:45 36.4 76 16 132/92 Appearance: Neat/well groomed Attitude: Pleasant, Cooperative, Guarded (somewhat) Behavior: No unusual behavior Affect: Well Modulated/Appropriate Mood: Euthymic Thought Process/Associations: Logical/Sequential, Goal Directed Speech Production: Normal Speech Rate: Normal Speech Articulation: Normal Thought Content: Suspicious (somewhat) Danger to Self/Suicidal Ideati: None Danger to Others: None Delusions: Paranoid (Endorses but continues to improve) Hallucinations: Auditory (Denies), Visual (Denies) Consciousness: Alert Orientation: Person, Place, Date, Situation Memory: Grossly Intact Estimate Intellectual Function: Average Attention/Concentration & Cogn: Grossly Intact Insight: Limited Judgement: Limited Mental Health Plan Sarita is a 65-year-old, white female, admitted initially on a 72 hour involuntary treatment hold after police found the body of the client. 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 He had apparently of natural causes several weeks ago. Although the patient is still reporting delusional content, it appears to be slowly improving over time. She appears more positive regarding family, but still believes her son is being impersonated by a neighbor. She is more open to receiving assistance. Patient reports some side effects, but no change or increase since increase in dose; the patient had previously reported delusional side effects that seems to be focusing on more somatic issues at this time. The patient has tolerated titration to olanzapine 15 mg and appears to be responding with decreased conviction of her delusions. Sarita is making slow but steady progress. At this point due to her thought Disorganization and delusional themes I do not believe she is able to advocate for herself and safely attend to activities of daily living. [place] AXIS I Schizophrenia chronic paranoid type AXIS II Defer. AXIS III None. AXIS IV Severe. AXIS V Current global assessment of functioning equal to 35. Medications Olanzapine Zydis 15 mg at bedtime Treatments 1. The patient is admitted to the inpatient unit and will be provided a safe and secure environment. 2. The patient is denying current active suicidality and is not in need of a one-to-one at this time. 3. The patient is encouraged to participate with group and milieu activities. 4. The patient will be seen by the treatment team on a daily basis to assess symptoms, side effects and response to treatment. 5. Continue olanzapine 15mg. 6. The patient received a 90 day commitment order on 11/01/2016. 7. Will likely need referral to [facility] should patient improve enough for LRO, needs to clarify status as she has not filed taxes/records in approximately 10 years and so needs medicare approved. Matt Rabago MD Nov 11, 2016 15:31
--- NOTE | 2016-11-11 16:45 | NUR ---
Lobby Porter./ c.m. S.:"I'm fine." O.: met with pt. to discuss her progress. She slept "fine" last night. She denied SI/HI, denied AH/VH, denied depression or anxiety. She was in and out of her room walking in a regan or sitting in a Dining room by herself. A.: pt. is cooperative, isolative, quiet, looks internally preoccupied, has a flat affect. P.: monitor behavior, follow care plan.
[2016-11-11] MEDS: OLANZapine Zydis ODT 5 mg Tablet PO SCH (20:24)
--- NOTE | 2016-11-11 21:02 | NUR ---
OBSERVATIONS 0900 TO 2130 Pt spent the day between her room and common areas, however, did not engage socially with pts. Pt was cooperative and appropriate with staff. Pt displayed some agitation regarding paperwork at one point during the day but was easily redirected. Maintained Q15 safety checks as directed.
--- NOTE | 2016-11-12 01:31 | NUR ---
Nursing Note clock smith 7pm to 7am. Pt visible on unit at start of shift, smiled at group underwriter in response to "hello". Pt is well groomed, makes good eye contact, does not socially engage with peers, responds to staff when approached however rarely makes spontaneous requests and is very independent. Pts thoughts are organized, logical and linear in conversation, denies A/V H, no delusional content expressed, is able to track conversation, speech normal rate and rhythm. Pt reports depression/anxiety is a 11/17, affect downcast. Pt medication compliant although was under the impression MD was going to cut her zyprexa back to 10mg HS. Accepted that the change had not been made and took medications without issue. Addendum: 11/12/16 at 0503 by YOKASTA RIDDLE RN Pt slept soundly throughout the night, in no acute distress. Pt slept approx 6.75 hours. Monitoring ongoing
[2016-11-12 09:42] VITALS: BP 125/86; PULSE 97; RESP 16
--- NOTE | 2016-11-12 11:34 | NUR ---
NURSING NOTE [id number] Mood= "Go ahead, ask me the 5 questions: Am I depressed? No. Am I suicidal? No." *laughs* Affect= flat Behavior= sitting in her room on her bed staring at the wall, in and out of the DR but minimal interaction w/peers, attended community meeting Thought processes= pt. still harboring delusions re: her neighbors. She said the only issue she is having here is knowing that her neighbors are coming to her house to steal her mail and that the neighborhood children are going into her house to steal her clothes. Also; "my cat's been eating human food for 6 months or so because I couldn't buy animal food... the neighbors are probably feeding her too. It doesn't matter. It doesn't matter." She reports her goal for the day is "to try to remember the last few numbers of my drivers license so I can give it to Medicaid." Pt. expresses no insight into her condition or why she is here. Pt reports she "feels bad that I'm free-loading here... I don't see why I'm here but as long as I don't have to pay for it..." Addendum: 11/12/16 at 1224 by CARLIN DANIEL RN PLEASE NOTE THIS NOTE WAS FOR DAYSHIFT, NOT [id number]
--- NOTE | 2016-11-12 14:02 | PCM.PNPSY ---
Subjective Date of Service Nov 12, 2016 Subjective I spent 20 minutes both reviewing treatment plan and providing supportive psychotherapy. I spent more than 50% of the time counseling the patient. 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 Staff reports that she has been participating well with other patients and staff and is now attending group activities. She remains flat in affect and minimally interested. She shows little to no insight. She slept well and denies depression or ko or psychosis symptoms review. If you talk at her at any length of fairly fixed delusional belief system becomes apparent. She complained of medication side effects of being emotionally flat and too sedated. Mental Status Exam Appearance: Neat/well groomed Attitude: Pleasant, Cooperative, Guarded (somewhat) Behavior: No unusual behavior Affect: Well Modulated/Appropriate Mood: Euthymic Thought Process/Associations: Logical/Sequential, Goal Directed Speech Production: Normal Speech Rate: Normal Speech Articulation: Normal Thought Content: Suspicious (somewhat) Danger to Self/Suicidal Ideati: None Danger to Others: None Delusions: Paranoid (Endorses but continues to improve) Hallucinations: Auditory (Denies), Visual (Denies) Consciousness: Alert Orientation: Person, Place, Date, Situation Memory: Grossly Intact Estimate Intellectual Function: Average Attention/Concentration & Cogn: Grossly Intact Insight: Limited Judgement: Limited Mental Health Plan Sarita is a 65-year-old, white female, admitted initially on a 72 hour involuntary treatment hold after police found the body of the client. 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 He had apparently of natural causes several weeks ago. Although the patient is still reporting delusional content, it appears to be slowly improving over time. She appears more positive regarding family, but still believes her son is being impersonated by a neighbor. She is more open to receiving assistance. Patient reports some side effects, but no change or increase since increase in dose; the patient had previously reported delusional side effects that seems to be focusing on more somatic issues at this time. The patient has tolerated titration to olanzapine 15 mg and appears to be responding with decreased conviction of her delusions. Sarita is making slow but steady progress. At this point due to her thought Disorganization and delusional themes I do not believe she is able to advocate for herself and safely attend to activities of daily living. [place] AXIS I Schizophrenia chronic paranoid type AXIS II Defer. AXIS III None. AXIS IV Severe. AXIS V Current global assessment of functioning equal to 35. Medications Olanzapine Zydis 15 mg at bedtime Treatments 1. The patient is admitted to the inpatient unit and will be provided a safe and secure environment. 2. The patient is denying current active suicidality and is not in need of a one-to-one at this time. 3. The patient is encouraged to participate with group and milieu activities. 4. The patient will be seen by the treatment team on a daily basis to assess symptoms, side effects and response to treatment. 5. Decrease olanzapine to 10mg. 6. The patient received a 90 day commitment order on 11/01/2016. 7. Will likely need referral to [facility] should patient improve enough for LRO, needs to clarify status as she has not filed taxes/records in approximately 10 years and so needs medicare approved. Matt Rabago MD Nov 12, 2016 14:02
--- NOTE | 2016-11-12 16:29 | NUR ---
Pocket Machine Operator./ c.m. S.:"Good..." O.: pt. was in and out of her room. She was walking in a regan or sitting in a Dining room by herself. She doesn't socialize with peers. She was staring into a space very often. She denied SI/HI, denied AH/VH, denied depression or anxiety. A.: pt. is isolative, quiet, looks internally preoccupied and has a flat affect. P.: monitor behavior, continue engaging pt. in the unit activities, call [facility] for admission screening; follow care plan.
--- NOTE | 2016-11-12 18:53 | NUR ---
Observations [id number] Pt was awake in room upon start of shift. She continues to be very routine with her day, spending time in her room and writing stories. Pt also continues to be very guarded, not divulging much information to staff and peers. Pt attends all meals, eating 100%. She continues to spend time in common areas, but is not very social. Upon interaction demeanor is flat. Pt was observed every 15 minutes of shift as directed.
[2016-11-12] MEDS: OLANZapine Zydis ODT 5 mg Tablet PO SCH (20:58)
--- NOTE | 2016-11-13 04:37 | NUR ---
NURS NOC 12H Mood: "I'm worried about all the mail piling up at home;" endorses anxiety 3/10, depression 0/10 Affect: Appropriate Behavior: Pt up in day room at start of shift. Pt slept 2129 to present Thought Process: Linear, logical. Shanna AH,VH. Shanna SI, HI. Nursing Note/PRN: ibuprofen 600 mg 1840 for neck pain
--- NOTE | 2016-11-13 14:29 | NUR ---
Nursing Note [id number] Behavior S/O: Pt ate 100% of breakfast & lunch. VS stable. Pt out in milieu during the day. Little interaction with peers or staff even when encouraged. Pt did attend community meeting this morning. She stated her goal was to "keep pleasing the doctor & nurses...keep doing what I'm supposed to do." Pt reported her mood to be at an 8/10-10 the best. Pt con't to believer she d/n have a mental illness. A: Pt has no insight into illness. P: Provide supportive environment. Monitor medications & effects.
--- NOTE | 2016-11-13 15:28 | PCM.PNPSY ---
Subjective Date of Service Nov 13, 2016 Subjective The patient states that she is "good, no problems." Despite reducing her olanzapine she states that she is "tired, sleepy all the time." She reports side effects of "dizziness and head spins." When she asked why she is still in the hospital as she has been behaving appropriately, she is informed of the events leading up to her hospitalization and her numerous delusional statements. The patient spontaneously adds that someone else was bringing the bodies to the house as they had "too many, five of them, in their freezer and they were bringing them one at a time to the house." The patient is currently on the wait list for [facility]. Sleep: 8.5+ hours Appetite: Good Suicidal and homicidal ideation: Denies Auditory hallucinations/Visual hallucinations: Denies Other Psychotic Symptoms: Ongoing delusions. Anxiety: Denies Depression: Denies Current Medications Current Medications Olanzapine 10 mg HS PO Last administered on 11/12/16t 20:58; Admin Dose 10 MG; Start 11/12/16 at 21:00 Mental Status Exam Appearance: Neat/well groomed Attitude: Pleasant, Cooperative, Guarded (somewhat) Behavior: No unusual behavior Affect: Well Modulated/Appropriate Mood: Euthymic Thought Process/Associations: Logical/Sequential, Goal Directed Speech Production: Normal Speech Rate: Normal Speech Articulation: Normal Thought Content: Suspicious (somewhat), Perseveration Danger to Self/Suicidal Ideati: None Danger to Others: None Delusions: Paranoid (appears to have increased with decreased dose of olanzapine) Hallucinations: Auditory (Denies), Visual (Denies) Consciousness: Alert Orientation: Person, Place, Date, Situation Memory: Grossly Intact Estimate Intellectual Function: Average Attention/Concentration & Cogn: Grossly Intact Insight: None Judgement: Limited Mental Health Plan Sarita is a 65-year-old, female admitted on a 72 hour involuntary hold. Police initially found the body of a man on the porch of their house. 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 He apparently of natural causes several weeks prior. She was initially held in longterm under investigation of a homicide but upon discovering the nature of his [facility]. The patient again reported side effects from olanzapine although they do not appear to be new issues and so the medication had been reduced to 10 mg. The patient remains quite delusional and appears more so since the medication was decreased. As she has not been improving significantly with this medication and is reporting side effects at higher doses, we discussed cross tapering medications. She previously reported side effects from risperidone and so we informed the patient that she will be receiving aripiprazole 5 mg daily. [place] AXIS I Schizophrenia chronic paranoid type AXIS II Defer. AXIS III None. AXIS IV Severe. AXIS V Current global assessment of functioning equal to 30. Medications Olanzapine Zydis 10 mg at bedtime Treatments 1. The patient is admitted to the inpatient unit and will be provided a safe and secure environment. 2. The patient is denying current active suicidality and is not in need of a one-to-one at this time. 3. The patient is encouraged to participate with group and milieu activities. 4. The patient will be seen by the treatment team on a daily basis to assess symptoms, side effects and response to treatment. 5. Continue olanzapine to 10mg. 6. Initiate aripiprazole 5 mg by mouth daily. 7. The patient received a 90 day commitment order on 11/01/2016. 8. The patient is currently on a wait list for [facility].. Terence Brown MD Nov 13, 2016 15:28
[2016-11-13 15:35] VITALS: BP 131/82; PULSE 79; RESP 16
--- NOTE | 2016-11-13 16:28 | NUR ---
Contract Consultant./ c.m. S.:"I'm fine. I'm just tired, sleepy all the time. I'm lazy." O.: met with pt. and MD together in pt.'s room. She was sitting on the edge of her bed and staring into space. She said that "nothing changed" in her mood . She complained about meds and their side effects. She denied SI/HI, denied AH/VH, denied paranoid/delusional thoughts, denied depression or anxiety. She continued believing that the house where she stayed prior to admission was her house. "You can ask neighbors and they will tell you. There were 5 bodies that kids brought from a freezer." She didn't believe that a man who was bringing her clothes was her son. She was frustrated with MD because MD didn't believe her. She also didn't want to go to [facility] - "It is too far from my home". She didn't think that she had mental health issues. Top Knitter called [facility] and spoke with admission nurse. Pt. is # 21 for overall [facility] waiting list and #3 for [facility] at geriatric unit. Admission nurse will call us if there is a change in the waiting list. Pt. was keeping mostly to herself even if she is in a public area. A.: pt. is cooperative, isolative, quiet, confused, paranoid and delusional. She has a flat affect and looks internally preoccupied. She has poor insight. P.: monitor behavior, monitor meds intake; follow care plan.
--- NOTE | 2016-11-13 20:19 | NUR ---
Observations 1500 to 2130 Pt maintained behavioral control throughout the shift. Pt seems much the same as previous shifts. Pt is guarded, quiet, does not seek interaction. "I can't go in the (group) room, my arm is broken" Pt attended community meeting and set goal to keep pleasing the staff and do what I'm told. Pt self rated mood 8/10. Pt ate 100% of meals and was observed every 15 minutes as ordered.
[2016-11-13] MEDS: OLANZapine Zydis ODT 5 mg Tablet PO SCH (20:45)
--- NOTE | 2016-11-13 20:51 | NUR ---
Pt up in unit upon arrival to unit. PT c/t have delusional thoughts stating " well it was quite at [facility] except for all the screaming at night". Pt appears to have no insight to current condition. When asked about depression, anxiety, SI and HI, pt denied all stating" Why do I get asked that everyday? Pt up for snack and attended group. Pt cooperative and behaviors appropriate. Q15 min safety checks done per protocol, compliant with meds, WCT[facility] sellp, behavior, safety.
--- NOTE | 2016-11-14 13:29 | NUR ---
Drum Straightener./ c.m. S.:"Fine, good..." O.: met with pt. in her room. She slept "fine" last night. She denied SI/HI, denied AH/VH, denied depression or anxiety. She was in and out of her room. She keeps mostly to herself and doesn't socialize with peers. She walks in a regan from time to time "for exercising." A.: pt. is cooperative, isolative, quiet, looks internally preoccupied and has a flat affect. P.: monitor behavior, monitor meds intake, follow care plan.
[2016-11-14 14:17] VITALS: BP 122/89; PULSE 100; RESP 16
--- NOTE | 2016-11-14 14:29 | NUR ---
7-3 Nursing- Patient questioned taking Abilify dose this morning, stating, "I usually don't take any medicines in the morning, its gonna mess me all up", but eventually took the med. Patient up in dining area, eating, watching TV, but mostly keeping to herself with activities. No change in mood or affect.
--- NOTE | 2016-11-14 17:18 | NUR ---
Observations [id number] Pt was asleep upon start of shift. She was noticeably wearing new clothing that she had not previously worn on the unit. Pt also had a bag of clothing packed on her bed in the morning, appearing to be getting ready for discharge. Pt continues to be friendly with staff and peers when approached, but keeps to herself. She continues to not understand why she is here. Pt called her son and daughter today stating she needed a ride as she was being discharged. She attended meals, eating 100%. Pt was observed every 15 minutes of shift as directed.
[2016-11-14] MEDS: OLANZapine Zydis ODT 5 mg Tablet PO SCH (21:18)
--- NOTE | 2016-11-14 22:05 | PCM.PNPSY ---
Subjective Date of Service Nov 14, 2016 Subjective The patient reports that her dizziness is not as bad, but now is reporting indigestion. She stated it may have been due to food. She is reporting no new side effects with aripiprazole. Sleep: 7.25 hours, "fine." Appetite: "good, trying to exercise." Suicidal and homicidal ideation: denies Auditory hallucinations/Visual hallucinations: denies Other Psychotic Symptoms: delusions Anxiety: denies Depression: denies Current Medications Current Medications Aripiprazole 5 mg DAILY PO Last administered on 11/14/16t 08:23; Admin Dose 5 MG ; Start 11/14/16 at 08:30 Mental Status Exam Vital Signs Vital Signs Date Time Temp Pulse Resp B/P Pulse Ox O2 Delivery O2 Flow Rate FiO2 11/14/16 14:17 36.7 100 16 122/89 Appearance: Neat/well groomed Attitude: Pleasant, Cooperative, Guarded (somewhat) Behavior: No unusual behavior Affect: Well Modulated/Appropriate Mood: Euthymic Thought Process/Associations: Logical/Sequential, Goal Directed Speech Production: Normal Speech Rate: Normal Speech Articulation: Normal Thought Content: Suspicious (somewhat), Perseveration Danger to Self/Suicidal Ideati: None Danger to Others: None Delusions: Paranoid (Endorses) Hallucinations: Auditory (Denies), Visual (Denies) Consciousness: Alert Orientation: Person, Place, Date, Situation Memory: Grossly Intact Estimate Intellectual Function: Average Attention/Concentration & Cogn: Grossly Intact Insight: None Judgement: Limited Mental Health Plan Sarita is a 65-year-old, female admitted on a 72 hour involuntary hold. Police initially found the body of a man on the porch of their house. 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 He apparently of natural causes several weeks prior. She was initially held [facility] under investigation of a homicide but upon discovering the nature of his she was transferred to [facility] for evaluation and treatment. The patient is denying new side effects from aripiprazole. Will continue with cross-taper. [place] AXIS I Schizophrenia chronic paranoid type AXIS II Defer. AXIS III None. AXIS IV Severe. AXIS V Current global assessment of functioning equal to 30. Medications Aripiprazole 5mg daily Olanzapine Zydis 10 mg at bedtime Treatments 1. The patient is admitted to the inpatient unit and will be provided a safe and secure environment. 2. The patient is denying current active suicidality and is not in need of a one-to-one at this time. 3. The patient is encouraged to participate with group and milieu activities. 4. The patient will be seen by the treatment team on a daily basis to assess symptoms, side effects and response to treatment. 5. Decrease olanzapine to 5mg. 6. Increase aripiprazole to 10 mg by mouth daily. 7. The patient received a 90 day commitment order on 11/01/2016. 8. The patient is currently on a wait list for [facility].. Terence Brown MD Nov 14, 2016 22:05
--- NOTE | 2016-11-15 01:22 | NUR ---
Observations 1900 to 0700 Pt was in her room for most of the night. Pt first appeared asleep at 20:00 and was observed every 15 minutes through the night as directed.
--- NOTE | 2016-11-15 05:17 | NUR ---
Nursing Note [id number] Pt up in unit upon arrival to shift. No change in pt condition or affect noted. Minimal interactions noted with peers and staff. Pt up for meals and braydon snack and group. Pt denies anxiety, depression, SI, HI. Pt compliant with HS meds, with sleep time noted 2200. Q15 min safety checks done per protocol, no distress noted. Pt slept 7 plus hr uninterrupted sleep. WCTM sleep, safety, behavior
[2016-11-15] MEDS ORDERED: ARIPiprazole 10 mg Tablet PO SCH (08:30)
[2016-11-15 10:35] VITALS: BP 131/88; PULSE 98; RESP 16
--- NOTE | 2016-11-15 13:52 | NUR ---
Nursing Note [id number] Behavior S/O: Pt has good appetite. VS stable. Pt out in the milieu briefly. Only speaks in 1-2 word sentences when answering or making a request. Pleasant & cooperative. Involved with groups. A: Pt con't to be guarded & suspicious. P: Provide supportive environment. Monitor medications & effects.
--- NOTE | 2016-11-15 16:56 | PCM.PNPSY ---
Subjective Date of Service Nov 15, 2016 Subjective The patient reports feeling "a little dizzy" this morning but otherwise feels more alert. She stated that she still feels somewhat drowsy from the aripiprazole. She continues to reference delusional material but was able to talk about her family, albeit with a pause before acknowledging that her son had visited twice. She went on to talk about someone telling her daughter that her daughter could not orange picker the patient from the hospital when the patient called to be picked up. It was unclear under what context this occurred. Sleep: 8+ hours. Appetite: "Good, hungry." Suicidal and homicidal ideation: Denies Auditory hallucinations/Visual hallucinations: Denies Other Psychotic Symptoms: As above Anxiety: Denies Depression: Denies Current Medications Current Medications Aripiprazole 5 mg DAILY PO Last administered on 11/14/16 08:23; Admin Dose 5 MG ; Start 11/14/16 at 08:30; Stop 11/14/16 at 22:07; Status DC Aripiprazole 10 mg DAILY PO Last administered on 11/15/16 08:12; Admin Dose 10 MG; Start 11/15/16 at 08:30; Stop 11/15/16 at 15:01; Status DC Mental Status Exam Vital Signs Vital Signs Date Time Temp Pulse Resp B/P Pulse Ox O2 Delivery O2 Flow Rate FiO2 11/15/16 10:35 36.5 98 16 131/88 Appearance: Neat/well groomed Attitude: Pleasant, Cooperative, Guarded (somewhat) Behavior: No unusual behavior Affect: Well Modulated/Appropriate Mood: Euthymic Thought Process/Associations: Logical/Sequential, Goal Directed Speech Production: Normal Speech Rate: Normal Speech Articulation: Normal Thought Content: Suspicious (somewhat), Perseveration Danger to Self/Suicidal Ideati: None Danger to Others: None Delusions: Paranoid (Endorses) Hallucinations: Auditory (Denies), Visual (Denies) Consciousness: Alert Orientation: Person, Place, Date, Situation Memory: Grossly Intact Estimate Intellectual Function: Average Attention/Concentration & Cogn: Grossly Intact Insight: Limited Judgement: Limited Mental Health Plan Sarita is a 65-year-old, female admitted on a 72 hour involuntary hold. Police initially found the body of a man on the porch of their house. 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 He apparently of natural causes several weeks prior. She was initially held in [facility] under investigation of a homicide but upon discovering the nature of his she was transferred to [facility] for evaluation and treatment. The patient is reporting some drowsiness from aripiprazole and was agreeable to bedtime. The patient was more open today about discussing outpatient treatment but ultimately declined. Will continue with cross-taper. [place] AXIS I Schizophrenia chronic paranoid type AXIS II Defer. AXIS III None. AXIS IV Severe. AXIS V Current global assessment of functioning equal to 30. Medications Aripiprazole 10mg daily Olanzapine Zydis 5 mg at bedtime Treatments 1. The patient is admitted to the inpatient unit and will be provided a safe and secure environment. 2. The patient is denying current active suicidality and is not in need of a one-to-one at this time. 3. The patient is encouraged to participate with group and milieu activities. 4. The patient will be seen by the treatment team on a daily basis to assess symptoms, side effects and response to treatment. 5. Olanzapine 5mg by mouth at bedtime. 6. Move aripiprazole 10 mg by mouth daily to bedtime. 7. The patient received a 90 day commitment order on 11/01/2016. 8. The patient is currently on a wait list for [facility].. Terence Brown MD Nov 15, 2016 16:56
--- NOTE | 2016-11-15 18:47 | NUR ---
Paying Teller/Counselor: S/O: Patient slept 8 hours last night as per staff. She denies S/I and H/I. She denies auditory and visual hallucinations. Depression is 0/10 and anxiety is 0/10. A: Patient is cooperative, pleasant, suspicious, euthymic, paranoid, limited insight, limited judgment. P: Follow care plan, coordinate out-patient providers.
--- NOTE | 2016-11-16 04:52 | NUR ---
nursing, nights, 11-7 s/o- has appeared to sleep after 2014 during q 15 minute assessments. a- no apparent distress. p- monitor behavior/emotional state, quality, times and amount of sleep, use and effect of medication. betty
[2016-11-16 09:30] VITALS: BP 139/86; PULSE 85; RESP 16
--- NOTE | 2016-11-16 16:28 | NUR ---
Nursing Dayshift: S: "I'm going to finish coloring pictures." O: Patient's goal for the day. Has been coloring often throughout the shift. Watching a movie at present with peers. Not much interaction with peers. Pleasant with staff on approach. Eating well at meals. A: Approachable. Participating in group activities. P: CPOC. Monitor mood and behavior.
--- NOTE | 2016-11-16 17:47 | NUR ---
Observations 0900 to 2130 Pt affect and mood was flat, isolative, walking/pacing hallway and keeps to herself. Pt speech was ok. Pt eye contact was ok. Pt attended community meeting and set a daily goal. Pt rated her mood a 8/10, with 10 being the best. Pt was minimally social with staff and select peers when approached. Pt continues to give short responses when approached. Pt attended meals in D[employer]. and ate 100% of her meals. Pt maintained behavior throughout the shift. Pt was polite, pleasant and cooperative. Pt was in her room during free time and keeps to herself. Pt watched a little bit of TV. Pt was observed every 15 minutes throughout the shift as ordered. Pt is currently watching TV with peers.
--- NOTE | 2016-11-16 23:37 | PCM.PNPSY ---
Subjective Date of Service Nov 16, 2016 Subjective The patient reports feeling more awake today with decreased dizziness. Patient reports otherwise having no side effects to medications. Agrees to continue with current treatment plan. Sleep: 10.5 hours Appetite: good Suicidal and homicidal ideation: denies Auditory hallucinations/Visual hallucinations: denies Other Psychotic Symptoms: ongoing delusions Anxiety/Depression: denies Current Medications Current Medications Aripiprazole 10 mg DAILY PO Last administered on 11/15/16 08:12; Admin Dose 10 MG; Start 11/15/16 at 08:30; Stop 11/15/16 at 15:01; Status DC Olanzapine 5 mg HS PO Last administered on 11/15/16 21:27; Admin Dose 5 MG; Start 11/15/16 at 21:00 Mental Status Exam Appearance: Neat/well groomed Attitude: Pleasant, Cooperative, Guarded (somewhat) Behavior: No unusual behavior Affect: Well Modulated/Appropriate Mood: Euthymic Thought Process/Associations: Logical/Sequential, Goal Directed Speech Production: Normal Speech Rate: Normal Speech Articulation: Normal Thought Content: Suspicious (somewhat), Perseveration Danger to Self/Suicidal Ideati: None Danger to Others: None Delusions: Paranoid (Endorses) Hallucinations: Auditory (Denies), Visual (Denies) Consciousness: Alert Orientation: Person, Place, Date, Situation Memory: Grossly Intact Estimate Intellectual Function: Average Attention/Concentration & Cogn: Grossly Intact Insight: Limited Judgement: Limited Mental Health Plan Sarita is a 65-year-old, female admitted on a 72 hour involuntary hold. Police initially found the body of a man on the porch of their house. 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 He apparently of natural causes several weeks prior. She was initially held [facility] under investigation of a homicide but upon discovering the nature of his she was transferred to [facility] for evaluation and treatment. The patient is reporting improved drowsiness with medication changes. No apparent worsening so far of symptoms. [place] AXIS I Schizophrenia chronic paranoid type AXIS II Defer. AXIS III None. AXIS IV Severe. AXIS V Current global assessment of functioning equal to 30. Medications Aripiprazole 10mg at bedtime Olanzapine Zydis 5 mg at bedtime Treatments 1. The patient is admitted to the inpatient unit and will be provided a safe and secure environment. 2. The patient is denying current active suicidality and is not in need of a one-to-one at this time. 3. The patient is encouraged to participate with group and milieu activities. 4. The patient will be seen by the treatment team on a daily basis to assess symptoms, side effects and response to treatment. 5. Olanzapine 5mg by mouth at bedtime, discontinue after tonight's dose. 6. Aripiprazole 10 mg by mouth at bedtime. 7. The patient received a 90 day commitment order on 11/01/2016. 8. The patient is currently on a wait list for [facility]. Terence Brown MD Nov 16, 2016 19:24
[2016-11-17 10:19] VITALS: BP 134/90; PULSE 95; RESP 16
--- NOTE | 2016-11-17 14:35 | NUR ---
Nursing Dayshift: S: "I'm going to do a lot of reading." O: Patient's goal for the day. Has been noted to be reading in her room off and on throughout the shift. Out of her room for meals with a good appetite and for group activities. Pleasant on approach. Denies anxiety, depression, harmful thoughts, and hallucinations. A: Approachable. Flat affect though brightens with interaction. P: CPOC. Monitor mood and behavior.
--- NOTE | 2016-11-17 14:53 | PCM.PNPSY ---
Subjective Date of Service Nov 17, 2016 Subjective The patient reports feeling much more alert today and has no significant drowsiness and dizziness. Reported some slowness this morning, but otherwise having no side effects to medications. Patient is agreeable to take medications at the current time but is concerned about cost in the community. She is concerned about her lack of identification or certificate. She reports having been born in [place] in [place]. She agrees to continue with current treatment plan. Sleep: 8+ hours Appetite: good Suicidal and homicidal ideation: denies Auditory hallucinations/Visual hallucinations: denies Other Psychotic Symptoms: ongoing delusions Anxiety/Depression: denies Current Medications Current Medications Aripiprazole 10 mg HS PO Last administered on 11/16/16 20:55; Admin Dose 10 MG; Start 11/16/16 at 21:00 Olanzapine 5 mg HS PO Last administered on 11/16/16 20:55; Admin Dose 5 MG; Start 11/15/16 at 21:00; Stop 11/16/16 at 23:38; Status DC Mental Status Exam Vital Signs Vital Signs Date Time Temp Pulse Resp B/P Pulse Ox O2 Delivery O2 Flow Rate FiO2 11/17/16 10:19 36.8 95 16 134/90 Appearance: Neat/well groomed Attitude: Pleasant, Cooperative, Guarded (somewhat) Behavior: No unusual behavior Affect: Well Modulated/Appropriate Mood: Euthymic Thought Process/Associations: Logical/Sequential, Goal Directed Speech Production: Normal Speech Rate: Normal Speech Articulation: Normal Thought Content: Suspicious (somewhat), Perseveration Danger to Self/Suicidal Ideati: None Danger to Others: None Delusions: Paranoid (Endorses) Hallucinations: Auditory (Denies), Visual (Denies) Consciousness: Alert Orientation: Person, Place, Date, Situation Memory: Grossly Intact Estimate Intellectual Function: Average Attention/Concentration & Cogn: Grossly Intact Insight: Limited Judgement: Limited Mental Health Plan Sarita is a 65-year-old, female admitted on a 72 hour involuntary hold. Police initially found the body of a man on the porch of their house. 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 He apparently of natural causes several weeks prior. [facility] was [facility] held [facility] investigation of a homicide but upon discovering the nature of his she was transferred to [facility] for evaluation and treatment. The patient is reporting improved drowsiness with medication changes. No apparent worsening so far of symptoms. [place] AXIS I Schizophrenia chronic paranoid type AXIS II Defer. AXIS III None. AXIS IV Severe. AXIS V Current global assessment of functioning equal to 30. Medications Aripiprazole 10mg at bedtime Olanzapine Zydis 5 mg at bedtime Treatments 1. The patient is admitted to the inpatient unit and will be provided a safe and secure environment. 2. The patient is denying current active suicidality and is not in need of a one-to-one at this time. 3. The patient is encouraged to participate with group and milieu activities. 4. The patient will be seen by the treatment team on a daily basis to assess symptoms, side effects and response to treatment. 5. Discontinue olanzapine. 6. Aripiprazole 10 mg by mouth at bedtime. 7. The patient received a 90 day commitment order on 11/01/2016. 8. The patient is currently on a wait list for [facility]. Terence Brown MD Nov 17, 2016 14:53
--- NOTE | 2016-11-17 17:18 | NUR ---
Observations 0900 to 2130 Pt affect and mood was flat, isolative and somewhat guarded. Pt speech and eye contact was ok. Pt attended community meeting and set a daily goal. Pt was minimally social with staff and select peers when approached. Pt continues to give short responses when approached. Pt attended meals in [facility] and ate 100% of her meals. Pt maintained behavior throughout the shift. Pt was polite, pleasant and cooperative. Pt was in her room during free time and keeps to herself. Pt watched a little bit of TV and read newspaper. Pt stated "can I get some paper, I;m writing a book" Pt was observed every 15 minutes throughout the shift as ordered.
--- NOTE | 2016-11-18 06:09 | NUR ---
Nursing Noc Pt has appeared to go to sleep at 2145 and remained asleep throughout the night. No apparent distress. 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 monitor behavior/emotional state, quality, times and amount of sleep, use and effect of medication.
[2016-11-18 10:41] VITALS: BP 134/95; PULSE 96; RESP 16
--- NOTE | 2016-11-18 14:22 | NUR ---
Observations 0700 to 1900 Pt affect and mood was same as previous days on the unit. Pt is guarded and isolative. Pt speech and eye contact was ok. Pt attended community meeting and set a daily goal. Pt was minimally social with staff and select peers when approached. Pt continues to give short responses when approached. Pt attended meals in [facility]. and ate 100% of her meals. Pt maintained behavior throughout the shift. Pt was polite, pleasant and cooperative. Pt was in her room during free time and keeps to herself. Pt was observed every 15 minutes throughout the shift as ordered.
--- NOTE | 2016-11-18 17:44 | PCM.PNPSY ---
Subjective Date of Service Nov 18, 2016 Subjective The patient reports feeling much more alert today and has no significant drowsiness and dizziness. The patient was given information about how to obtain certificate and she stated that she should be able to get the $28 from her son. She states that this is not actually her son but that he " adopted her." She stated that she was somewhat wary to say anything as she did not want to be used against her. She stated that she may be able to stay with one of her family members and agreed to look into this further. She agrees to continue with current treatment plan. Sleep: 6+ hours Appetite: good Suicidal and homicidal ideation: denies Auditory hallucinations/Visual hallucinations: denies Other Psychotic Symptoms: ongoing delusions Anxiety/Depression: denies Current Medications Current Medications Aripiprazole 10 mg HS PO Last administered on 11/17/16t 19:59; Admin Dose 10 MG ; Start 11/16/16 at 21:00 Mental Status Exam Vital Signs Vital Signs Date Time Temp Pulse Resp B/P Pulse Ox O2 Delivery O2 Flow Rate FiO2 11/18/16 10:41 36.4 96 16 134/95 Appearance: Neat/well groomed Attitude: Pleasant, Cooperative, Guarded Behavior: No unusual behavior Affect: Well Modulated/Appropriate Mood: Euthymic Thought Process/Associations: Logical/Sequential, Goal Directed Speech Production: Normal Speech Rate: Normal Speech Articulation: Normal Thought Content: Suspicious, Perseveration Danger to Self/Suicidal Ideati: None Danger to Others: None Delusions: Paranoid (Endorses) Hallucinations: Auditory (Denies), Visual (Denies) Consciousness: Alert Orientation: Person, Place, Date, Situation Memory: Grossly Intact Estimate Intellectual Function: Average Attention/Concentration & Cogn: Grossly Intact Insight: Limited Judgement: Limited Mental Health Plan Sarita is a 65-year-old, female admitted on a 72 hour involuntary hold. Police initially found the body of a man on the porch of their house. 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 He apparently of natural causes several weeks prior. She was [facility] held [facility] prison under investigation of a homicide but upon discovering the nature of his she was transferred to [facility] for evaluation and treatment. The patient is reporting improved drowsiness with medication changes. The patient appears to have increased insight into her illness and willingness to look at having family assist her. [place] AXIS I Schizophrenia chronic paranoid type AXIS II Defer. AXIS III None. AXIS IV Severe. AXIS V Current global assessment of functioning equal to 30. Medications Aripiprazole 10mg at bedtime Treatments 1. The patient is admitted to the inpatient unit and will be provided a safe and secure environment. 2. The patient is denying current active suicidality and is not in need of a one-to-one at this time. 3. The patient is encouraged to participate with group and milieu activities. 4. The patient will be seen by the treatment team on a daily basis to assess symptoms, side effects and response to treatment. 5. Aripiprazole 10 mg by mouth at bedtime. 6. The patient received a 90 day commitment order on 11/01/2016. 7. The patient is currently on a wait list for [facility]. Terence Brown MD Nov 18, 2016 17:44
--- NOTE | 2016-11-18 18:34 | NUR ---
NURS DAY Orientation: Oriented to person, place, and time. Poorly oriented to situation. "My neighbors sent me here to be analyzed." Mood: "I'm fine. Im not worrying about anything." Denies anxiety and depression. Affect: Appropriate, pleasant. Behavior: Pt in and out of day room all shift. 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 Thought Process/Content: Linear, internally-logical, bizzarre. "The chicken they serve here is rubbery. It's those sea chickens. They raise them by the ocean. They eat the mud and splash in the waves." Denies suicidal and homicidal ideation. Nursing Note/PRN: 600 mg ibuprofen for back pain, "effective."
--- NOTE | 2016-11-18 18:50 | NUR ---
Final Cleaner./ c.m. S.:"Feeling pretty good." O.: met with pt. and MD together. Pt. was in and out of her room, walking in a regan occasionally. She denied SI/HI, denied AH/VH, denied depression or anxiety. She said that she had "less side effects" and she felt "less woozy". She had difficulty identifying her son. She continued thinking about the house as her own as well as a "l[place] mine" under the house. She keeps mostly to herself. A.: pt. is cooperative, quiet, isolative, paranoid and delusional. P.: monitor behavior, follow care plan.
--- NOTE | 2016-11-19 05:38 | NUR ---
Nursing Noc "my writers name is Jose Manuel Conley". Pt remains isolative with poor insight this evening. Reports nasal congestion and lower back pain which is being controlled with PO medications. First noted to be asleep at 2144 and has remained asleep throughout the shift. Continuing monitor behavior/emotional state, quality, times and amount of sleep, use and effect of medication.
[2016-11-19 10:45] VITALS: BP 154/88; PULSE 88; RESP 16
[2016-11-19] MEDS: Benzocaine-Menthol Lozenge 2/Pkg PO PRN (12:49)
--- NOTE | 2016-11-19 16:57 | NUR ---
DAY Orientation: x3. Poorly oriented to situation. Mood: "I'm good." I wish I would stop sneezing and blowing my nose and coughing. Affect: Appropriate. Behavior: Pt spent much of day in room. Thought Process/Content: Linear. Bizarre delusions. Nursing Note/PRN: Pt reports sinus congestion, sore throat, and runny nose. Encouraged salt water gargle. Given Cepacol lozenge for sore throat and 600 mg ibuprofen for back pain at 1250. Addendum: 11/19/16 at 5218 by FAB SMITH RN Amended: Links added.
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
--- NOTE | 2016-11-19 18:28 | NUR ---
[facility] Day Shift Pt affect and behavior unchanged from previous shifts. Pt maintained behavior control throughout the shift. Pt affect appears mostly flat. Pt spends most of the shift resting in her room, occasionally participating in unit activities and interacting lightly with peers in the dining room. Pt is not overly social with staff and peers when active on the unit, but is appropriate when engaged. Pt did not attend community meeting or group activities throughout the shift. Pt attended all meals and ate approx 100% of all meals.
--- NOTE | 2016-11-20 05:30 | NUR ---
Nursing Noc Pt continues to keep to self. She did spend some time out in the dining room and was present for evening group. Maintains behavioral control. Took scheduled medication and retired to bed early. Pt has remained asleep since 2129 with no noted distress or awakening per protocol checks. Total sleep over 8 hours.
[2016-11-20] MEDS: Benzocaine-Menthol Lozenge 2/Pkg PO PRN (12:48)
[2016-11-20 13:40] VITALS: BP 123/85; PULSE 99; RESP 16
--- NOTE | 2016-11-20 15:06 | PCM.PNPSY ---
Subjective Date of Service Nov 20, 2016 Subjective I spent 20 minutes both reviewing treatment plan and providing supportive/ educational psychotherapy. I spent more than 50% of the time counseling the patient. I reviewed the treatment plan with the patient and discussed options available including the potential risks, benefits and side effects. Sarita reports no difficulty with thought organization and or mood stability. Staff reports that she has participating minimally in one-to-one unit and group activities. She slept 7.5 hours and denies depression manic or psychotic symptoms review. 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 She believes that the previous house that she was staying out and working as hers and that is [place] a [place]. She believes there is nothing wrong and she wishes to leave. She sees no reason that she should be on psychiatric medications. She denies medication side effects except for some sedation. Patient was not able to identify her medications nor what they were used to treat. She did not appear to understand the need for medications. Mental Status Exam Vital Signs Vital Signs Date Time Temp Pulse Resp B/P Pulse Ox O2 Delivery O2 Flow Rate FiO2 11/20/16 13:40 36.6 99 16 123/85 Appearance: Neat/well groomed Attitude: Pleasant, Cooperative, Guarded Behavior: No unusual behavior Affect: Well Modulated/Appropriate Mood: Euthymic Thought Process/Associations: Logical/Sequential, Goal Directed Speech Production: Normal Speech Rate: Normal Speech Articulation: Normal Thought Content: Suspicious, Perseveration Danger to Self/Suicidal Ideati: None Danger to Others: None Delusions: Paranoid (Endorses) Hallucinations: Auditory (Denies) Consciousness: Alert Orientation: Person, Place, Date, Situation Memory: Grossly Intact Estimate Intellectual Function: Average Attention/Concentration & Cogn: Grossly Intact Insight: Limited Judgement: Limited Mental Health Plan Sarita is a 65-year-old, white female, admitted initially on a 72 hour involuntary treatment hold after police found the body of the client. 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 He had apparently of natural causes several weeks ago. She is still reporting delusional content, it appears to be slowly improving over time. She appears more positive regarding family. She is more open to receiving assistance. Sarita is making slow but steady progress. At this point due to her thought Disorganization and delusional themes I do not believe she is able to advocate for herself and safely attend to activities of daily living. [place] AXIS I Schizophrenia chronic paranoid type AXIS II Defer. AXIS III None. AXIS IV Severe. AXIS V Current global assessment of functioning equal to 30. Medications Aripiprazole 10mg at bedtime Treatments 1. The patient is admitted to the inpatient unit and will be provided a safe and secure environment. 2. The patient is denying current active suicidality and is not in need of a one-to-one at this time. 3. The patient is encouraged to participate with group and milieu activities. 4. The patient will be seen by the treatment team on a daily basis to assess symptoms, side effects and response to treatment. 5. Continue aripiprazole 10 mg by mouth at bedtime. 6. The patient received a 90 day commitment order on 11/01/2016. 7. The patient is currently on a wait list for [facility]. Matt Rabago MD Nov 20, 2016 15:06
--- NOTE | 2016-11-20 15:34 | NUR ---
Nursing: Day shift: S: My family is arranging a home for me, a one bedroom apartment. I will have to stay there. O: Sarita is groomed and dressed more neatly than earlier in admission. She is pleasant on approach. Her familiarity with unit routines allows her to participate in groups and be out on the unit for snacks and meals. No complaints or requests. Denies anxiety, depression or SI. Takes scheduled meds as offered. Denied any knowledge about possibility of going anywhere else than her "one bedroom apartment". A: Remains without any insight as to why she is on this mental health unit. P: Support pt as she awaits placement. Addendum: 11/20/16 at 1557 by ANA MARIA HUFF RN Amended: Links added.
--- NOTE | 2016-11-20 17:07 | NUR ---
Obs Dayshift [id number] Pt spends a lot of her time in her room, stating that she has a cold and doesn't want to get others sick. Today she stated that she is feeling slightly better, less cough. Pt continues to talk to respond to IS, having conversations w/ unseen others in her room. Pt is calm, co-operative. Pt is mostly only participating in morning group and wrap up, occasionally will join for a short time in art groups. Pt continues to zuri items in her room, food, pens, markers, etc. Poor ADL's, Good meals
--- NOTE | 2016-11-21 00:59 | NUR ---
Observations 1900 to 0700 Pt was in her room for most of the night. Pt first appeared asleep at 21:30 and was observed every 15 minutes through the night as directed.
--- NOTE | 2016-11-21 05:51 | NUR ---
Nursing Note evening or night nurse supervisor 7pm to 7am Pt visible in common area this evening, affect and mood bright, hygiene and appetite adequate. Sitting among peers making small talk. Pt remains with poor insight as to why she is in on the unit. Reported when she is discharged she will be going to an apartment her family is arranging for her. Pt denies A/VH. Denies depression or anxiety. Pt took HS meds and slept through the night without interruptions. Monitored q 15 minutes for safety, location and accountability.
[2016-11-21 11:03] VITALS: BP 125/94; PULSE 95; RESP 16
--- NOTE | 2016-11-21 14:21 | PCM.PNPSY ---
Subjective Date of Service Nov 21, 2016 Subjective I spent 20 minutes both reviewing treatment plan and providing supportive/ educational psychotherapy. I spent more than 50% of the time counseling the patient. Sarita reports no difficulty . Staff reports that she has participated minimally in one-to-one unit and group activities. She slept 6.5 hours and denies depression manic or psychotic symptoms review. 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 She believes that the previous house that she was staying out and working as hers and that is [place]. She believes there is nothing wrong and she wishes to leave. She sees no reason that she should be on psychiatric medications. She denies medication side effects except for some sedation. Patient was not able to identify her medications nor what they were used to treat. She did not appear to understand the need for medications. Mental Status Exam Vital Signs Vital Signs Date Time Temp Pulse Resp B/P Pulse Ox O2 Delivery O2 Flow Rate FiO2 11/21/16 11:03 36.2 95 16 125/94 Appearance: Neat/well groomed Attitude: Pleasant, Cooperative, Guarded Behavior: No unusual behavior Affect: Well Modulated/Appropriate Mood: Euthymic Thought Process/Associations: Logical/Sequential, Goal Directed Speech Production: Normal Speech Rate: Normal Speech Articulation: Normal Thought Content: Suspicious, Perseveration Danger to Self/Suicidal Ideati: None Danger to Others: None Delusions: Paranoid (Endorses) Hallucinations: Auditory (Denies) Consciousness: Alert Orientation: Person, Place, Date, Situation Memory: Grossly Intact Estimate Intellectual Function: Average Attention/Concentration & Cogn: Grossly Intact Insight: Limited Judgement: Limited Mental Health Plan Sarita is a 65-year-old, white female, admitted initially on a 72 hour involuntary treatment hold after police found the body of the client. 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 He had apparently of natural causes several weeks ago. She is still reporting delusional content, it appears to be slowly improving over time. She appears more positive regarding family. She is more open to receiving assistance. Sarita is making slow but steady progress. At this point due to her thought Disorganization and delusional themes I do not believe she is able to advocate for herself and safely attend to activities of daily living. She appeared more bright and appeared to have better thought organization today. She appears to be having a good response to switching from Zyprexa's to Abilify [place] AXIS I Schizophrenia chronic paranoid type AXIS II Defer. AXIS III None. AXIS IV Severe. AXIS V Current global assessment of functioning equal to 35. Medications Aripiprazole 10mg at bedtime Treatments 1. The patient is admitted to the inpatient unit and will be provided a safe and secure environment. 2. The patient is denying current active suicidality and is not in need of a one-to-one at this time. 3. The patient is encouraged to participate with group and milieu activities. 4. The patient will be seen by the treatment team on a daily basis to assess symptoms, side effects and response to treatment. 5. Continue aripiprazole 10 mg by mouth at bedtime. 6. The patient received a 90 day commitment order on 11/01/2016. 7. The patient is currently on a wait list for [facility]. Matt Rabago MD Nov 21, 2016 14:21
--- NOTE | 2016-11-21 14:28 | NUR ---
Obs Dayshift Pt is polite, quiet, keeps to herself. Slightly less isolating in her room, but continues be spend time in there talking w/ unseen others and "organizing" her things. Pt states that she is feeling better each day and getting over her cold. Pt will sit in the DR and watch TV or read the paper, little to no engagement w/ peers. Pt does attend some groups, but will not stay for the whole. Good ADL's, Good meals
--- NOTE | 2016-11-21 14:56 | NUR ---
Instrument Maker./ c.m. S.:"I'm feeling better today. My head is not as cloudy as yesterday." O.: met with pt. to discuss her progress. She had broken sleep last night. She felt physically "better" today. "I think I'm over my cold now." She denied SI/HI, denied AH/VH or paranoid/delusional thoughts, denied depression or anxiety. She said that she was "working" on her "book" today and she "wrote 5 pages". She was pleased to hear that MD wanted to read her writing. Health Care Facility Administrator made a copy of a page with pt.'s permission. She was in and out of her room but she was keeping mostly to herself. A.: pt. is cooperative, pleasant, quiet, looks internally preoccupied. P.: monitor behavior, follow care plan.
--- NOTE | 2016-11-21 18:51 | NUR ---
Nursing: Day shift: S: I have a letter that I need stamps for so I can get a certificate to get on Medicaid. 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 She was quiet on the open unit. Offered a shower but she declined. Still stating that her family will get her a one bedroom home on discharge. She denied any SI, depression, or anxiety. When asked about progress she was making on getting health insurance, she went to her room and produced an envelope with a form for her certificate that she had filled out and wanted mailed. Acted in a purposeful manner about what she had done on this. A: Does not understand why she is here. Able to perform goal directed activity r/t certificate. P: Continue to assess for med effectiveness.
[2016-11-22 12:01] VITALS: BP 134/81; PULSE 89; RESP 17
--- NOTE | 2016-11-22 12:41 | PCM.PNPSY ---
Subjective Date of Service Nov 22, 2016 Subjective I spent 30 minutes both reviewing treatment plan and providing supportive/ educational psychotherapy. I spent more than 50% of the time counseling the patient. Sarita reports no difficulty . Staff reports that she has participated minimally in one-to-one unit and group activities. She slept 6.5 hours and denies depression manic or psychotic symptoms review. 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 She believes there is nothing wrong and she wishes to leave. She sees no reason that she should be on psychiatric medications. She denies medication side effects except for some sedation. Patient was not able to identify her medications nor what they were used to treat. She did not appear to understand the need for medications. 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 She has multiple folders full of semi-fiction semi- historical stories. The writing is organized legible and highly imaginative. She appears to be reconstituting her cognitive executive functioning. Mental Status Exam Vital Signs Vital Signs Date Time Temp Pulse Resp B/P Pulse Ox O2 Delivery O2 Flow Rate FiO2 11/22/16 12:01 36.5 89 17 134/81 Appearance: Neat/well groomed Attitude: Pleasant, Cooperative Behavior: No unusual behavior Affect: Well Modulated/Appropriate Mood: Euthymic Thought Process/Associations: Logical/Sequential, Goal Directed Speech Production: Normal Speech Rate: Normal Speech Articulation: Normal Thought Content: Suspicious, Perseveration Danger to Self/Suicidal Ideati: None Danger to Others: None Delusions: Paranoid (Endorses) Consciousness: Alert Orientation: Person, Place, Date, Situation Memory: Grossly Intact Estimate Intellectual Function: Average Attention/Concentration & Cogn: Grossly Intact Insight: Limited Judgement: Limited Mental Health Plan Sarita is a 65-year-old, white female, admitted initially on a 72 hour involuntary treatment hold after police found the body of the client. 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 He had apparently of natural causes several weeks ago. She is still reporting delusional content, but it appears to be slowly improving over time. She appears more positive regarding family. She is more open to receiving assistance. Sairta is making slow but steady progress. At this point due to her thought Disorganization and delusional themes I do not believe she is able to advocate for herself and safely attend to activities of daily living. She appeared more bright and appeared to have better thought organization today. She appears to be having a good response to Abilify. Patient was not able to identify her medications nor what they were used to treat. She did not appear to understand the need for medications. 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 She has multiple folders full of semi-fiction semi- historical stories. The writing is organized legible and highly imaginative. She appears to be reconstituting her cognitive executive functioning. [place] AXIS I Schizophrenia chronic paranoid type AXIS II Defer. AXIS III None. AXIS IV Severe. AXIS V Current global assessment of functioning equal to 35. Medications Aripiprazole 10mg at bedtime Treatments 1. The patient is admitted to the inpatient unit and will be provided a safe and secure environment. 2. The patient is denying current active suicidality and is not in need of a one-to-one at this time. 3. The patient is encouraged to participate with group and milieu activities. 4. The patient will be seen by the treatment team on a daily basis to assess symptoms, side effects and response to treatment. 5. Continue aripiprazole 10 mg by mouth at bedtime. 6. The patient received a 90 day commitment order on 11/01/2016. 7. The patient is currently on a wait list for [facility]. Matt Rabago MD Nov 22, 2016 12:41
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
--- NOTE | 2016-11-22 17:10 | NUR ---
Sportspersons/Counselor: S: "I don't why I should be taking these meds." O: Patient slept 6.5 hours last night as per staff. She denies S/I and H/I. She denies auditory and visual hallucinations. Depression is 0/10 and anxiety is 0/10. A: Patient is cooperative, pleasant, euthymic, suspicious, paranoid, limited insight, limited judgment. P: Follow care plan, coordinate out-patient providers.
--- NOTE | 2016-11-22 18:26 | NUR ---
[facility] Day Shift Pt affect and behavior unchanged from previous shifts. Pt maintained behavior control throughout the shift. Pt affect appears mostly flat. Pt spends most of the shift resting in her room, occasionally participating in unit activities and interacting lightly with peers in the dining room. Pt is not overly social with staff and peers when active on the unit, but is appropriate when engaged. Pt attended community meeting in the AM and lightly participated in group activities throughout the shift. Pt attended all meals and ate approx 100% of all meals.
--- NOTE | 2016-11-23 05:17 | NUR ---
Nursing Noc Pt presents lucid, goal oriented and euthymic. Independent on unit and staying active with writing, crafts or watching TV. Appearance is clean and well groomed. First noted to be asleep at 2215 and has remained asleep throughout the night. Continuing to monitor mood, behavior, emotional state and sleep times. CP
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
[2016-11-23 12:25] VITALS: BP 126/83; PULSE 75; RESP 16
--- NOTE | 2016-11-23 14:08 | PCM.PNPSY ---
Subjective Date of Service Nov 23, 2016 Subjective I spent 20 minutes both reviewing treatment plan and providing supportive/ educational psychotherapy. I spent more than 50% of the time counseling the patient. Sarita reports no difficulty . Staff reports that she has participated minimally in one-to-one unit and group activities and tends to isolate in her room. When I see her in [id number] she is busily writing one of several novels that she is working on. The writing is coherent and reality based. She slept 7 hours and denies depression manic or psychotic symptoms review. 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 She believes there is nothing wrong and she wishes to leave. She sees no reason that she should be on psychiatric medications. She denies medication side effects except for some sedation. Patient was not able to identify her medications nor what they were used to treat. She did not appear to understand the need for medications. She continues to write stories. She has multiple folders full of semi-fiction semi-historical stories. The writing is organized legible and highly imaginative. She appears to be reconstituting her cognitive executive functioning. Mental Status Exam Vital Signs Vital Signs Date Time Temp Pulse Resp B/P Pulse Ox O2 Delivery O2 Flow Rate FiO2 11/23/16 12:25 36.4 75 16 126/83 Appearance: Neat/well groomed Attitude: Pleasant, Cooperative Behavior: No unusual behavior Affect: Well Modulated/Appropriate Mood: Euthymic Thought Process/Associations: Logical/Sequential, Goal Directed Speech Production: Normal Speech Rate: Normal Speech Articulation: Normal Thought Content: Suspicious, Perseveration Danger to Self/Suicidal Ideati: None Danger to Others: None Delusions: Paranoid (Endorses) Consciousness: Alert Orientation: Person, Place, Date, Situation Memory: Grossly Intact Estimate Intellectual Function: Average Attention/Concentration & Cogn: Grossly Intact Insight: Limited Judgement: Limited Mental Health Plan Sarita is a 65-year-old, white female, admitted initially on a 72 hour involuntary treatment hold after police found the body of the client. 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 He had apparently of natural causes several weeks ago. She is still reporting delusional content, but it appears to be slowly improving over time. She appears more positive regarding family. She is more open to receiving assistance. Sarita is making slow but steady progress. At this point due to her thought Disorganization and delusional themes I do not believe she is able to advocate for herself and safely attend to activities of daily living. She appeared more bright and to have better thought organization. She appears to be having a good response to Abilify. 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 She has multiple folders full of semi-fiction semi- historical stories. The writing is organized legible and highly imaginative. She appears to be reconstituting her cognitive executive functioning. 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 She believes there is nothing wrong and she wishes to leave. She sees no reason that she should be on psychiatric medications. [place] AXIS I Schizophrenia chronic paranoid type AXIS II Defer. AXIS III None. AXIS IV Severe. AXIS V Current global assessment of functioning equal to 35. Medications Aripiprazole 10mg at bedtime Treatments 1. The patient is admitted to the inpatient unit and will be provided a safe and secure environment. 2. The patient is denying current active suicidality and is not in need of a one-to-one at this time. 3. The patient is encouraged to participate with group and milieu activities. 4. The patient will be seen by the treatment team on a daily basis to assess symptoms, side effects and response to treatment. 5. Continue aripiprazole 10 mg by mouth at bedtime. 6. The patient received a 90 day commitment order on 11/01/2016. 7. The patient is currently on a wait list for [facility]. Matt Rabago MD Nov 23, 2016 14:08
--- NOTE | 2016-11-23 17:21 | NUR ---
Build And Release Manager/Counselor: S: "Thank you for taking time out of your day to help me." O: Patient slept 7+ hours last night as per staff. She denies S/I and H/I. She denies auditory and visual hallucinations. Depression is 0/10 and anxiety is 0/10. This telegraphic typewriter repairer had patient's certificate application notarized and mailed application, a $28.00 check provided by patient's daughter, and a stamped return envelope to [facility] [employer], [address] [place] [address] [id number] [place] [id number]. A copy of everything mailed is in patient's "Discharge" section of her chart. A: Patient is cooperative, pleasant, euthymic, suspicious, fair insight, fair judgment. P: Follow care plan, coordinate out-patient providers.
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
--- NOTE | 2016-11-24 12:47 | NUR ---
Nursing Dayshift: S: "It's a slow day today." O: Patient out of her room for meals with a good appetite. Ambulating regan at times. Sitting in her room quietly at present. Brightens on approach. Denies anxiety, depression, harmful thoughts, and hallucinations. A: Calm. Cooperative. Some interaction if approached. P: CPOC. Monitor mood and behavior.
--- NOTE | 2016-11-24 13:23 | PCM.PNPSY ---
Subjective Date of Service Nov 24, 2016 Subjective I spent 20 minutes both reviewing treatment plan and providing supportive/ educational psychotherapy. I spent more than 50% of the time counseling the patient. Sarita reports no difficulty . Staff reports that she has participated minimally in one-to-one unit and group activities and tends to isolate in her room. We spoke about one of several novels that she is working on. The writing is coherent and reality based. She slept 8hours and denies depression manic or psychotic symptoms review. 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 She believes there is nothing wrong and she wishes to leave. She sees no reason that she should be on psychiatric medications. She denies medication side effects except for some sedation. Patient was not able to identify her medications nor what they were used to treat. She did not appear to understand the need for medications. She continues to write stories. She has multiple folders full of semi-fiction semi-historical stories. The writing is organized legible and highly imaginative. She appears to be reconstituting her cognitive executive functioning. Mental Status Exam Appearance: Neat/well groomed Attitude: Pleasant, Cooperative Behavior: No unusual behavior Affect: Well Modulated/Appropriate Mood: Euthymic Thought Process/Associations: Logical/Sequential, Goal Directed Speech Production: Normal Speech Rate: Normal Speech Articulation: Normal Thought Content: Suspicious, Perseveration Danger to Self/Suicidal Ideati: None Danger to Others: None Delusions: Paranoid (Endorses) Consciousness: Alert Orientation: Person, Place, Date, Situation Memory: Grossly Intact Estimate Intellectual Function: Average Attention/Concentration & Cogn: Grossly Intact Insight: Limited Judgement: Limited Mental Health Plan Sarita is a 65-year-old, white female, admitted initially on a 72 hour involuntary treatment hold after police found the body of the client. 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 He had apparently of natural causes several weeks ago. She is still reporting delusional content, but it appears to be slowly improving over time. She appears more positive regarding family. She is more open to receiving assistance. Sarita is making slow but steady progress. At this point due to her thought Disorganization and delusional themes I do not believe she is able to advocate for herself and safely attend to activities of daily living. She appeared more bright and to have better thought organization. She appears to be having a good response to Abilify. 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 She has multiple folders full of semi-fiction semi- historical stories. The writing is organized legible and highly imaginative. She appears to be reconstituting her cognitive executive functioning. 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 She believes there is nothing wrong and she wishes to leave. She sees no reason that she should be on psychiatric medications. [place] AXIS I Schizophrenia chronic paranoid type AXIS II Defer. AXIS III None. AXIS IV Severe. AXIS V Current global assessment of functioning equal to 35. Medications Aripiprazole 10mg at bedtime Treatments 1. The patient is admitted to the inpatient unit and will be provided a safe and secure environment. 2. The patient is denying current active suicidality and is not in need of a one-to-one at this time. 3. The patient is encouraged to participate with group and milieu activities. 4. The patient will be seen by the treatment team on a daily basis to assess symptoms, side effects and response to treatment. 5. Continue aripiprazole 10 mg by mouth at bedtime. 6. The patient received a 90 day commitment order on 11/01/2016. 7. The patient is currently on a wait list for [facility]. Matt Rabago MD Nov 24, 2016 13:23
--- NOTE | 2016-11-24 14:12 | NUR ---
Bright Cutter/Counselor: S/O: Patient slept 8.25 hours last night as per staff. She denies S/I and H/I. She denies auditory and visual hallucinations. Depression is 0/10 and anxiety is 0/10. When asked her mood, patient stated, "Pretty good." A: Patient is cooperative, euthymic, suspicious, paranoid, limited insight, limited judgment. P: Follow care plan, coordinate out-patient providers.
[2016-11-24 18:19] VITALS: BP 141/99; PULSE 90; RESP 16
--- NOTE | 2016-11-25 05:42 | NUR ---
Nursing Note Auto Mechanic Supervisor 7p -11pm Pt resting at start of shift. Came out for snack and HS meds. Pt made comment that she overall is a good sleeper, only wakes up a few times at night but is able to go back to sleep without difficulty, I think the medication, referring to the ability, makes me relaxed. Pt with good eye contact is pleasant, calm and cooperative, thoughts logical and linear in conversation, no delusional content observed or elicited. Affect bright and mood euthymic. Insight remains poor, judgement fair. Hygiene and appetite good. Pt is medication compliant, no side effects reported or observed. Monitored q 15 minutes for safety, location and accountability
[2016-11-25 10:55] VITALS: BP 115/74; PULSE 89; RESP 16
--- NOTE | 2016-11-25 13:30 | PCM.PNPSY ---
Subjective Date of Service Nov 25, 2016 Subjective I spent 30 minutes both reviewing treatment plan and providing supportive/ educational psychotherapy. I spent more than 50% of the time counseling the patient. Sarita reports no difficulty . Staff reports that she has now participating in one -to-one unit and group activities but still tends to isolate in her room. We spoke about one of several novels that she is working on. She slept 8hours and denies depression manic or psychotic symptoms review. Mental Status Exam Vital Signs Vital Signs Date Time Temp Pulse Resp B/P Pulse Ox O2 Delivery O2 Flow Rate FiO2 11/25/16 10:55 36.5 89 16 115/74 Appearance: Neat/well groomed Attitude: Pleasant, Cooperative Behavior: No unusual behavior Affect: Well Modulated/Appropriate Mood: Euthymic Thought Process/Associations: Logical/Sequential, Goal Directed Speech Production: Normal Speech Rate: Normal Speech Articulation: Normal Thought Content: Suspicious, Perseveration Danger to Self/Suicidal Ideati: None Danger to Others: None Delusions: Paranoid (Endorses) Consciousness: Alert Orientation: Person, Place, Date, Situation Memory: Grossly Intact Estimate Intellectual Function: Average Attention/Concentration & Cogn: Grossly Intact Insight: Limited Judgement: Limited Mental Health Plan Sarita is a 65-year-old, white female, admitted initially on a 72 hour involuntary treatment hold after police found the body of the client. 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 He had apparently of natural causes several weeks ago. She is still reporting delusional content, but it appears to be slowly improving over time. She appears more positive regarding family. She is more open to receiving assistance. Sarita is making slow but steady progress. At this point due to her thought Disorganization and delusional themes I do not believe she is able to advocate for herself and safely attend to activities of daily living. She appeared more bright and to have better thought organization. She appears to be having a good response to Abilify. 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 She has multiple folders full of semi-fiction semi- historical stories. The writing is organized legible and highly imaginative. She appears to be reconstituting her cognitive executive functioning. 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 She believes there is nothing wrong and she wishes to leave. She sees no reason that she should be on psychiatric medications. [place] AXIS I Schizophrenia chronic paranoid type AXIS II Defer. AXIS III None. AXIS IV Severe. AXIS V Current global assessment of functioning equal to 35. Medications Aripiprazole 10mg at bedtime Treatments 1. The patient is admitted to the inpatient unit and will be provided a safe and secure environment. 2. The patient is denying current active suicidality and is not in need of a one-to-one at this time. 3. The patient is encouraged to participate with group and milieu activities. 4. The patient will be seen by the treatment team on a daily basis to assess symptoms, side effects and response to treatment. 5. Continue aripiprazole 10 mg by mouth at bedtime. 6. The patient received a 90 day commitment order on 11/01/2016. 7. The patient is currently on a wait list for [facility]. Matt Rabago MD Nov 25, 2016 13:30
--- NOTE | 2016-11-25 14:01 | NUR ---
Nursing Dayshift: S: "I'm writing a book. That's why I'm reading out loud. some people probably think I looney. If I read it out loud I can tell if it sounds okay." O: Patient had a stack of paper next to her that appears to be hand written composition. Smiles when making above statement. Affect brightens with interaction. Has been out of her room for meals with a good appetite. Sits in the dining room at times. Not much interaction with peers. Denies anxiety, depression, harmful thoughts, and hallucinations. A: Calm. Cooperative. A little more animated. P: CPOC. Monitor mood and behavior.
--- NOTE | 2016-11-25 18:32 | NUR ---
Observations 0700 to 1900 Pt maintained behavioral control throughout the shift. Pt seemed unchanged from previous shifts. Pt is bright when engaged by staff but does not initiate interaction. Pt attended some community activities but mostly isolated in room during day. Pt ate 100% of meals and was observed every 15 minutes as ordered.
--- NOTE | 2016-11-25 18:54 | NUR ---
Claim Approver./ c.m. S.:"I don't feel well. I hope I don't have tuberculosis. I am complaining about people upstairs. They are talking very loud and stumping their feet in the middle of the night or at 5:00 am in the morning. I can't sleep well. I wake up right away from their noise!" O.; met with pt. in her room. She was sitting on her bed with her notebook open. She closed her notebook as soon as she saw the web content writer. Pt. complained about "people above" who were "walking, working, talking loud in the middle of the night or early in the morning". She didn't sleep well last night because of her coughing and "a noise above". She denied SI/HI, denied AH/VH or paranoid/delusional thoughts. She didn't want to share her writing. She didn't want to go on a patio with peers because she "wanted to get ahead" with her writing. She was in and out of her room, walking in a regan sometimes. She keeps to herself most of the time. A.: pt. is cooperative, isolative, pleasant, confused and internally preoccupied. P.: monitor behavior, monitor meds intake; follow care plan.
--- NOTE | 2016-11-26 02:31 | NUR ---
Nursing Note Evening Shift 7pm to 11pm Pt watching tv in day room at start of shift, well-groomed with bright affect, smile at this movie writer when walked by, mood euthymic. She is calm, pleasnt and cooperative. She has made superficial connections with peers. Makes few requests of staff and has no complaints. She appears to have adjusted well to the unit and stated " I am just waiting to be discharge to an apartment". Pt reports Depression a 2, anxiety a 3. She has been keeping herself occupied by writing in her journal. She reported she is writing a story about her life and agreed to let movie writer read it at a later date. No delusional themes ellicited or reported this shift but pt clearly becomes guarded and suspicious if attempting to assess or offer more than small talk. Monitoring q 15 minutes for safety location and accountability.
--- NOTE | 2016-11-26 05:30 | NUR ---
nursing, nights, 11-7 s/o- has appeared to sleep after 2129 during q 15 minute assessments. a- no apparent distress. p- monitor behavior/emotional state, quality, times and amount of sleep, use and effect of medication. betty
[2016-11-26 09:00] VITALS: BP 132/86; PULSE 83; RESP 17
--- NOTE | 2016-11-26 13:00 | PCM.PNPSY ---
Subjective Date of Service Nov 26, 2016 Subjective I spent 30 minutes both reviewing treatment plan and providing supportive/ educational psychotherapy. I spent more than 50% of the time counseling the patient. Sarita reports no difficulty . Staff reports that she is now participating in one- to-one unit and group activities but still tends to isolate in her room. We spoke about several themes to her novels that she is working on. She slept 8.5 hours and denies depression manic or psychotic symptoms review. Mental Status Exam Appearance: Neat/well groomed Attitude: Pleasant, Cooperative Behavior: No unusual behavior Affect: Well Modulated/Appropriate Mood: Euthymic Thought Process/Associations: Logical/Sequential, Goal Directed Speech Production: Normal Speech Rate: Normal Speech Articulation: Normal Thought Content: Suspicious, Perseveration Danger to Self/Suicidal Ideati: None Danger to Others: None Delusions: Paranoid (Endorses) Consciousness: Alert Orientation: Person, Place, Date, Situation Memory: Grossly Intact Estimate Intellectual Function: Average Attention/Concentration & Cogn: Grossly Intact Insight: Limited Judgement: Limited Mental Health Plan Sarita is a 65-year-old, white female, admitted initially on a 72 hour involuntary treatment hold after police found the body of the client. 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 He had apparently of natural causes several weeks prior to her admission. She is still reporting delusional content, but it appears to be slowly improving over time. She appears more positive regarding family. She is more open to receiving assistance. She does not appear to be responding to internal stimuli. She continues to have a fixed delusional belief system That becomes apparent if you start to ask about events leading up to admission ( believes that she is a author of 40 books, believes that the previous house that she was staying and working at was hers and that it is [place] of [place]). I believe she was traumatized by the of the person she was taking care of. Whenever you return to these events she responds with Multiple different delusional beliefs. I believe she would do quite well in an adult family home. Sarita is making slow but steady progress. At this point I do not believe she is able to advocate for herself and safely attend to activities of daily living.She believes there is nothing wrong and she wishes to leave. She sees no reason that she should be on psychiatric medications. She appears bright, has better thought organization and seems to be having a good response to Abilify. She is writing stories, and has multiple folders full of semi-fiction semi- historical stories. The writing is organized legible and highly imaginative. She appears to be reconstituting her cognitive executive functioning. [place] AXIS I Schizophrenia chronic paranoid type AXIS II Defer. AXIS III None. AXIS IV Severe. AXIS V Current global assessment of functioning equal to 35. Medications Aripiprazole 10mg at bedtime Treatments 1. The patient is admitted to the inpatient unit and will be provided a safe and secure environment. 2. The patient is denying current active suicidality and is not in need of a one-to-one at this time. 3. The patient is encouraged to participate with group and milieu activities. 4. The patient will be seen by the treatment team on a daily basis to assess symptoms, side effects and response to treatment. 5. Continue aripiprazole 10 mg by mouth at bedtime. 6. The patient received a 90 day commitment order on 11/01/2016. 7. The patient is currently on a wait list for [facility]. Matt Rabago MD Nov 26, 2016 13:00
--- NOTE | 2016-11-26 16:18 | NUR ---
Nursing Notes [id number] S: " I am doing good. O: Pt cooperative, pleasant and participating with group. Pt is very inter active with staff and patients. 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 Pt had visitors today for visiting hours. A: Pt appears well kept today. P: Monitor for safety and response to treatment. Follow plan of care.
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
--- NOTE | 2016-11-26 21:25 | NUR ---
Observations 0900 to 2130 Pt affect and mood was same as previous days on the unit. Pt is guarded and isolative. Pt speech and eye contact was ok. Pt attended community meeting and set a daily goal. Pt was minimally social with staff and select peers when approached. Pt continues to give short responses when approached. Pt attended meals in [facility]. and ate 100% of her meals. Pt maintained behavior throughout the shift. Pt was polite, pleasant and cooperative. Pt was in her room during free time and keeps to herself. Pt was observed every 15 minutes throughout the shift as ordered.
--- NOTE | 2016-11-26 22:57 | NUR ---
Nursing Note Evening Shift 7pm to 11pm AAOx3 Behavior - Pt had a visit with family today which she said went well, avoidant when attempted to engage pt in conversation. Came to wrap up group, reported her goal was to "keep on smiling" and her mood was 9/10. Pt is well groomed, appetite is good. Affect bright, mood congruent, denies symptoms of depression or anxiety Thought process - Per report family reported that pt was more delusional than usual. She told family that doctor gave her money to get a cab and that he had gone to her house on a field trip and had found multiple bodies. Nursing/ Medication - Pt compliant with medication, no side effects reported or observed, no medical issues or prn's required.
--- NOTE | 2016-11-27 05:33 | NUR ---
Electrical And Electronic Assembler 11pm to 7am Pt slept through the night uninterrupted. In no acute distress. Monitored q 15 minutes for safety location and accountability
--- NOTE | 2016-11-27 11:04 | NUR ---
DAY SHIFT 7-7 S/O- Patient staying mostly in room. 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 Appears calm, and appropriate. Requesting unlined paper to write on, nurse provided paper. A-Patient would benefit from more interaction with other patients. Slept 9 hours, appears clean and well groomed. States mood 03/19, goal to stay mentally and physically healthy. P-[facility] list? come up with consistent medication regime. Addendum: 11/27/16 at 1134 by DAVID KHANNA RN Amended: Links added.
--- NOTE | 2016-11-27 13:40 | PCM.PNPSY ---
Subjective Date of Service Nov 27, 2016 Subjective Patient states that she was able to send off for her certificate and is awaiting a response. She states that the individual who claims to be her son provided the check. She also states that her family is working on finding an apartment for her on discharge. Continues to report belief in multiple bodies, etc. The patient states that she is not interested in taking medications on discharge or having follow-up, "I don't think I['m interested in medications." She would like to have a job in maintenance, housekeeping, or caregiving. She reports enjoying reading science fiction book. She denies medical complaints or side effects. Sleep: 9 hours, "pretty well" Appetite: "pretty good." Suicidal and homicidal ideation: denies Auditory hallucinations/Visual hallucinations: denies Other Psychotic Symptoms: as above Anxiety: denies Depression: denies Mental Status Exam Appearance: Neat/well groomed Attitude: Pleasant, Cooperative Behavior: No unusual behavior Affect: Well Modulated/Appropriate Mood: Euthymic Thought Process/Associations: Logical/Sequential, Goal Directed Speech Production: Normal Speech Rate: Normal Speech Articulation: Normal Thought Content: Suspicious, Perseveration Danger to Self/Suicidal Ideati: None Danger to Others: None Delusions: Paranoid (Endorses) Hallucinations: Auditory (Denies), Visual (Denies) Consciousness: Alert Orientation: Person, Place, Date, Situation Memory: Grossly Intact Estimate Intellectual Function: Average Attention/Concentration & Cogn: Grossly Intact Insight: Limited Judgement: Limited Mental Health Plan The patient is a 65-year-old, female admitted on a 72 hour involuntary hold. 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 He apparently of natural causes several weeks prior. She was initially held in retirement under investigation of a homicide but upon discovering the nature of his she was transferred to [facility] for evaluation and treatment. The patient is reporting improved drowsiness with medication changes. The patient appears to have increased insight into her illness and willingness to look at having family assist her; however, she continues to deny her son is her son and is reporting delusional material as noted above. Her son has brought the $28 for her to order her certificate from [place]. She still shoes little insight into her need for ongoing treatment and is not appropriate for a less restrictive option. [place] AXIS I Schizophrenia chronic paranoid type AXIS II Defer. AXIS III None. AXIS IV Severe. AXIS V Current global assessment of functioning equal to 35. Medications Aripiprazole 10mg at bedtime Treatments 1. The patient is admitted to the inpatient unit and will be provided a safe and secure environment. 2. The patient is denying current active suicidality and is not in need of a one-to-one at this time. 3. The patient is encouraged to participate with group and milieu activities. 4. The patient will be seen by the treatment team on a daily basis to assess symptoms, side effects and response to treatment. 5. Increase aripiprazole to 15 mg by mouth at bedtime. 6. The patient received a 90 day commitment order on 11/01/2016. 7. The patient is currently on a wait list for [facility]. Terence Brown MD Nov 27, 2016 13:40
--- NOTE | 2016-11-27 16:58 | NUR ---
[employer] c.m. S.:"I'm fine... I don't need medications. I don't have problems. 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 She slept "good." She denied SI/HI, denied AH/VH, denied depression or anxiety. She had "a good visit" yesterday. She continued believing that she "published many books." She spent most of the time by herself. A.: pt. is cooperative, isolative, quiet, paranoid and delusional. P.: monitor behavior, follow care plan.
--- NOTE | 2016-11-27 21:19 | NUR ---
Obs Dayshift Pt is little to no change, pt is spending most of her time in her room. Continues to be responding to IS. Pt is engaging a little more than past. NOt participating in grps other than Morning meeting and wrap up. Pt is polite, calm and appropriate. Ok to poor ADL's, Good meals
--- NOTE | 2016-11-28 02:19 | NUR ---
Observations 1900 to 0700 Pt was in her room for most of the night. Pt did come out for wrap up group and a snack. Pt first appeared asleep at 21:30 and was observed every 15 minutes through the night as directed.
[2016-11-28 10:40] VITALS: BP 128/88; PULSE 89; RESP 16
--- NOTE | 2016-11-28 15:26 | PCM.PNPSY ---
Subjective Date of Service Nov 28, 2016 Subjective The patient reported initially stating that she was "doing good" today and was happy that it was appearing like spring was starting. She stated her family will was looking for a place to stay. We again broached the subject of taking medications on discharge and a less restrictive alternative. We discussed a number of the patient's delusions and when confronted with this she stated, "then are you calling me a liar?" She then went on to talk about the 14 individuals were coming in and out of the house and that there were 5 women who pretended to be men. The interview ended by her stating that she would consider what to do about medications and treatment on discharge. She denies medical complaints or side effects. Sleep: 8 hours Appetite: "Okay." Suicidal and homicidal ideation: denies Auditory hallucinations/Visual hallucinations: denies Other Psychotic Symptoms: as above Anxiety: denies Depression: denies Current Medications Current Medications Aripiprazole 15 mg HS PO Last administered on 11/27/16t 20:13; Admin Dose 15 MG ; Start 11/27/16 at 21:00 Mental Status Exam Vital Signs Vital Signs Date Time Temp Pulse Resp B/P Pulse Ox O2 Delivery O2 Flow Rate FiO2 11/28/16 10:40 36.6 89 16 128/88 Appearance: Neat/well groomed Attitude: Pleasant, Cooperative Behavior: No unusual behavior Affect: Well Modulated/Appropriate Mood: Euthymic Thought Process/Associations: Logical/Sequential, Goal Directed Speech Production: Normal Speech Rate: Normal Speech Articulation: Normal Thought Content: Suspicious, Perseveration Danger to Self/Suicidal Ideati: None Danger to Others: None Delusions: Paranoid (Endorses) Hallucinations: Auditory (Denies), Visual (Denies) Consciousness: Alert Orientation: Person, Place, Date, Situation Memory: Grossly Intact Estimate Intellectual Function: Average Attention/Concentration & Cogn: Grossly Intact Insight: Limited Judgement: Limited Mental Health Plan Sarita is a 65-year-old, female admitted on a 72 hour involuntary hold. Police initially found the body of a man on the porch of their house. 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 He apparently of natural causes several weeks prior. She was [place] [facility] [place] investigation of a homicide but upon discovering the nature of his she was transferred to [facility] for evaluation and treatment. The patient reports no side effects and is tolerating the increase in aripiprazole. She continues to spontaneously report delusions as noted above with little insight. She is unwilling to participate in outpatient treatment or take medications and is therefore not appropriate for a less restrictive order. [place] AXIS I Schizophrenia chronic paranoid type AXIS II Defer. AXIS III None. AXIS IV Severe. AXIS V Current global assessment of functioning equal to 35. Medications Aripiprazole 15mg at bedtime Treatments 1. The patient is admitted to the inpatient unit and will be provided a safe and secure environment. 2. The patient is denying current active suicidality and is not in need of a one-to-one at this time. 3. The patient is encouraged to participate with group and milieu activities. 4. The patient will be seen by the treatment team on a daily basis to assess symptoms, side effects and response to treatment. 5. Continue medications as ordered and await response to increased aripiprazole. 6. The patient received a 90 day commitment order on 11/01/2016. 7. The patient is currently on a wait list for [facility]. Terence Brown MD Nov 28, 2016 15:26
--- NOTE | 2016-11-28 16:41 | NUR ---
Obs Dayshift Little to no change, pt spend much of her time in her room-cleaning, talking w/ unseen others, organizing, etc. Pt is polite, engaging, quiet, IS, superficial. Participating in only AM and PM check in groups. Pt has goals that are unrealistic or far out into the future and very broad. Not Oriented x3, not to situation. Ok ADL's, Good meals
--- NOTE | 2016-11-28 18:40 | NUR ---
Nursing: Day shift: S: " said if I had a job, it would be easier to take the medication at night. I get it then. That way, it doesn't make me fuzzy during the day. He said he will get a court order for me to take it." (Smiles). "I don't see that it makes any difference." O: Sarita is very familiar by now with unit routine. She went to the posted menu and read off what she would receive for supper when talking to her sister on the phone. Smiles rather blankly on approach. Good eye contact. P: Continue to asses for med effectiveness.
--- NOTE | 2016-11-29 01:05 | NUR ---
Observations 1900 to 0700 Pt was in her room for most of the night. Pt did come out for wrap up group and a snack as usual. Pt first appeared asleep at 21:45 and was observed every 15 minutes through the night as directed.
--- NOTE | 2016-11-29 04:04 | NUR ---
Nursing Note [id number] Pt up in milieu upon arrival to unit. Pt up for meals, snack and group. pt noted socializing with peers and staff. Pt c/t have no insight to illness and situation. Pt behaviors appropriate and polite, compliant with meds. Sleep time noted 2145, Q15 min safety checks done per protocol, no distress noted, WCTM sleep, safety, behavior
[2016-11-29 10:16] VITALS: BP 119/83; PULSE 92
--- NOTE | 2016-11-29 13:39 | PCM.PNPSY ---
Subjective Date of Service Nov 29, 2016 Subjective The patient reported that she is feeling "happy, doing good today." She reports that she is waiting for her certificate so that she can get picture ID and eventually go to work. Discussed that if we cannot arrange that here, she can get assistance at [facility]. The patient reported concern that taking aripiprazole will "eventually wear out my heart valves" and so is reluctant to take them for any length of time. She denies medical complaints or side effects. Sleep: 8 hours, reports had "bad nightmare" but good sleep overall. Appetite: "Real good." Suicidal and homicidal ideation: denies Auditory hallucinations/Visual hallucinations: denies Other Psychotic Symptoms: as above Anxiety: denies Depression: denies Current Medications Current Medications Aripiprazole 15 mg HS PO Last administered on 11/28/16t 20:25; Admin Dose 15 MG ; Start 11/27/16 at 21:00 Mental Status Exam Vital Signs Vital Signs Date Time Temp Pulse Resp B/P Pulse Ox O2 Delivery O2 Flow Rate FiO2 11/29/16 10:16 36.6 92 119/83 Appearance: Neat/well groomed Attitude: Pleasant, Cooperative Behavior: No unusual behavior Affect: Well Modulated/Appropriate Mood: Euthymic Thought Process/Associations: Logical/Sequential, Goal Directed Speech Production: Normal Speech Rate: Normal Speech Articulation: Normal Thought Content: Suspicious, Perseveration Danger to Self/Suicidal Ideati: None Danger to Others: None Delusions: Paranoid (Endorses) Hallucinations: Auditory (Denies), Visual (Denies) Consciousness: Alert Orientation: Person, Place, Date, Situation Memory: Grossly Intact Estimate Intellectual Function: Average Attention/Concentration & Cogn: Grossly Intact Insight: Limited Judgement: Limited Mental Health Plan Sarita is a 65-year-old, female admitted on a 72 hour involuntary hold. Police initially found the body of a man on the porch of their house. 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 He apparently of natural causes several weeks prior. She was initially held in half-way under investigation of a homicide but upon discovering the nature of his she was transferred to [facility] for evaluation and treatment. The patient reports no side effects and is tolerating the increase in aripiprazole. The patient is still reluctant to take medications on discharge, but appears to be more willing to consider taking them, "for the rest of [her] life." The patient is now more focused on her discharge plan and future life, which appears to be a positive change. [place] AXIS I Schizophrenia chronic paranoid type AXIS II Defer. AXIS III None. AXIS IV Severe. AXIS V Current global assessment of functioning equal to 35. Medications Aripiprazole 15mg at bedtime Treatments 1. The patient is admitted to the inpatient unit and will be provided a safe and secure environment. 2. The patient is denying current active suicidality and is not in need of a one-to-one at this time. 3. The patient is encouraged to participate with group and milieu activities. 4. The patient will be seen by the treatment team on a daily basis to assess symptoms, side effects and response to treatment. 5. Continue medications as ordered and await response to increased aripiprazole. 6. The patient received a 90 day commitment order on 11/01/2016. 7. The patient is currently on a wait list for [facility]. Terence Brown MD Nov 29, 2016 13:39
--- NOTE | 2016-11-29 14:45 | NUR ---
Nursing Dayshift: S: "My sister called last night. Can I get an envelope? I'm going to write her a letter." O: Patient social on approach. Likes to discuss the trees and the weather outside the hospital. Smiles during interaction. Eating well at meals. Sits with peers though not much conversation with them. Denies anxiety, depression, harmful thoughts, and hallucinations. A: Calm and cooperative. Alert. P: CPOC. Monitor mood and behavior.
--- NOTE | 2016-11-29 17:37 | NUR ---
Manager Benefit/Counselor: S: "I don't want to be on meds all of my life. I'm worried about my heart valves." O: Patient slept 8+ hours last night as per staff. She denies S/I and H/I. She denies auditory and visual hallucinations. Depression is 0/10 and anxiety is 0/10. When asked her mood, patient stated, "I'm doing good, I'm happy." A: Patient is cooperative, euthymic, suspicious, paranoid, slowly improving, limited insight, limited judgment. P: Follow care plan, coordinate out-patient providers.
--- NOTE | 2016-11-29 18:32 | NUR ---
Obs Dayshift Pt has little to no change, continues to spend most of the day in her room cleaning, "organizing", and responding to IS. Pt is polite, positive, minimal engagement w/ others. Pt is coming out to watch some TV or read the paper and back to her room. Ok ADL's, Good meals
--- NOTE | 2016-11-30 05:05 | NUR ---
Nursing Note [id number] Pt c/t exhibit flat affect with minimal social interaction with peers. Pt up for meal, tv and group. Pt c/t be cooperative and polite and denies anxiety, SI, depression and hallucinations. Compliant with meds, no PRN's given. Noted sleep time 2114 with 8 hr uninterrupted. Q15 min safety checks done per protocol, no distress noted. WCTM sleep, safety, behavior
[2016-11-30 08:00] VITALS: BP 113/74; PULSE 79; RESP 15
--- NOTE | 2016-11-30 13:28 | NUR ---
Nursing Note [id number] Behavior S/O: Pt has a good appetite. VS stable. Pt attending groups during the day. Out of room for groups & meals. Interacts minimally with staff & peers. Conversation tracking appropriate & clear. A: Pt presents well outwardly, but con't to have delusions (see psychiatrist notes). P: Provide supportive environment. Monitor medications & effects.
--- NOTE | 2016-11-30 13:57 | PCM.PNPSY ---
Subjective Date of Service Nov 30, 2016 Subjective The patient reported that she is "feeling good" today. She reports that she is waiting for her certificate so that she can get picture ID and eventually go to work. Discussed that we may be able to arrange that here but she would need to be escorted by security and staff member, otherwise she can get assistance at [facility]. The patient still reports long-term concern about taking medications, but is more open to take them. She reported concern about her hair breaking off and agreed to vitamin. She denies medical complaints or side effects. Sleep: 9 hours, "good" Appetite: "pretty good." Suicidal and homicidal ideation: denies Auditory hallucinations/Visual hallucinations: denies Other Psychotic Symptoms: as above Anxiety: denies Depression: denies Mental Status Exam Vital Signs Vital Signs Date Time Temp Pulse Resp B/P Pulse Ox O2 Delivery O2 Flow Rate FiO2 11/30/16 08:00 36.1 79 15 113/74 Appearance: Neat/well groomed Attitude: Pleasant, Cooperative Behavior: No unusual behavior Affect: Well Modulated/Appropriate Mood: Euthymic Thought Process/Associations: Logical/Sequential, Goal Directed Speech Production: Normal Speech Rate: Normal Speech Articulation: Normal Thought Content: Suspicious, Perseveration Danger to Self/Suicidal Ideati: None Danger to Others: None Delusions: Paranoid (Endorses) Hallucinations: Auditory (Denies), Visual (Denies) Consciousness: Alert Orientation: Person, Place, Date, Situation Memory: Grossly Intact Estimate Intellectual Function: Average Attention/Concentration & Cogn: Grossly Intact Insight: Limited Judgement: Limited Mental Health Plan Sarita is a 65-year-old, female admitted on a 72 hour involuntary hold. Police initially found the body of a man on the porch of their house. 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 He apparently of natural causes several weeks prior. She was initially held in residential under investigation of a homicide but upon discovering the nature of his she was transferred to [facility] for evaluation and treatment. The patient reports no side effects and is tolerating the increase in aripiprazole. The patient is still reluctant to take medications on discharge, but appears to be more willing to consider taking them. The patient is now more focused on her discharge plan and future life, which appears to be a positive change. [place] AXIS I Schizophrenia chronic paranoid type AXIS II Defer. AXIS III None. AXIS IV Severe. AXIS V Current global assessment of functioning equal to 35. Medications Aripiprazole 15mg at bedtime Treatments 1. The patient is admitted to the inpatient unit and will be provided a safe and secure environment. 2. The patient is denying current active suicidality and is not in need of a one-to-one at this time. 3. The patient is encouraged to participate with group and milieu activities. 4. The patient will be seen by the treatment team on a daily basis to assess symptoms, side effects and response to treatment. 5. Continue medications as ordered and await response to increased aripiprazole. 6. The patient received a 90 day commitment order on 11/01/2016. 7. The patient is currently on a wait list for [facility]. Terence Brown MD Nov 30, 2016 13:57
--- NOTE | 2016-11-30 17:46 | NUR ---
Observations 0900 to 2130 Pt affect and mood was same as previous days on the unit. Pt is guarded and isolative. Pt speech and eye contact was ok. Pt attended community meeting and set a daily goal. Pt was minimally social with staff and select peers when approached. Pt continues to give short responses when approached. Pt attended meals in D.R. and ate 100% of her meals. Pt maintained behavior throughout the shift. Pt was polite, pleasant and cooperative. Pt was in her room during free time and keeps to herself. Pt attended group but only briefly. Pt was observed every 15 minutes throughout the shift as ordered.
--- NOTE | 2016-11-30 18:47 | NUR ---
Regional Property Manager/Counselor: S: "I'm feeling good." O: Patient slept 9 hours last night as per staff. She denies S/I and H/I. She denies auditory and visual hallucinations. Depression is 0/10 and anxiety is 0/10. When asked her mood, patient stated, "I'm feeling good." A: Patient is cooperative, euthymic, suspicious at times, slowly improving, limited insight, limited judgment. P: Follow care plan, coordinate out-patient providers.
--- NOTE | 2016-11-30 18:58 | NUR ---
Nurses Note Evening Patient has been in and out of her room without interaction with others. Her appetite,hygiene and sleep patterns are undisturbed. She remains medication compliant without adverse effects. Patient remains superficial in conversations but has been pleasant and polite. Maintain q 15min. checks for safety and support. Addendum: 11/30/16 at 1907 by DAVEY MAN RN Amended: Links added.
--- NOTE | 2016-12-01 05:20 | NUR ---
Nursing Noc Pt reports good day. "I feel more awake, and completed goal of keeping busy. Rates day as /. Medication compliant and was noted to come to medication room for HS med without being asked. Pt has been ambulating around unit and participating with evening wrap up group. Pt had HS PO snack. First noted to be asleep at 2215 during Q15 minute safety checks, and remained asleep throughout the night.
--- NOTE | 2016-12-01 05:39 | NUR ---
OBSERVATIONS 1900 TO 0700 Pt was pleasant and cooperative with staff. Pt participated in evening wrap-up group rating her day and her mood 05/20 and stating that she met her goal of keeping busy. Pt was recorded asleep at 2230 and slept through the night apart from some restlessness at 0145, 0245, and 0415. Maintained Q15 checks for safety as directed.
[2016-12-01] MEDS: Multivit-Miner-Folic Acid-Iron Tablet PO SCH (08:00)
[2016-12-01 08:40] VITALS: BP 112/72; PULSE 81; RESP 16
[2016-12-01] MEDS ORDERED: Magnesium Hydroxide 10 mL Oral Concentration PO PRN (10:10)
[2016-12-01] MEDS ORDERED: LORazepam 1 mg Tablet PO PRN (10:10)
[2016-12-01] MEDS ORDERED: Benzocaine-Menthol Lozenge 2/Pkg PO PRN (10:10)
[2016-12-01] MEDS ORDERED: Alum-Mag Hydrox-Simeth 30 mL Suspension PO PRN (10:10)
--- NOTE | 2016-12-01 12:13 | NUR ---
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 There are mining caves and they find mummies in the caves. I usually dont write about bodies but my customers like it, then the money goes into accounts for the investors and I never see any of it. " O: Pt cooperative, pleasant and participating with group. Pt is limited with interactions of staff and other patients. She has been isolating to her room today. A: Pt appears well kept today. P: Monitor for safety and response to treatment. Follow plan of care.
--- NOTE | 2016-12-01 14:50 | PCM.PNPSY ---
Subjective Date of Service Dec 01, 2016 Subjective The patient reported that she is "doing good" today. We discussed potentially going to [facility] and that the patient would have to continue to take medications and comply with treatment. The patient was agreeable to this referral and these conditions. We discussed that we may be able to assist her with her identification but she would need to be escorted by security and staff member, otherwise she can get assistance at [facility] or potentially [facility]. The patient still reports long-term concern about taking medications, but is willing to take them. She denies medical complaints or side effects. Sleep: 8 hours, "good" Appetite: "good." Suicidal and homicidal ideation: denies Auditory hallucinations/Visual hallucinations: denies Other Psychotic Symptoms: as above Anxiety: denies Depression: denies Current Medications Current Medications Prenat Multivit/ [place]/Iron/Folic Ac 1 tablet DAILY PO Last administered on 12/01t 08:00; Admin Dose 1 TABLET; Start 12/01/16 at 08:30 Mental Status Exam Appearance: Neat/well groomed Attitude: Pleasant, Cooperative Behavior: No unusual behavior Affect: Well Modulated/Appropriate Mood: Euthymic Thought Process/Associations: Logical/Sequential, Goal Directed Speech Production: Normal Speech Rate: Normal Speech Articulation: Normal Thought Content: Suspicious, Perseveration Danger to Self/Suicidal Ideati: None Danger to Others: None Delusions: Paranoid (Endorses) Hallucinations: Auditory (Denies), Visual (Denies) Consciousness: Alert Orientation: Person, Place, Date, Situation Memory: Grossly Intact Estimate Intellectual Function: Average Attention/Concentration & Cogn: Grossly Intact Insight: Limited Judgement: Limited Mental Health Plan Sarita is a 65-year-old, female admitted on a 72 hour involuntary hold. Police initially found the body of a man on the porch of their house. 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 He apparently of natural causes several weeks prior. She was initially held in senior care under investigation of a homicide but upon discovering the nature of his she was transferred to [facility] for evaluation and treatment. The patient reports no side effects and is tolerating the increase in aripiprazole. The patient is still reluctant to take medications on discharge, but appears to be more willing to consider taking them. The patient is now more focused on her discharge plan and future life, and was amenable for referral to an outpatient transitional facility. [place] AXIS I Schizophrenia chronic paranoid type AXIS II Defer. AXIS III None. AXIS IV Severe. AXIS V Current global assessment of functioning equal to 35. Medications Aripiprazole 15mg at bedtime Treatments 1. The patient is admitted to the inpatient unit and will be provided a safe and secure environment. 2. The patient is denying current active suicidality and is not in need of a one-to-one at this time. 3. The patient is encouraged to participate with group and milieu activities. 4. The patient will be seen by the treatment team on a daily basis to assess symptoms, side effects and response to treatment. 5. Continue medications as ordered and await response to increased aripiprazole. 6. The patient received a 90 day commitment order on 11/01/2016. 7. The patient is currently on a wait list for [facility]. Terence Brown MD Dec 01, 2016 14:50
--- NOTE | 2016-12-01 18:29 | NUR ---
[facility] Day Shift Pt affect and behavior unchanged from previous shifts. Pt maintained behavior control throughout the shift. Pt affect appears mostly flat. Pt spends most of the shift resting in her room, occasionally participating in unit activities and interacting lightly with peers in the dining room. Pt is not overly social with staff and peers when active on the unit, but is appropriate when engaged. Pt lightly participated in group activities throughout the shift. Pt attended all meals and ate approx 100% of all meals.
--- NOTE | 2016-12-01 19:22 | NUR ---
Records Management Associate/Counselor: S: "I'm feeling good today." O: Patient slept 8+ hours last night as per staff. She denies S/I and H/I. She denies auditory and visual hallucinations. Depression is 0/10 and anxiety is 0/10. This fiction and nonfiction prose writer faxed a Referral Form to [facility] for possible screen and admission. A: Patient is cooperative, pleasant, euthymic, suspicious at times, paranoid, limited insight, limited judgment. P: Follow care plan, coordinate out-patient providers.
--- NOTE | 2016-12-02 05:39 | NUR ---
Nursing Noc Pt noted to spent time in DR starring out window or just not looking at anything. Denies visual hallucinations. Not interacting with other patients. Will interact with staff for needs. Noted to be asleep at 2145 and remained asleep throughout the night. BHCP Continuing to monitor mood, behavior, emotional state and sleep times by Q15 minute safety checks.
[2016-12-02 08:07] VITALS: BP 126/84; PULSE 81; RESP 16
[2016-12-02] MEDS: Multivit-Miner-Folic Acid-Iron Tablet PO SCH (08:16)
--- NOTE | 2016-12-02 13:24 | PCM.PNPSY ---
Subjective Date of Service Dec 02, 2016 Subjective The patient reported that she is "fine" today. We again discussed potentially going to [facility] and that the patient would have to continue to take medications and comply with treatment. The patient was agreeable to this referral and these conditions. On more in depth questioning, she stated that she believed the house was not hers but belonged to [facility]. She also reported her belief that the neighbors had brought bodies to the house and at times"[place]." She did state that she could stay away from the home if required to do so. She denies medical complaints or side effects. Sleep: 8 hours, "good" Appetite: "okay." Suicidal and homicidal ideation: denies Auditory hallucinations/Visual hallucinations: denies Other Psychotic Symptoms: as above Anxiety: denies Depression: denies Current Medications Current Medications Ibuprofen 600 mg Q4H PRN PO Last administered on 12/02/16 12:48; Admin Dose 600 MG; Start 12/01/16 at 10:10 Prenat Multivit/ [place]/Iron/Folic Ac 1 tablet DAILY PO Last administered on 12/02 08:16; Admin Dose 1 TABLET; Start 12/01/16 at 08:30 Mental Status Exam Vital Signs Vital Signs Date Time Temp Pulse Resp B/P Pulse Ox O2 Delivery O2 Flow Rate FiO2 12/02/16 08:07 36.6 81 16 126/84 Appearance: Neat/well groomed Attitude: Pleasant, Cooperative Behavior: No unusual behavior Affect: Well Modulated/Appropriate Mood: Euthymic Thought Process/Associations: Logical/Sequential, Goal Directed Speech Production: Normal Speech Rate: Normal Speech Articulation: Normal Thought Content: Suspicious, Perseveration Danger to Self/Suicidal Ideati: None Danger to Others: None Delusions: Paranoid (Endorses) Hallucinations: Auditory (Denies), Visual (Denies) Consciousness: Alert Orientation: Person, Place, Date, Situation Memory: Grossly Intact Estimate Intellectual Function: Average Attention/Concentration & Cogn: Grossly Intact Insight: Limited Judgement: Limited Mental Health Plan Sarita is a 65-year-old, female admitted on a 72 hour involuntary hold. Police initially found the body of a man on the porch of their house. 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 He apparently of natural causes several weeks prior. She was initially held in skilled nursing under investigation of a homicide but upon discovering the nature of his she was transferred to [facility] for evaluation and treatment. The patient reports no side effects and is tolerating the increase in aripiprazole. The patient is now stating that she is willing to take medications on discharge if we were able to arrange transfer to [facility]. The patient's delusions are still very similar at their core, but now she is denying ownership of the home, but still asserts that she lived there a long time (which she did). [place] AXIS I Schizophrenia chronic paranoid type AXIS II Defer. AXIS III None. AXIS IV Severe. AXIS V Current global assessment of functioning equal to 35. Medications Aripiprazole 15mg at bedtime Treatments 1. The patient is admitted to the inpatient unit and will be provided a safe and secure environment. 2. The patient is denying current active suicidality and is not in need of a one-to-one at this time. 3. The patient is encouraged to participate with group and milieu activities. 4. The patient will be seen by the treatment team on a daily basis to assess symptoms, side effects and response to treatment. 5. Continue medications as ordered and await response to increased aripiprazole. 6. The patient received a 90 day commitment order on 11/01/2016. 7. The patient is currently on a wait list for [facility]. Terence Brown MD Dec 02, 2016 13:24
--- NOTE | 2016-12-02 14:22 | NUR ---
Nursing Day Shift- S- "I'm having a good day. I sent a letter to my sister. Corresponding is always good." O- Pt. had slept well again per report. She eat 100% at meals and was appropriately dressed. Pt. spent most of the day in her room. She continues to deny any mental health concerns or symptoms. A- Delusional, pleasant, superficial, appropriate with ADL's and peer interactions. P- Cont. BHTP.
--- NOTE | 2016-12-02 17:21 | NUR ---
Observations from [id number] Pt has been semi-social today. Pt has spent time alone in her room, but also participated in groups and seems to be interacting well with peers and staff. Pt attended community meeting today and set a goal of writing a letter to her family and rated her mood 910. Pt ate 100% of all meals and has been observed every 15 minutes as directed.
--- NOTE | 2016-12-02 19:08 | NUR ---
NURSING NOTE [id number] Mood: "good, I've had a good day, staying busy" Affect: neutral Behavior: visible on fringes of milieu, spends time in her room sitting on her bed staring at the wall for periods of time. She wrote a letter to her sister. 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 Denies SI/HI/anxiety/depression.
--- NOTE | 2016-12-03 03:39 | NUR ---
Observations 1900 to 0700 Pt was in her room for most of the night. Pt did come out for wrap up group and a snack as usual. Pt first appeared asleep at 20:45 and was observed every 15 minutes through the night as directed.
--- NOTE | 2016-12-03 05:47 | NUR ---
Sleep 11p-7a Adequate sleep through night with no noted distress or awakening per protocol checks. Total sleep over 8.5 hours.
[2016-12-03] MEDS: Multivit-Miner-Folic Acid-Iron Tablet PO SCH (07:54)
[2016-12-03 08:15] VITALS: BP 133/86; PULSE 96; RESP 16
--- NOTE | 2016-12-03 09:31 | NUR ---
Fruit Picker./ c.m. S.:"I'm real good." O.: met with pt. and MD together in pt.'s room. She was sitting on her bed and staring at the wall. She slept "goo" last night. She denied SI/HI, denied AH/VH, denied depression or anxiety. She is eating well. She is spending a lot of time in her room. She said that she was "writing 2 books. 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 She couldn't tell where money was invested. She agreed to go to [facility] if there is a bed available. She agreed to take meds there. A.: pt. is cooperative, isolative, quiet. She is internally preoccupied, paranoid and delusional at times. P.: monitor behavior, check with [facility] regarding bed availability, monitor meds intake; follow care plan.
--- NOTE | 2016-12-03 09:52 | PCM.PNPSY ---
Subjective Date of Service Dec 03, 2016 Subjective The patient reported that she is "real good" today. We again discussed potentially going to [facility] and that the patient would have to continue to take medications and comply with treatment. The patient was agreeable to this referral and these conditions. 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 She denies medical complaints or side effects. Sleep: 10+ hours, "good" Appetite: "okay." Suicidal and homicidal ideation: denies Auditory hallucinations/Visual hallucinations: denies Other Psychotic Symptoms: as above Anxiety: denies Depression: denies Current Medications Current Medications Ibuprofen 600 mg Q4H PRN PO Last administered on 12/02/16t 12:48; Admin Dose 600 MG; Start 12/01/16 at 10:10 Mental Status Exam Appearance: Neat/well groomed Attitude: Pleasant, Cooperative Behavior: No unusual behavior Affect: Well Modulated/Appropriate Mood: Euthymic Thought Process/Associations: Logical/Sequential, Goal Directed Speech Production: Normal Speech Rate: Normal Speech Articulation: Normal Thought Content: Suspicious, Perseveration Danger to Self/Suicidal Ideati: None Danger to Others: None Delusions: Paranoid (Endorses) Hallucinations: Auditory (Denies), Visual (Denies) Consciousness: Alert Orientation: Person, Place, Date, Situation Memory: Grossly Intact Estimate Intellectual Function: Average Attention/Concentration & Cogn: Grossly Intact Insight: Limited Judgement: Limited Mental Health Plan The patient is a 65-year-old, female admitted on a 72 hour involuntary hold. Police initially found the body of a man on the porch of their house. 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 He apparently of natural causes several weeks prior. She was initially held in assisted under investigation of a homicide but upon discovering the nature of his she was transferred to [facility] for evaluation and treatment. She was detained on a 14 day order and subsequently on a 90 day more restrictive order to [facility]. The patient reports no side effects and is tolerating the increase in aripiprazole. The patient is now stating that she is willing to take medications on discharge if we were able to arrange transfer to [facility]. The patient's delusions are still very similar at their core, but now she is denying ownership of the home, but still asserts that she lived there a long time (which she did). 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 These fixed delusions do not preclude placement of the patient in the community. [place] AXIS I Schizophrenia chronic paranoid type AXIS II Defer. AXIS III None. AXIS IV Severe. AXIS V Current global assessment of functioning equal to 35. Medications Aripiprazole 15mg at bedtime vitamin daily Ibuprofen 600 mg every 4 hours when necessary pain not to exceed 3000 mg per day. Treatments 1. The patient is admitted to the inpatient unit and will be provided a safe and secure environment. 2. The patient is denying current active suicidality and is not in need of a one-to-one at this time. 3. The patient is encouraged to participate with group and milieu activities. 4. The patient will be seen by the treatment team on a daily basis to assess symptoms, side effects and response to treatment. 5. Continue medications as ordered and await response to increased aripiprazole , patient may need further increase over time although this could be accomplished as an outpatient. 6. The patient received a 90 day commitment order on 11/01/2016. 7. Awaiting response from [facility] regarding whether she has been accepted there. If accepted, her 90 day more restrictive order would need to be switched to a less restrictive order. 8. The patient is currently on a wait list for [facility]. Terence Brown MD Dec 03, 2016 09:52
--- NOTE | 2016-12-03 13:21 | NUR ---
Nursing Day Shift- S- "I'm doing great." O- Pt. continues to eat well, sleep well, and tend to her ADL's appropriately. She was observed having a conversation is her room while standing in the middle of it. It sounded as if she were responding to questions, then offering feedback. Pt. was alone without a telephone. She continues to isolate pleasantly in her room a good part of day with no signs of entertainment, books, pens, etc. A- Appears to be responding to auditory hallucinations. Appropriate behavior when in public areas. P- Cont. BHTP.
--- NOTE | 2016-12-03 17:48 | NUR ---
[facility] Day Shift Pt affect and behavior unchanged from previous shifts. Pt maintained behavior control throughout the shift. Pt affect appears mostly flat. Pt spends most of the shift resting in her room, occasionally participating in unit activities and interacting lightly with peers in the dining room. Pt is not overly social with staff and peers when active on the unit, but is appropriate when engaged. Pt lightly participated in group activities throughout the shift. Pt attended all meals and ate approx 100% of all meals.
--- NOTE | 2016-12-03 21:33 | NUR ---
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 She denies AH/VH. Denies SI/HI/depression/anxiety. When asked about readiness for potential d/c she stated; "I guess it'll mean I have to work again. 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 reported it was effective upon reassessment
--- NOTE | 2016-12-04 04:34 | NUR ---
Nursing Note Advertising Sales Agent 11pm to 7am Pt in bed at start of shift. Slept soundly throughout the night. No issues reported or observed. Monitored q 15 minutes for safety, location and accountability.
[2016-12-04] MEDS: Multivit-Miner-Folic Acid-Iron Tablet PO SCH (08:24)
--- NOTE | 2016-12-04 08:26 | NUR ---
Lapel Baster./ c.m. S.:"I'm fine." O.: met with pt. before breakfast. She "slept good" last night. She denied SI/HI, denied AH/VH, denied depression or anxiety. 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 A.: pt. is isolative, cooperative, quiet, internally preoccupied. P.: monitor behavior, follow care plan. Addendum: 12/04/16 at 1011 by LAINEY RUDD [facility] Lapel Baster./ c.mJuan Antonio - [facility] update O.: spoke with Evie, admission nurse at [facility] about pt.'s place on a waiting list there. Pt. is #1 for NS and #7 overall for Geriatric Unit. Addendum: 12/04/16 at 1354 by LAINEY RUDD [facility] discharge plan O.: spoke with Danielito Sellers c.m. at [facility] ([phone]). He said that there was a female bed available for the pt. Paving Supervisor spoke with Dr. Hima V. MD who was positive about this arrangement. Pt. will be discharged tomorrow to [facility]. Danielito will come tomorrow at noon to pick pt. up. He asked to fax pt.'s prescriptions to [facility] in [facility].
[2016-12-04 10:38] VITALS: BP 127/85; PULSE 88; RESP 16
--- NOTE | 2016-12-04 11:46 | PCM.PNPSY ---
Subjective Date of Service Dec 04, 2016 Subjective I spent 30 minutes reviewing Sarita's treatment plan and providing supportive/ educational psychotherapy. I spent more than 50% of the time counseling the patient. Sarita reports no difficulty with thought organization or mood stability. She slept 8.5 hours and denies depression manic or psychotic symptoms review. She denied medication side effects. Staff reports that she appears to be responding to internal stimuli when alone in her room. She is participating in one-to-one unit and group activities but still tends to isolate in her room. We spoke about several themes to her [employer] that she is working on and related this to her Current struggle for housing and independence. Mental Status Exam Vital Signs Vital Signs Date Time Temp Pulse Resp B/P Pulse Ox O2 Delivery O2 Flow Rate FiO2 12/04/16 10:38 36.3 88 16 127/85 Appearance: Neat/well groomed Attitude: Pleasant, Cooperative Behavior: No unusual behavior Affect: Well Modulated/Appropriate Mood: Euthymic Thought Process/Associations: Logical/Sequential, Goal Directed Speech Production: Normal Speech Rate: Normal Speech Articulation: Normal Thought Content: Suspicious, Perseveration Danger to Self/Suicidal Ideati: None Danger to Others: None Delusions: Paranoid (Endorses) Hallucinations: Auditory (Denies), Visual (Denies) Consciousness: Alert Orientation: Person, Place, Date, Situation Memory: Grossly Intact Estimate Intellectual Function: Average Attention/Concentration & Cogn: Grossly Intact Insight: Limited Judgement: Limited Mental Health Plan Sarita is a 65-year-old, white female, admitted initially on a 72 hour involuntary treatment hold after police found the body of the client. 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 He had apparently of natural causes several weeks prior to her admission. She appears more positive regarding family. She is more open to receiving assistance. During my one-to-one sessions She does not appear to be responding to internal stimuli. She continues to have a fixed delusional belief system That becomes apparent if you start to ask about events leading up to admission. Staff report that when she is alone in her room She appears to be loudly talking to herself and responding to internal stimuli. I believe she was traumatized by the of the person she was taking care of. Whenever you return to these events she responds with Multiple different delusional beliefs. Sarita is making slow but steady progress. I do not believe she is able to advocate for herself and safely attend to activities of daily living. She believes there is nothing wrong and she wishes to leave. She sees no reason that she should be on psychiatric medications. The patient reports no side effects and is tolerating the increase in aripiprazole. The patient is now stating that she is willing to take medications on discharge if we were able to arrange transfer to [facility]. [place] AXIS I Schizophrenia chronic paranoid type AXIS II Defer. AXIS III None. AXIS IV Severe. AXIS V Current global assessment of functioning equal to 35. Medications Aripiprazole 15mg at bedtime vitamin daily Ibuprofen 600 mg every 4 hours when necessary pain not to exceed 3000 mg per day. Treatments 1. The patient is admitted to the inpatient unit and will be provided a safe and secure environment. 2. The patient is denying current active suicidality and is not in need of a one-to-one at this time. 3. The patient is encouraged to participate with group and milieu activities. 4. The patient will be seen by the treatment team on a daily basis to assess symptoms, side effects and response to treatment. 5. Continue medications as ordered and await response to increased aripiprazole , patient may need further increase over time although this could be accomplished as an outpatient. 6. The patient received a 90 day commitment order on 11/01/2016. 7. Awaiting response from [facility] regarding whether she has been accepted there. If accepted, her 90 day more restrictive order would need to be switched to a less restrictive order. 8. The patient is currently on a wait list for [facility]. Matt Rabago MD Dec 04, 2016 11:46
--- NOTE | 2016-12-04 17:25 | NUR ---
Obs Dayshift Pt is calm, co-operative, participating mostly in AM/PM groups. Pt stated that she is leaving soon and going to the transition house, smiling, and appeared happy about this. Pt continues to respond to unseen others in her room, does sit in the milieu for short periods of time either reading the paper or watching TV. Pt is polite w/ peers, but little engagement. Good ADL's, Good meals
--- NOTE | 2016-12-04 19:16 | NUR ---
NURSING NOTE [id number] Mood: "good" Affect: internally preoccupied Behavior: visible on fringes of milieu, watching TV off and on, sitting on her bed staring into space for long periods of time Thought processes: pt. denies any SI/HI/AH/VH. Not seen or heard speaking to unseen others this shift. 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
--- NOTE | 2016-12-05 02:52 | NUR ---
Observations 1900 to 0700 Pt was in her room for most of the night. Pt did come out for wrap up group and a snack as usual. Pt was polite and cooperative with staff. Pt first appeared asleep at 21:15 and was observed every 15 minutes through the night as directed.
[2016-12-05] MEDS: Multivit-Miner-Folic Acid-Iron Tablet PO SCH (08:18)
[2016-12-05] MEDS ORDERED: ARIP15TA2 PO (10:24)
--- NOTE | 2016-12-05 10:31 | NUR ---
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 S.:"I'm doing pretty good." O.: met with pt. to discuss her discharge plan. She completed Safety plan in the best of her ability. She denied SI/HI, denied AH/VH, denied depression or anxiety. She is aware of her discharge today at noon to [facility]. She has appt. with Danielito Sellers c.m. at [facility] today, December 05 at 12:00 noon ([phone]). Danielito will arrange pt.'s follow up appts after this intake. A.: pt. is cooperative, pleasant, isolative and quiet. P.: monitor behavior, follow care plan.
--- NOTE | 2016-12-05 10:32 | PCM.DIMED ---
Discharge Instructions Date of Service Dec 05, 2016 Dates of Hospitalization Oct 05, 2016 at 18:59 Discharge Diagnosis Discharge Diagnosis AXIS I Schizophrenia chronic paranoid type AXIS II Defer. AXIS III None. AXIS IV Severe. AXIS V Current global assessment of functioning equal to 40 Medication Instructions I Strongly encouraged patient to follow up with outpatient care: 1-Recommended patient takes medication as prescribed and not alter this unless under the direct care of a provider: Abilify 15 mg daily 2-Recommend client refrain from recreational drugs and alcohol while taking psychiatric medications. Diet No restrictions Activity No restrictions Call your provider Fever or Chills Patient Instructions Follow-up plan Patient to be discharged to [email or web address] assisted living. She will be given a month's worth of medications. [facility] to assist patient in getting medication card, Social Security number certificate, and arrange appointment with local primary care physician. Recommend patient follow up with intake at [facility] for ongoing psychiatric care. Follow-up with PCP in: 2 weeks Matt Rabago MD Dec 05, 2016 10:32
[2016-12-05 11:04] VITALS: BP 123/89; PULSE 87; RESP 16
--- NOTE | 2016-12-05 14:21 | DIS ---
[address] [address] DISCHARGE SUMMARY PATIENT: LALI DONOHUE : 1950 MR#: [id number] ADMIT: 10/05/2016 JOB ID: [id number] DIS: DATE OF ADMISSION: 10/06/2016 DATE OF DISCHARGE: 12/05/2016 IDENTIFICATION: The patient is a 65-year-old single white female. 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 She has been living at this residence where she has been providing care for Charlie. REASON FOR ADMISSION: Client brought to the emergency room from [facility] by police for evaluation and treatment of psychosis. SUMMARY OF PRESENT ILLNESS: The patient is a 65-year-old white female admitted initially on a 72-hour involuntary treatment hold after police found the body of the gentleman she was providing care for, Charlie. 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 He had apparently of natural causes several weeks prior to her admission. After he , she apparently rolled him up in a carpet and put him on the front steps. She became completely psychotic and believed that there was an sawyer that had on the porch. The neighbor started noticing that something was not right and call for police, and patient was initially detained in the [facility] and then transferred to our unit for treatment. HOSPITAL COURSE: Client was admitted to our unit and was provided with a high degree of safety through the structure and active adult engagement she received here. We had her participate in one-to-one unit and group activities, focused on improving coping skills and reality-based thinking. Client had multiple paranoid and grandiose delusions. She was disheveled and had extremely poor hygiene at the time of admission. We worked with her to make an alliance and to help get her back into a regular daily schedule. She made slow but steady progress while she was here. She remained in a delusional state despite having trials of both Zyprexa and Abilify. She continues to have delusional thought related to events prior to admission but is not currently responding to internal stimuli and has been very calm and easily managed here on the unit. I believe she was traumatized by the of the person she was taking care of. Whenever you return to these events, she responds with multiple different delusional beliefs. She appears more positive regarding her family and is more open at this time to receiving assistance. She had no side effects to Abilify and tolerated a recent increase to 15 mg per day. The patient is now stating she is willing to take medications on discharge, and we were able to arrange for a transfer to [facility]. DISCHARGE MENTAL STATUS EXAM: Client neatly dressed with good eye contact. Behavior is somewhat withdrawn. Attitude aloof and detached. Speech normal rate, rhythm. Mood euthymic. Affect flat and restricted. Thought process: Client is unable to relate a coherent history. She is able to appreciate simple abstractions and did not appear to be responding to internal stimuli. Thought content significant for themes of future planning how to take care of her needs, especially get a certificate and a Social Security number. She denied auditory hallucinations. Insight and judgment markedly impaired. Impulse control highly contained, yet rigid. Reality testing is moderately impaired. Competence to handle current stressors is currently being overwhelmed. DIAGNOSES: 1. Schizophrenia, chronic paranoid type. 2. Deferred. 3. None. 4. Severe. 5. Current Global Assessment of Functioning equal to 35. DISCHARGE MEDICATIONS: Abilify 15 mg h.s. ACTIVITY AND DIET: Recommend client refrain from recreational drugs and alcohol while taking psychiatric medications. Recommend she not change medications unless under the supervision of a physician. FOLLOWUP PLAN: Client to be discharged to [facility]. They will help her facilitate getting a Social Security number and her certificate to get qualified for Medicaid. I gave her a month's supply of Abilify and recommend intake at [facility] to continue psychiatric medications. At this time, I am dropping her court hold and changing her to voluntary. CONDITION ON DISCHARGE: Good. PROGNOSIS: Good.
--- NOTE | 2016-12-05 14:53 | NUR ---
Nursing: Day shift and Discharge. Sarita was aware from the beginning of the shift that she would be leaving today. She gathered belongings and signed all discharge papers as requested. When signing the form about needing to petition for gun rights, she stated "I had a license to own a gun. I never used it but I had it." When signing the DARIAN to allow [facility] to send records of hospitalization to the case aide at [facility], she was reluctant. She commented "Why does he have to have this information? There is a stigma to being here. I'll sign because you want me to." When asked to sign the form about receiving information about discharge meds as ordered, she stated, "I don't want to take medication but the doctor told me that it I didn't take it he would get a court order." Left unit at 1225 accompanied by Shaun manager income tax from the [facility]. Ambulatory. Addendum: 12/05/16 at 1546 by ANA MARIA HUFF RN Amended: Links added.
== END 2016-12-05 12:25 | disposition home or self-care (01) | DRG 750 ==
LOC: SED 10:54 → MHC 18:59
PROVIDERS: ADMIT Psychiatry & Neurology Psychiatry; ATTEND Psychiatry & Neurology Psychiatry
DX: F20.0 Paranoid schizophrenia (principal)